=== PATIENT | female | born 1940 | race Caucasian/White ===

== ENCOUNTER 2021-09-13 09:28 | Inpatient (IN) | payer MEDICARE ==
[2021-09-13] VITALS (13 sets, daily range): BP systolic 99–123; BP diastolic 55–84
[~2021-09-13] VITALS: Ht 170.2 cm; Wt 68.6 kg
--- NOTE | 2021-09-13 09:40 | PHYS DOC ---
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 She reports that she began to feel slightly weak yesterday. Her daughter reportedly could not get a hold of her, so she called for a welfare check, EMS was called to the home and the patient was found in her bed, with vomit on her clothing. The patient denies fevers. She reports generalized weakness. She reports that she thinks the cough just began yesterday. No sputum production reported. She denies chest pain or dyspnea. She denies headache, dizziness. She denies fall or head injury. She reports generalized abdominal pain and nausea. Her pain is mostly located in the right upper quadrant and right abdomen. She denies urinary symptoms. She is chronically incontinent of urine, no changes with that today. She began experiencing diarrhea symptoms yesterday as well. She denies hematemesis, melena or hemato chezia. She denies having a fever at home, she is afebrile here. She denies recent travel, sick contacts, recent hospitalization. No recent antibiotic use. She reports having no medical problems, reportedly takes no medications. Her glucose is over 200 with EMS. Records here to report that she has a history of hypertension. In route and on arrival she is hypotensive and tachycardic. An IV was established by EMS, a small fluid bolus was initiated, though she has not received much of this by the time she arrived. Review of Systems: Review of Systems: Constitutional: Denies fever or chills. Generalized malaise, fatigue, generalized weakness. Eyes: Denies change in visual acuity. [] HENT: Denies nasal congestion or sore throat. [] Respiratory: Mild, dry cough. Denies dyspnea. Cardiovascular: Denies chest pain or edema. [] GI: Reports abdominal pain, nausea, vomiting, diarrhea. : Denies dysuria. Chronic and unchanged urinary incontinence. Musculoskeletal: Denies back pain or joint pain. [] Integument: Denies rash. [] Neurologic: Denies headache, focal weakness or sensory changes. Generalized weakness. Denies dizziness or syncope. Psychiatric: Denies depression or anxiety. [] Heart Score: C/O Chest Pain: No Risk Factors: Risk Factors: DM, Current or recent (<one month) smoker, HTN, HLP, family hist ory of CAD, obesity. Risk Scores: Score 0 - 3: 2.5% MACE over next 6 weeks - Discharge Home Score 4 - 6: 20.3% MACE over next 6 weeks - Admit for Clinical Observation Score 7 - 10: 72.7% MACE over next 6 weeks - Early Invasive Strategies Allergies: Allergies: Allergies Coded Allergies Type Severity Reaction Last Updated Verified No Known Drug Allergies 11/30/15 No Physical Exam: PE: Constitutional: She is frail, ill-appearing, awake, conversant HENT: Normocephalic, atraumatic, oropharynx is patent and clear, mucous membranes are tacky Eyes: PERRL, EOMI, conjunctival pallor noted, no scleral icterus, no discharge. [] Neck: Normal range of motion, no tenderness, supple, no stridor. No meningismus. Trachea midline. No JVD Cardiovascular: Tachycardic, regular, +2 radial and +2 dorsalis pedis pulses bilaterally, distal extremities are cool and pale. Lungs & Thorax: Managed breath sounds in bilateral bases. Mild tachypnea noted. No rales, rhonchi. Speaks in full and clear sentences. Equal chest rise. Mid and upper lung olivera are clear to auscultation. Abdomen: Abdomen soft, nondistended, exquisite tenderness to palpation in the right upper quadrant, right mid abdomen and right lower quadrant. Voluntary guarding is noted. Hypoactive bowel sounds. No palpable pulsatile mass. No flank abdominal ecchymoses are noted. No palpable organomegaly Skin: Warm, dry, no erythema, no rash. Diffuse pallor. Poor skin turgor. No open wounds. No jaundice. Back: No tenderness, no CVA tenderness. [] Extremities: No tenderness, no cyanosis, no clubbing, ROM intact, no edema, no calf tenderness Neurologic: She is awake, oriented x3, no facial asymmetry, moves all 4 extre mities equally, sensation is grossly intact, localizes to pain, gag reflex intact, speech is clear and fluent. She does appear to be mildly lethargic and drowsy and ill-appearing. Psychologic: Affect is flat, she is cooperative and pleasant EKG: EKG: EKG interpreted at 0935 Rhythm is sinus tachycardia Rate is 124 bpm No STEMI Radiology/Procedures: Radiology/Procedures: IMAGING REPORT Signed PATIENT: JOE MCDONALD ACCOUNT: [id number] : 1940 LOCATION: ER AGE: 80 SEX: F EXAM STATUS: REG ER ORD. PHYSICIAN: GLORIA ALCAZAR DO REASON: cough, abdominal pain, n/v PROCEDURE: PORTABLE CHEST 1V EXAM: Chest, single view. HISTORY: Cough. COMPARISON: None. FINDINGS: A frontal view of the chest obtained. There is right lower lobe infiltrate. There is no pleural effusion or pneumothorax. The heart is normal in size. IMPRESSION: Right lower lobe pneumonia. Follow-up to confirm resolution. Electronically signed by: Mindy Lee MD (09/13/2021 10:37 AM) [id number] DICTATED and SIGNED BY: MINDY LEE MD DATE: 09/13/21 [id number] IMAGING REPORT Signed PATIENT: JOE MCDONALD ACCOUNT: [id number] : 1940 LOCATION: ER AGE: 80 SEX: F EXAM STATUS: REG ER ORD. PHYSICIAN: GLORIA ALCAZAR DO REASON: RUQ pain, vomiting PROCEDURE: ABDOMEN LTD EXAM: Abdomen sonogram. HISTORY: Pain. TECHNIQUE: Sonographic imaging of the abdomen was performed. COMPARISON: None. FINDINGS: The liver is normal in size. There are cyst with internal septation or debris within the right hepatic lobe measuring 1.8 cm and 1.5 cm. The gallbladder is unremarkable. The common bile duct is normal in caliber. The pancreas, right kidney and inferior vena cava are unremarkable. IMPRESSION: 1. Small benign-appearing hepatic cysts. 2. No acute sonographic finding. Electronically signed by: Mindy Lee MD (09/13/2021 10:57 AM) [id number] DICTATED and SIGNED BY: MINDY LEE MD DATE: 09/13/21 [id number] IMAGING REPORT Signed PATIENT: JOE MCDONALD ACCOUNT: [id number] : 1940 LOCATION: 6 SOUTH AGE: 80 SEX: F EXAM STATUS: ADM IN ORD. PHYSICIAN: GLORIA ALCAZAR DO REASON: abdominal pain, n/v, R sided pain sepsis PROCEDURE: CT ABDOMEN PELVIS WO CONTRAST EXAM: Abdomen and pelvis CT without intravenous contrast. HISTORY: Pain. TECHNIQUE: Computed tomographic images of the abdomen and pelvis were obtained without contrast. Multiplanar reformatting was performed. *One or more of the following individualized dose reduction techniques were utilized for this examination: 1. Automated exposure control. 2. Adjustment of the mA and/or kV according to patient size. 3. Use of iterative reconstruction technique. COMPARISON: None. FINDINGS: Evaluation of the lower thorax demonstrates right middle and lower lobe atelectasis, infiltrate or scarring. There is left posterior dependent atelectasis. There is a 3 mm nodule within the right lower lobe. There is coronary artery calcification. There is mild cardia megaly. There is perihepatic fluid with attenuation favoring acute on subacute blood products, primarily along the lateral right hepatic lobe. There are linear hypodensities within the inferior right hepatic lobe, the appearance of which favor lacerations. There is additional moderate hemoperitoneum along the greater and lesser curvatures of the stomach, bettina hepatis and dependent portions of the pelvis. There are small hepatic cysts. The gallbladder is unremarkable. The pancreas is unremarkable. There is a 1.8 cm left adrenal nodule, the attenuation which favors an adenoma. There are multiple calcified granulomas within the spleen. There is a small amount of perihepatic fluid due to aforementioned hemoperitoneum. There is mild wall thickening involving the distal gastric antrum and pylorus. However, there are no secondary findings to suggest perforation in this location. There is a small proximal duodenal diverticulum. There are tiny nonobstructing right greater than left renal stones. There is no hydronephrosis. There is suggestion of a small lateral right renal cyst measuring 1.4 cm. There is no appendicitis. There is no bowel obstruction. The bladder is unremarkable. The aorta is normal in caliber. There is aortic and aortic branch vessel atherosclerosis. There is stranding within the right ventral peritoneum. This is likely due to the presence of hemoperitoneum. There is a right hip arthroplasty. There is lumbar scoliosis and multilevel degenerative listhesis. There is degenerative change throughout the lumbar spine, resulting in stenosis at multiple levels. 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 IMPRESSION: 1. Moderate hemoperitoneum due to multiple lateral right hepatic lobe lacerations. The lacerations do not clearly extend to the bettina hepatis. There is active extravasation. Surgical consultation is recommended. 2. Distal gastric antrum and pyloric wall thickening with surrounding stranding, likely due to the presence of hemoperitoneum. There are no convincing secondary findings to suggest intraperitoneal hemorrhage related to bowel perforation. 3. 1.8 cm left adrenal adenoma. 4. Bilateral nephrolithiasis. 5. Small hepatic cysts and possible small right renal cyst, the latter of which is difficult to assess in the absence of contrast. Nonemergent renal sonography can be performed to exclude a solid lesion. 6. Right middle and lower lobe atelectasis, infiltrate or scarring. Findings were discussed with Dr. Alcazar at 1230 hours on 09/13/2021. FOR INTERNAL CODING PURPOSES RESULT CODE: (C) Electronically signed by: Mindy Lee MD (09/13/2021 12:41 PM) [id number] DICTATED and SIGNED BY: MINDY LEE MD DATE: 09/13/21 [id number] 0 IMAGING REPORT Signed PATIENT: JOE MCDONALD ACCOUNT: [id number] : 1940 LOCATION: SOUTH AGE: 80 SEX: F EXAM STATUS: ADM IN ORD. PHYSICIAN: GLORIA ALCAZAR DO REASON: liver lac, hemoperitoneum PROCEDURE: CT ABD PELV W/ IV CONTRST ONLY PQRS Compliance Statement: One or more of the following individualized dose reduction techniques were utilized for this examination: 1. Automated exposure control 2. Adjustment of the mA and/or kV according to patient size 3. Use of iterative reconstruction technique CT ABDOMEN+PELVIS W Clinical Indication: Reason: liver lac, hemoperitoneum Comparison: CT abdomen and pelvis without contrast, about 2 hours prior on the same day. Technique: Helical CT imaging of the abdomen and pelvis is performed after 60 cc of Omnipaque 300 IV contrast. Oral contrast not administered. Findings: There is trace right pleural effusion. Coronary artery disease. Cardiac size normal. There is atelectasis or scarring in the periphery of the right lung base. A couple of small cysts are seen in the liver. A definitive liver laceration on this study is not identified. The crescentic hypodensities in the inferior right hepatic lobe suggestive of lacerations are not demonstrated. There is a linear hypodensity of the right hepatic lobe due to beam hardening artifact from external wires but this was not present on the prior study. No active extravasation is seen. Perihepatic hemoperitoneum has moderately increased. Hemoperitoneum adjacent to the stomach is unchanged. Hemoperitoneum at the bettina hepatis is less, probably redistributed. Moderate hemoperitoneum in the pelvis is not significant changed. Perisplenic fluid is unchanged and is not hyperdense. Multiple calcified granulomas in the spleen. Left adrenal nodule is stable. Pancreas and right adrenal gland are unremarkable. There is no hydronephrosis. Nonobstructing right renal calculus. No dilated small bowel. No colon wall thickening is appreciated. The pancreas is normal. Right hip arthroplasty. No acute right rib fracture is identified. IMPRESSION: 1. Acute and subacute hemoperitoneum has moderately increased. There is new h yperdense blood that is predominantly perihepatic. Hemorrhage adjacent to the stomach is unchanged. Hemorrhage at the bettina hepatis is mildly less, probably redistributed. Moderate pelvic hemoperitoneum is not significantly changed. 2. A definitive liver laceration is not seen. The epicenter of the acute hemorrhage is around the liver and it remains the most likely source. 3. There is distal gastric wall thickening which could be due to gastritis. No intraperitoneal free air is identified to suggest perforation. 4. Trace right pleural effusion. 5. Atelectasis or scarring in the periphery of the right lung base. FOR INTERNAL CODING PURPOSES Critical result: Findings discussed with GLORIA ALCAZAR DO at 09/13/2021 2:28 PM. RESULT CODE: (C) 1. Electronically signed by: Armando Christianson MD (09/13/2021 2:51 PM) [facility] DICTATED and SIGNED BY: ARMANDO CHRISTIANSON MD DATE: 09/13/21 [id number] 0 Course & Med Decision Making: Course & Med Decision Making Pertinent Labs and Imaging studies reviewed. (See chart for details) IV fluid boluses are given, 30mL/kg sepsis bolus given. Blood cultures obtained, lactate obtained. IV Zosyn empirically given. Chest x-ray was read as right lower lobe pneumonia, atelectasis was noted by me. No obvious pneumothorax. Ultrasound does not demonstrate any biliary or gallbladder problems. I ordered a CT of the abdomen and pelvis. She initially declined any pain medicines or antiemetics. She did ultimately agree to receiving these, so she is given a dose of IV fentanyl and IV Zofran. She is feeling much better. She is more awake and alert. Vital signs are markedly improved. Heart rate is in the low 100s, blood pressure is in the 130 systolic now. I have discussed the findings, differential diagnosis and plan of care with her. I recommend hospitalization, continue treatment of sepsis. She is accepted for admission by Dr. Flores. The patient is comfortable with the plan of care. She appears to be clinically markedly improved and is stabilizing quickly. CT of the abdomen and pelvis was performed, without contrast, and returned showing hemoperitoneum, with bleeding around the liver. The radiologist reported findings consistent with likely liver laceration with active extravasation. I contacted Dr. Stafford of general surgery, he recommends CT with contrast. The patient has already been hydrated. CT with contrast reveals no evidence of liver laceration, but possible expansion of hemoperitoneum. Hemoglobin dropped less than 1 g. I did order type and screen and 2 units of blood to be transfused. Her blood pressure is still markedly improved, map over 60. She is mildly tachycardic. She does report having some increased pain however. She is given another dose of IV fentanyl. She did consent for transfusion of blood products. Interventional radiologist was consulted, he saw the patient, he reviewed the films with me. He recommends no acute intervention, he is unsure if angiography would be of much help at this time, but he will follow along with her. I spoke again with Dr. Stafford regarding the findings. He will see her in consultation. I have updated the hospitalist service of the findings. She will be admitted to the ICU. The patient is awake, alert, conversant, verbalized understanding of all diagnoses and recommendations. She is comfortable proceeding with admission. She still appears to be markedly clinically improved. Dragon Disclaimer: Dragon Disclaimer: This electronic medical record was generated, in whole or in part, using a voice recognition dictation system. Departure Departure Impression: Primary Impression: Sepsis Additional Impressions: Right lower lobe pneumonia Right sided abdominal pain Nausea and vomiting Lactic acidosis Hemoperitoneum Anemia Disposition: ADMITTED INPATIENT (Dr. Flores) Admitting Physician: GREGORIO Condition: GUARDED Referrals: JERRY DAWSON MD (PCP) GLORIA ALCAZAR DO Sep 13, 2021 09:40
[2021-09-13] MEDS ORDERED: IV NORMAL SALINE 1000ML BAG 1,000 ML IV ONE ×2 (09:45→10:15)
[2021-09-13] MEDS ORDERED: PIPERACILLIN/TAZOBACTAM 3.375 GM in IV NORMAL SALINE 50ML 50 ML IV ONE (10:00)
[2021-09-13 10:03] LABS: BASO # 0.1 x10^3/uL (0.0-0.2); BASO % 0 % (0-3); EOS % 0 % (0-3); HEMATOCRIT 28.6 % (36.0-47.0); HEMOGLOBIN 9.2 g/dL (12.0-15.5); LYMPH # 1.3 x10^3/uL (1.0-4.8); LYMPH % 6 % (24-48); MEAN CORPUSCULAR HEMOGLOBIN 32 pg (25-35); MEAN CORPUSCULAR HGB CONC 32 g/dL (31-37); MEAN CORPUSCULAR VOLUME 99 fL (79-100); MONO # 1.1 x10^3/uL (0.0-1.1); MONO % 5 % (0-9); NEUT # 18.9 x10^3/uL (1.8-7.7); NEUT % 89 % (31-73); PLATELET COUNT 468 x10^3/uL (140-400); RED BLOOD COUNT 2.89 x10^6/uL (3.50-5.40); RED CELL DISTRIBUTION WIDTH 14.5 % (11.5-14.5); WHITE BLOOD COUNT 21.3 x10^3/uL (4.0-11.0)
[2021-09-13 10:11] LABS: CALCIUM 8.1 mg/dL (8.5-10.1); CREATININE 1.5 mg/dL (0.6-1.0); GFR 33.2; POTASSIUM 4.2 mmol/L (3.5-5.1)
[2021-09-13 10:18] LABS: ALBUMIN 2.7 g/dL (3.4-5.0); ALBUMIN/GLOBULIN RATIO 0.8 (1.0-1.7); PHOSPHORUS 4.5 mg/dL (2.6-4.7); TOTAL BILIRUBIN 1.1 mg/dL (0.2-1.0)
[2021-09-13 10:27] LABS: BILIRUBIN,URINE NEGATIVE (NEG); CLARITY,URINE CLEAR; COLOR,URINE AMBER; NITRITE,URINE NEGATIVE (NEG); PH,URINE 5.5 (<5.0-8.0); PROTEIN,URINE 100 mg/dL (NEG-TRACE); UROBILINOGEN,URINE 0.2 mg/dL (0.2 mg/dL)
--- NOTE | 2021-09-13 10:40 | RAD ---
EXAM: Chest, single view. HISTORY: Cough. COMPARISON: None. FINDINGS: A frontal view of the chest obtained. There is right lower lobe infiltrate. There is no ple ural effusion or pneumothorax. The heart is normal in size. IMPRESSION: Right lower lobe pneumonia. Follow-up to confirm resolution. Electronically signed by: Mindy Squires MD (09/13/2021 10:37 AM) [id number]
--- NOTE | 2021-09-13 10:49 | EKG ---
[facility] [address] [place] [address] Test Date: 2021-09-13 Test Time: 09:33:07 Pat Name: JOE MCDONALD Department: Room: Gender: F Shade Hanger: : 1940 Requested By: GLORIA ALCAZAR Order Number: [id number] Reading MD: Gary Lopez Measurements Intervals [place] Rate: 124 P: -90 PA: 72 QRS: 11 QRSD: 94 T: 70 QT: 320 QTc: 464 Interpretive Statements SINUS TACHYCARDIA T ABNORMALITY IN HIGH LATERAL LEADS Electronically Signed On 09-16-2021 14:09:33 [employer] by Gary Lopez
--- NOTE | 2021-09-13 10:59 | RAD ---
EXAM: Abdomen sonogram. HISTORY: Pain. TECHNIQUE: Sonographic imaging of the abdomen was performed. COMPARISON: None. FINDINGS: The liver is normal in size. There are cyst with internal septation or debris within the ri ght hepatic lobe measuring 1.8 cm and 1.5 cm. The gallbladder is unremarkable. The common bile duct i s normal in caliber. The pancreas, right kidney and inferior vena cava are unremarkable. IMPRESSION: 1. Small benign-appearing hepatic cysts. 2. No acute sonographic finding. Electronically signed by: Mindy Squires MD (09/13/2021 10:57 AM) [id number]
[2021-09-13] MEDS ORDERED: ONDANSETRON PF 4 MG/2 ML VIAL. IVP ONE ×2 (11:00→15:15)
[2021-09-13] MEDS ORDERED: fentaNYL PF VIAL 100 MCG/2 ML VIAL IVP ONE ×2 (11:00→15:15)
[2021-09-13 11:13] LABS: BACTERIA,URINE 0 /HPF (0-FEW); RBC,URINE 0 /HPF (0-2)
--- NOTE | 2021-09-13 12:08 | PDOC1 ---
History and Physical Date of Service: DOS: DATE: 09/13/21 TIME: 12:00 Chief Complaint: Chief Complain: Abdominal pain History of Present Illness: HPI: History obtained from discussion with the ED physician and chart review: 80 year old female brought in by EMS, from home, with report of generalized abdominal pain, weakness, mild cough and several episodes of nausea and vomiting. She reports that she began to feel slightly weak yesterday. Her daughter reportedly could not get a hold of her, so she called for a welfare check, EMS was called to the home and the patient was found in her bed, with vomit on her clothing. The patient denies fevers. She reports generalized weakness. She reports that she thinks the cough just began yesterday. No sputum production reported. She denies chest pain or dyspnea. She denies headache, dizziness. She denies fall or head injury. She reports generalized a bdominal pain and nausea. Her pain is mostly located in the right upper quadrant and right abdomen. She denies urinary symptoms. She is chronically incontinent of urine, no changes with that today. She began experiencing diarrhea symptoms yesterday as well. She denies hematemesis, melena or hematochezia. She denies having a fever at home, she is afebrile here. She denies recent travel, sick contacts, recent hospitalization. No recent antibiotic use. She reports having no medical problems, reportedly takes no medications. Her glucose is over 200 with EMS. Records here to report that she has a history of hypertension. In route and on arrival she is hypotensive and tachycardic. An IV was established by EMS, a small fluid bolus was initiated, though she has not received much of this by the time she arrived. Of note, patient denies any history of falls, trauma or blood thinners or car accidents. Patient states that she does go to the gym about 3 times a week but she denies any accidents. CT reports hemoperitoneum in the area multiple liver lacerations. Patient hemodynamically stable after 2 L NS bolus. Unknown baseline hemoglobin levels. Past Medical/Surgical History: PMH/PSH: Past Medical History: Glaucoma, Hypertension history of rectal tumor, history of breast tumor Past Surgical History: Hip Replacement Allergies: Allergies: Coded Allergies: No Known Drug Allergies (Unverified , 09/13/21) Family History: Family History: Reviewed with no relevant findings in the chart Social History: Social History: Denies alcohol, tobacco or drug abuse. Current Medications: Current Medications Current Medications Sodium Chloride 1,000 ml @ 1,000 mls/hr 1X ONCE IV Last administered on 09/13/21at 09:45; Start 09/13/21 at 09:45; Stop 09/13/21 at 10:44; Status DC Piperacillin Sod/ Tazobactam Sod 3.375 gm/Sodium Chloride 50 ml @ 100 mls/hr 1X ONCE IV Last administered on 09/13/21at 10:22; Start 09/13/21 at 10:00; Stop 09/13/21 at 10:29; Status DC Sodium Chloride 1,000 ml @ 1,000 mls/hr 1X ONCE IV Last administered on 09/13/21at 10:23; Start 09/13/21 at 10:15; Stop 09/13/21 at 11:14; Status DC Fentanyl Citrate (Fentanyl 2ml Vial) 50 mcg 1X ONCE IVP Last administered on at 11:11; Start 09/13/21 at 11:00; Stop 09/13/21 at 11:01; Status DC Ondansetron HCl (Zofran) 4 mg 1X ONCE IVP Last administered on 09/13/21at 11:09; Start 09/13/21 at 11:00; Stop 09/13/21 at 11:01; Status DC ROS: Review of Systems Review of System REVIEW OF SYSTEMS: GENERAL: Denies weakness SKIN: No bruising, hair changes or rashes. EYES: No blurred, double or loss of vision. NOSE AND THROAT: No history of nosebleeds, hoarseness or sore throat. HEART: No history of palpitations, chest pain or shortness of breath on exertion. LUNGS: Denies cough, hemoptysis, wheezing or shortness of breath. GASTROINTESTINAL: Positive for right-sided abdominal pain. Positive for nausea vomiting GENITOURINARY: No history of frequency, urgency, hesitancy or nocturia. NEUROLOGIC: Denies history of numbness, tingling, or tremor. PSYCHIATRIC: No history of panic, anxiety or depression. ENDOCRINE: No history of heat or cold intolerance, polyuria or polydipsia. EXTREMITIES: Denies joint pain, pain on walking or stiffness. Physical Exam: Vital Signs: Vital Signs Date Time Temp Pulse Resp B/P (MAP) Pulse Ox O2 Delivery O2 Flow Rate FiO2 09/13/21 11:11 20 97 Room Air 09/13/21 10:22 108 95/53 (67) 09/13/21 09:29 97.3 97.3 Physcial Exam: General: Frail and mildly lethargic and drowsy and ill-appearing. HEENT: Pupils equally round and reactive to light, EOMI, no discharge, normal conjunctiva Neck: Supple, no nuchal rigidity, no JVD, trachea midline, no tenderness Cardiac: RRR, no murmurs, no gallops, no rubs Chest/Lungs: CTAB, no wheeze, no rhonchi, no crackles Abdomen: Abdomen soft, nondistended, exquisite tenderness to palpation in the right upper quadrant, right mid abdomen and right lower quadrant. Voluntary guarding is noted. Hypoactive bowel sounds. No palpable pulsatile mass. Back: No tenderness Extremities: no edema, pulses intact, non-tender,capillary refill <3 sec bilateral upper and lower extremities, Neuro: Alert and oriented x 4, no focal deficits, normal speech Labs: Labs: Laboratory Tests Test 09/13/21 09:43 09/13/21 10:17 White Blood Count 21.3 x10^3/uL (4.0-11.0) Red Blood Count 2.89 x10^6/uL (3.50-5.40) Hemoglobin 9.2 g/dL (12.0-15.5) Hematocrit 28.6 % (36.0-47.0) Mean Corpuscular Volume 99 fL (79-100) Mean Corpuscular Hemoglobin 32 pg (25-35) Mean Corpuscular Hemoglobin Concent 32 g/dL (31-37) Red Cell Distribution Width 14.5 % (11.5-14.5) Platelet Count 468 x10^3/uL (140-400) Neutrophils (%) (Auto) 89 % (31-73) Lymphocytes (%) (Auto) 6 % (24-48) Monocytes (%) (Auto) 5 % (0-9) Eosinophils (%) (Auto) 0 % (0-3) Basophils (%) (Auto) 0 % (0-3) Neutrophils # (Auto) 18.9 x10^3/uL (1.8-7.7) Lymphocytes # (Auto) 1.3 x10^3/uL (1.0-4.8) Monocytes # (Auto) 1.1 x10^3/uL (0.0-1.1) Eosinophils # (Auto) 0.0 x10^3/uL (0.0-0.7) Basophils # (Auto) 0.1 x10^3/uL (0.0-0.2) Sodium Level 143 mmol/L (136-145) Potassium Level 4.2 mmol/L (3.5-5.1) Chloride Level 105 mmol/L (98-107) Carbon Dioxide Level 24 mmol/L (21-32) Anion Gap 14 (6-14) Blood Urea Nitrogen 25 mg/dL (7-20) Creatinine 1.5 mg/dL (0.6-1.0) Estimated GFR (Cockcroft-Gault) 33.2 BUN/Creatinine Ratio 17 (6-20) Glucose Level 178 mg/dL (70-99) Lactic Acid Level 3.9 mmol/L (0.4-2.0) Calcium Level 8.1 mg/dL (8.5-10.1) Phosphorus Level 4.5 mg/dL (2.6-4.7) Magnesium Level 2.0 mg/dL (1.8-2.4) Total Bilirubin 1.1 mg/dL (0.2-1.0) Aspartate Amino Transf (AST/SGOT) 12 U/L (15-37) Alanine Aminotransferase (ALT/SGPT) 15 U/L (14-59) Alkaline Phosphatase 69 U/L (46-116) Troponin I High Sensitivity 16 ng/L (4-50) JF-Bic-J-Type Natriuretic Peptide 970 pg/mL (0-449) Total Protein 6.0 g/dL (6.4-8.2) Albumin 2.7 g/dL (3.4-5.0) Albumin/Globulin Ratio 0.8 (1.0-1.7) Lipase 63 U/L (73-393) Urine Collection Type U cath Urine Color Brianna Urine Clarity Clear Urine pH 5.5 (<5.0-8.0) Urine Specific [place] 1.020 (1.000-1.030) Urine Protein 100 mg/dL (NEG-TRACE) Urine Glucose (UA) Negative mg/dL (NEG) Urine Ketones (Stick) 15 mg/dL (NEG) Urine Blood Negative (NEG) Urine Nitrite Negative (NEG) Urine Bilirubin Negative (NEG) Urine Urobilinogen Dipstick 0.2 mg/dL (0.2 mg/dL) Urine Leukocyte Esterase Negative (NEG) Urine RBC 0 /HPF (0-2) Urine WBC 5-10 /HPF (0-4) Urine Squamous Epithelial Cells Few /LPF Urine Bacteria 0 /HPF (0-FEW) Urine Mucus Marked /LPF Laboratory Tests Test 09/13/21 09:43 09/13/21 10:17 White Blood Count 21.3 x10^3/uL (4.0-11.0) Red Blood Count 2.89 x10^6/uL (3.50-5.40) Hemoglobin 9.2 g/dL (12.0-15.5) Hematocrit 28.6 % (36.0-47.0) Mean Corpuscular Volume 99 fL (79-100) Mean Corpuscular Hemoglobin 32 pg (25-35) Mean Corpuscular Hemoglobin Concent 32 g/dL (31-37) Red Cell Distribution Width 14.5 % (11.5-14.5) Platelet Count 468 x10^3/uL (140-400) Neutrophils (%) (Auto) 89 % (31-73) Lymphocytes (%) (Auto) 6 % (24-48) Monocytes (%) (Auto) 5 % (0-9) Eosinophils (%) (Auto) 0 % (0-3) Basophils (%) (Auto) 0 % (0-3) Neutrophils # (Auto) 18.9 x10^3/uL (1.8-7.7) Lymphocytes # (Auto) 1.3 x10^3/uL (1.0-4.8) Monocytes # (Auto) 1.1 x10^3/uL (0.0-1.1) Eosinophils # (Auto) 0.0 x10^3/uL (0.0-0.7) Basophils # (Auto) 0.1 x10^3/uL (0.0-0.2) Sodium Level 143 mmol/L (136-145) Potassium Level 4.2 mmol/L (3.5-5.1) Chloride Level 105 mmol/L (98-107) Carbon Dioxide Level 24 mmol/L (21-32) Anion Gap 14 (6-14) Blood Urea Nitrogen 25 mg/dL (7-20) Creatinine 1.5 mg/dL (0.6-1.0) Estimated GFR (Cockcroft-Gault) 33.2 BUN/Creatinine Ratio 17 (6-20) Glucose Level 178 mg/dL (70-99) Lactic Acid Level 3.9 mmol/L (0.4-2.0) Calcium Level 8.1 mg/dL (8.5-10.1) Phosphorus Level 4.5 mg/dL (2.6-4.7) Magnesium Level 2.0 mg/dL (1.8-2.4) Total Bilirubin 1.1 mg/dL (0.2-1.0) Aspartate Amino Transf (AST/SGOT) 12 U/L (15-37) Alanine Aminotransferase (ALT/SGPT) 15 U/L (14-59) Alkaline Phosphatase 69 U/L (46-116) Troponin I High Sensitivity 16 ng/L (4-50) ML-Ggd-U-Type Natriuretic Peptide 970 pg/mL (0-449) Total Protein 6.0 g/dL (6.4-8.2) Albumin 2.7 g/dL (3.4-5.0) Albumin/Globulin Ratio 0.8 (1.0-1.7) Lipase 63 U/L (73-393) Urine Collection Type U cath Urine Color Brianna Urine Clarity Clear Urine pH 5.5 (<5.0-8.0) Urine Specific [place] 1.020 (1.000-1.030) Urine Protein 100 mg/dL (NEG-TRACE) Urine Glucose (UA) Negative mg/dL (NEG) Urine Ketones (Stick) 15 mg/dL (NEG) Urine Blood Negative (NEG) Urine Nitrite Negative (NEG) Urine Bilirubin Negative (NEG) Urine Urobilinogen Dipstick 0.2 mg/dL (0.2 mg/dL) Urine Leukocyte Esterase Negative (NEG) Urine RBC 0 /HPF (0-2) Urine WBC 5-10 /HPF (0-4) Urine Squamous Epithelial Cells Few /LPF Urine Bacteria 0 /HPF (0-FEW) Urine Mucus Marked /LPF Images: Images PROCEDURE: ABDOMEN LTD EXAM: Abdomen sonogram. HISTORY: Pain. TECHNIQUE: Sonographic imaging of the abdomen was performed. COMPARISON: None. FINDINGS: The liver is normal in size. There are cyst with internal septation or debris within the right hepatic lobe measuring 1.8 cm and 1.5 cm. The gallbladder is unremarkable. The common bile duct is normal in caliber. The pancreas, right kidney and inferior vena cava are unremarkable. IMPRESSION: 1. Small benign-appearing hepatic cysts. 2. No acute sonographic finding. PROCEDURE: PORTABLE CHEST 1V EXAM: Chest, single view. HISTORY: Cough. COMPARISON: None. FINDINGS: A frontal view of the chest obtained. There is right lower lobe infiltrate. There is no pleural effusion or pneumothorax. The heart is normal in size. IMPRESSION: Right lower lobe pneumonia. Follow-up to confirm resolution. Pending CT chest abdomen pelvis Assessment/Plan Assessment/Plan Problem List: Sepsis Hemodynamic instability secondary to acute blood loss Multiple liver lacerations Acute right lower lobe pneumonia, possible gram negative organisms BRII due to vasomotor nephropathy ATN Lactic acidosis History of right hip replacement History of rectal tumor History of breast cancer Admit to hospitalist service for further management Pending CT a of the abdomen pelvis IR consult if there is easily targeted extravasation General surgery consult for liver laceration Trend hemoglobin Serial abdominal exams Continue IV fluids Continue empiric IV antibiotics Contraindicated at this time for DVT prophylaxis Protonix GI prophylaxis ADA diet CODE STATUS assumed full code Discussed with RN and SW Disposition inpatient management as above DPOA: Daughter Justifications for Admission Other Justification TAYLA ACOSTA MD Sep 13, 2021 12:08
[2021-09-13 12:09] LABS: INFLUENZA A PATIENT NEGATIVE (NEGATIVE); INFLUENZA B PATIENT NEGATIVE (NEGATIVE)
[2021-09-13] MEDS ORDERED: DOCUSATE SODIUM 100 MG CAPSULE. PO PRN (12:15)
[2021-09-13] MEDS ORDERED: SENNOSIDES 8.6 MG TABLET PO PRN (12:15)
[2021-09-13] MEDS ORDERED: diphenhydrAMINE 50 MG/ML VIAL IVP PRN (12:15)
[2021-09-13] MEDS ORDERED: PROCHLORPERAZINE 10 MG/2 ML VIAL. IV PRN (12:15)
[2021-09-13] MEDS ORDERED: ACETAMINOPHEN 325 MG TABLET. PO PRN (12:15)
[2021-09-13] MEDS ORDERED: ONDANSETRON PF 4 MG/2 ML VIAL. IVP PRN (12:15)
[2021-09-13] MEDS: IV NORMAL SALINE 1000ML BAG 1,000 ML IV SCH ×2 (12:15→23:49)
[2021-09-13] MEDS ORDERED: LORazepam 0.5 MG TABLET PO PRN (12:15)
[2021-09-13] MEDS ORDERED: DEXTROSE 50% 25 GM / 50ML DISP.SYRIN. IV PRN (12:15)
[2021-09-13] MEDS ORDERED: diphenhydrAMINE HCL 25 MG CAPSULE PO PRN ×2 (12:15)
[2021-09-13] MEDS ORDERED: ZOLPIDEM 5 MG TABLET. PO PRN (12:15)
--- NOTE | 2021-09-13 12:44 | RAD ---
EXAM: Abdomen and pelvis CT without intravenous contrast. HISTORY: Pain. TECHNIQUE: Computed tomographic images of the abdomen and pelvis were obtained without contrast. Mult iplanar reformatting was performed. *One or more of the following individualized dose reduction techniques were utilized for this examina tion: 1. Automated exposure control. 2. Adjustment of the mA and/or kV according to patient size. 3. Use of iterative reconstruction technique. COMPARISON: None. FINDINGS: Evaluation of the lower thorax demonstrates right middle and lower lobe atelectasis, infilt rate or scarring. There is left posterior dependent atelectasis. There is a 3 mm nodule within the ri ght lower lobe. There is coronary artery calcification. There is mild cardia megaly. There is perihepatic fluid with attenuation favoring acute on subacute blood products, primarily jozef g the lateral right hepatic lobe. There are linear hypodensities within the inferior right hepatic lo be, the appearance of which favor lacerations. There is additional moderate hemoperitoneum along the greater and lesser curvatures of the stomach, bettina hepatis and dependent portions of the pelvis. There are small hepatic cysts. The gallbladder is unremarkable. The pancreas is unremarkable. There i s a 1.8 cm left adrenal nodule, the attenuation which favors an adenoma. There are multiple calcified granulomas within the spleen. There is a small amount of perihepatic fluid due to aforementioned hem operitoneum. There is mild wall thickening involving the distal gastric antrum and pylorus. However, there are no secondary findings to suggest perforation in this location. There is a small proximal duodenal divert iculum. There are tiny nonobstructing right greater than left renal stones. There is no hydronephrosi s. There is suggestion of a small lateral right renal cyst measuring 1.4 cm. There is no appendicitis. There is no bowel obstruction. The bladder is unremarkable. The aorta is no rmal in caliber. There is aortic and aortic branch vessel atherosclerosis. There is stranding within the right ventral peritoneum. This is likely due to the presence of hemoperitoneum. There is a right hip arthroplasty. There is lumbar scoliosis and multilevel degenerative listhesis. There is degenerat jose change throughout the lumbar spine, resulting in stenosis at multiple levels. 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 IMPRESSION: 1. Moderate hemoperitoneum due to multiple lateral right hepatic lobe lacerations. The lacerations do not clearly extend to the bettina hepatis. There is active extravasation. Surgical consultation is rec ommended. 2. Distal gastric antrum and pyloric wall thickening with surrounding stranding, likely due to the pr esence of hemoperitoneum. There are no convincing secondary findings to suggest intraperitoneal hemor rhage related to bowel perforation. 3. 1.8 cm left adrenal adenoma. 4. Bilateral nephrolithiasis. 5. Small hepatic cysts and possible small right renal cyst, the latter of which is difficult to asses s in the absence of contrast. Nonemergent renal sonography can be performed to exclude a solid lesion . 6. Right middle and lower lobe atelectasis, infiltrate or scarring. Findings were discussed with Dr. Escamilla at 1230 hours on 09/13/2021. FOR INTERNAL CODING PURPOSES RESULT CODE: (C) Electronically signed by: Mindy Squires MD (09/13/2021 12:41 PM) [id number]
[2021-09-13 12:52] LABS: % BANDS 3 % (0-9); % LYMPHS 6 % (24-48); % MONOS 1 % (0-10); % SEGS 90 % (35-66); PLT ESTIMATE ADEQUATE (ADEQUATE)
[2021-09-13] MEDS ORDERED: VANCOMYCIN 1.25 GM in IV NORMAL SALINE 250ML 250 ML IV ONE (13:30)
[2021-09-13] MEDS ORDERED: CONTRAST GIVEN. MC PRN (13:45)
[2021-09-13] MEDS ORDERED: IOHEXOL 300 MG/ML 100ML VIAL. IV ONE (13:45)
[2021-09-13 13:54] LABS: BASO % 0 % (0-3); EOS % 0 % (0-3); HEMATOCRIT 25.7 % (36.0-47.0); HEMOGLOBIN 8.5 g/dL (12.0-15.5); LYMPH # 1.5 x10^3/uL (1.0-4.8); LYMPH % 8 % (24-48); MEAN CORPUSCULAR HEMOGLOBIN 33 pg (25-35); MEAN CORPUSCULAR HGB CONC 33 g/dL (31-37); MEAN CORPUSCULAR VOLUME 99 fL (79-100); MONO # 1.1 x10^3/uL (0.0-1.1); MONO % 6 % (0-9); NEUT # 17.1 x10^3/uL (1.8-7.7); NEUT % 87 % (31-73); PLATELET COUNT 409 x10^3/uL (140-400); RED BLOOD COUNT 2.59 x10^6/uL (3.50-5.40); RED CELL DISTRIBUTION WIDTH 14.4 % (11.5-14.5); WHITE BLOOD COUNT 19.7 x10^3/uL (4.0-11.0)
[2021-09-13 14:16] LABS: PROTHROMBIN TIME PATIENT 14.3 SEC (11.7-14.0)
--- NOTE | 2021-09-13 14:53 | RAD ---
PQRS Compliance Statement: One or more of the following individualized dose reduction techniques were utilized for this examinat ion: 1. Automated exposure control 2. Adjustment of the mA and/or kV according to patient size 3. Use of iterative reconstruction technique CT ABDOMEN+PELVIS W Clinical Indication: Reason: liver lac, hemoperitoneum Comparison: CT abdomen and pelvis without contrast, about 2 hours prior on the same day. Technique: Helical CT imaging of the abdomen and pelvis is performed after 60 cc of Omnipaque 300 IV contrast. Oral contrast not administered. Findings: There is trace right pleural effusion. Coronary artery disease. Cardiac size normal. There is atelect asis or scarring in the periphery of the right lung base. A couple of small cysts are seen in the liver. A definitive liver laceration on this study is not wanda ntified. The crescentic hypodensities in the inferior right hepatic lobe suggestive of lacerations ar e not demonstrated. There is a linear hypodensity of the right hepatic lobe due to beam hardening art ifact from external wires but this was not present on the prior study. No active extravasation is see n. Perihepatic hemoperitoneum has moderately increased. Hemoperitoneum adjacent to the stomach is unc hanged. Hemoperitoneum at the bettina hepatis is less, probably redistributed. Moderate hemoperitoneum in the pelvis is not significant changed. Perisplenic fluid is unchanged and is not hyperdense. Multiple calcified granulomas in the spleen. Le ft adrenal nodule is stable. Pancreas and right adrenal gland are unremarkable. There is no hydroneph rosis. Nonobstructing right renal calculus. No dilated small bowel. No colon wall thickening is appreciated. The pancreas is normal. Right hip arthroplasty. No acute right rib fracture is identified. IMPRESSION: 1. Acute and subacute hemoperitoneum has moderately increased. There is new hyperdense blood that is predominantly perihepatic. Hemorrhage adjacent to the stomach is unchanged. Hemorrhage at the bettina hepatis is mildly less, probably redistributed. Moderate pelvic hemoperitoneum is not significantly c hanged. 2. A definitive liver laceration is not seen. The epicenter of the acute hemorrhage is around the li mayuri and it remains the most likely source. 3. There is distal gastric wall thickening which could be due to gastritis. No intraperitoneal free air is identified to suggest perforation. 4. Trace right pleural effusion. 5. Atelectasis or scarring in the periphery of the right lung base. FOR INTERNAL CODING PURPOSES Critical result: Findings discussed with GLORIA ALCAZAR DO at 09/13/2021 2:28 PM. RESULT CODE: (C) 1. Electronically signed by: Armando Christianson MD (09/13/2021 2:51 PM) [facility] MED[facility] CENTERLeticia
[2021-09-13 15:22] LABS: % BANDS 11 % (0-9); % LYMPHS 5 % (24-48); % MONOS 5 % (0-10); % SEGS 79 % (35-66); PLT ESTIMATE INCREASED (ADEQUATE)
[2021-09-13 17:20] LABS: HEMATOCRIT 29.3 % (36.0-47.0); HEMOGLOBIN 9.5 g/dL (12.0-15.5); WHITE BLOOD COUNT 17.2 x10^3/uL (4.0-11.0)
[2021-09-13] MEDS: VANCOMYCIN PER PHARMACY MC PRN ×2 (17:56→17:57)
--- NOTE | 2021-09-13 17:56 | NUR ---
Pharmacy Vancomycin Dosing Note S:Consulted to monitor and dose vancomycin started 09/13/21. O:JOE MCDONALD is a 80 year old F with Sepsis Pneumonia . Height: 5 feet, 7 inches Weight: 68.6 kg [place] Body Weight: 61.60 Adjusted Body Weight: 64.40 Dosing Weight: Other Antibiotics: ZOSYN LABS: Last BUN: 25 Last Creatinine: 1.5 Creatinine Clearance: 29 mL/min Last WBC: 17.2 Last Procalcitonin: Tmax (past 24 hours): Microbiology: I/O: Drug Levels: Last level: on at Last dose given at Vancomycin Dosing: Loading Dose: x1 Dosing Weight: Target Trough: 15-20 A: Based on: HT, WT AND RENAL FUNCTION P: 1. Begin Vancomycin 750 mg IV q24 hours 2. Follow up Trough level on 09/15/21 at 1630 3. Pharmacy will continue to monitor, follow and adjust therapy as needed. AKBAR CHAMPION, [facility], 09/13/21 [id number]
[2021-09-13] MEDS: PIPERACILLIN/TAZOBACTAM 2.25 GM in IV NORMAL SALINE 50ML 50 ML IV SCH ×2 (18:29→23:48)
[2021-09-13] MEDS: FAMOTIDINE 20 MG TABLET. PO SCH (20:48)
[2021-09-14] VITALS (15 sets, daily range): BP systolic 102–150; BP diastolic 52–87
[2021-09-14 04:25] LABS: BASO # 0.1 x10^3/uL (0.0-0.2); BASO % 1 % (0-3); EOS % 0 % (0-3); HEMATOCRIT 25.2 % (36.0-47.0); HEMOGLOBIN 8.2 g/dL (12.0-15.5); LYMPH # 1.5 x10^3/uL (1.0-4.8); LYMPH % 11 % (24-48); MEAN CORPUSCULAR HEMOGLOBIN 32 pg (25-35); MEAN CORPUSCULAR HGB CONC 33 g/dL (31-37); MEAN CORPUSCULAR VOLUME 97 fL (79-100); MONO # 1.8 x10^3/uL (0.0-1.1); MONO % 13 % (0-9); NEUT # 10.7 x10^3/uL (1.8-7.7); NEUT % 76 % (31-73); PLATELET COUNT 337 x10^3/uL (140-400); RED BLOOD COUNT 2.59 x10^6/uL (3.50-5.40); RED CELL DISTRIBUTION WIDTH 16.4 % (11.5-14.5); WHITE BLOOD COUNT 14.1 x10^3/uL (4.0-11.0)
[2021-09-14 04:56] LABS: CALCIUM 7.9 mg/dL (8.5-10.1); CREATININE 1.1 mg/dL (0.6-1.0); GFR 47.6; MAGNESIUM 1.9 mg/dL (1.8-2.4); PHOSPHORUS 3.9 mg/dL (2.6-4.7); POTASSIUM 3.8 mmol/L (3.5-5.1)
[2021-09-14] MEDS: PIPERACILLIN/TAZOBACTAM 2.25 GM in IV NORMAL SALINE 50ML 50 ML IV SCH ×4 (05:45→23:27)
[2021-09-14] MEDS ORDERED: ENOXAPARIN 30 MG/0.3 ML SYRINGE. SQ SCH (09:00)
--- NOTE | 2021-09-14 09:04 | PDOC ---
Provider Note Date of Service: DATE: 09/14/21 TIME: 08:56 Provider Note IR NOTE 80 year old female with abdominal pain. Initially had low BP and tachycardia. Was found to have significant hemoperitoneum. Blood is seen in the RUQ adjacent to the liver, in the pelvis, and significant blood seen in the lesser sac, surrounding the pancreas and stomach. Initially on non contrast CT there was concern for a liver injury. However this was not seen on contrast enhanced exam. I felt the amount of hemoperitoneum between the two scans was similar. Her BP improved with fluids and she was given 1 unit of blood. It is unclear where the bleeding is coming from. In this setting angiography is typically low yield. She denies any trauma. There is no evidence of coagulopathy. She was managed medically overnight. HB initially responded to the unit of blood but has drifted down a bit this am. Will continue to follow. Justifications for Admission Other Justification Sepsis CECIL LEE MD Sep 14, 2021 09:04
[2021-09-14] MEDS: VANCOMYCIN PER PHARMACY MC PRN (09:44)
[2021-09-14] MEDS ORDERED: BRIM5DRO4 EACHEYE (10:22)
[2021-09-14] MEDS ORDERED: LATA2.5D2 RIGHTEYE (10:22)
[2021-09-14] MEDS ORDERED: HEPARIN for NUC MED 500 UNIT/5 ML DISP.SYRIN. IV ONE (10:30)
[2021-09-14] MEDS: BRIMONIDINE 0.2% OPHTH SOLUTION 5ML BOTTLE. OU SCH ×2 (11:23→20:18)
[2021-09-14] MEDS: POLYVINYL ALCOHOL 1.4% OPHTH SOLUTION 15ML BOTTLE. OU SCH ×2 (11:30→20:18)
--- NOTE | 2021-09-14 11:41 | PDOC ---
[employer] PROGRESS NOTE Date of Service DOS: DATE: 09/14/21 TIME: 11:38 Chief Complaint Chief Complaint Hemoperitoneum of undetermined etiology Sepsis Hemodynamic instability secondary to acute blood loss Acute right lower lobe pneumonia, possible gram negative organisms BRII due to vasomotor nephropathy ATN Lactic acidosis History of right hip replacement History of rectal tumor History of breast cancer History of Present Illness History of Present Illness 09/14/2021 Patient seen and examined in the ICU She appears quite weak ill and probably confused I called Dr. Salazar from the interventional radiology department He feels she does not have lacerated liver He feels she has some other source of bleeding into her hemoperitoneum I went ahead and ordered a tagged red blood cell scan to see if we can determine where the bleeding is coming from I also consulted general surgery Chart reviewed Discussed with RN Vitals/I&O Vitals/I&O: Vital Signs Date Time Temp Pulse Resp B/P (MAP) Pulse Ox O2 Delivery O2 Flow Rate FiO2 09/14/21 10:00 102 24 116/58 (77) 92 Room Air 09/14/21 08:00 98.5 98.5 I & O 09/13/21 09/13/21 09/14/21 15:00 23:00 07:00 Intake Total 2050 ml 50 ml Output Total 0 ml 75 ml Balance 2050 ml 50 ml -75 ml Physical Exam General: moderate distress, Other (Pleasantly confused) Heart: Other (Tachycardic) Lungs: Clear Abdomen: Other (Tender to palpation decreased bowel sounds) Extremities: No clubbing Skin: No rashes Labs Labs: Laboratory Tests Test 09/13/21 11:44 09/13/21 13:27 09/13/21 17:10 09/13/21 22:50 Coronavirus (COVID-19)(PCR) Not detected (NOT DETECTD) Influenza Type A Antigen Negative (NEGATIVE) Influenza Type B Antigen Negative (NEGATIVE) SARS-CoV-2 Antigen (Rapid) Negative (NEGATIVE) White Blood Count 19.7 x10^3/uL (4.0-11.0) 17.2 x10^3/uL (4.0-11.0) Red Blood Count 2.59 x10^6/uL (3.50-5.40) 3.00 x10^6/uL (3.50-5.40) Hemoglobin 8.5 g/dL (12.0-15.5) 9.5 g/dL (12.0-15.5) 8.5 g/dL (12.0-15.5) Hematocrit 25.7 % (36.0-47.0) 29.3 % (36.0-47.0) Mean Corpuscular Volume 99 fL (79-100) 98 fL (79-100) Mean Corpuscular Hemoglobin 33 pg (25-35) 32 pg (25-35) Mean Corpuscular Hemoglobin Concent 33 g/dL (31-37) 32 g/dL (31-37) Red Cell Distribution Width 14.4 % (11.5-14.5) 16.0 % (11.5-14.5) Platelet Count 409 x10^3/uL (140-400) 358 x10^3/uL (140-400) Neutrophils (%) (Auto) 87 % (31-73) Lymphocytes (%) (Auto) 8 % (24-48) Monocytes (%) (Auto) 6 % (0-9) Eosinophils (%) (Auto) 0 % (0-3) Basophils (%) (Auto) 0 % (0-3) Neutrophils # (Auto) 17.1 x10^3/uL (1.8-7.7) Lymphocytes # (Auto) 1.5 x10^3/uL (1.0-4.8) Monocytes # (Auto) 1.1 x10^3/uL (0.0-1.1) Eosinophils # (Auto) 0.0 x10^3/uL (0.0-0.7) Basophils # (Auto) 0.0 x10^3/uL (0.0-0.2) Segmented Neutrophils % 79 % (35-66) Band Neutrophils % 11 % (0-9) Lymphocytes % 5 % (24-48) Monocytes % 5 % (0-10) Platelet Estimate Increased (ADEQUATE) Basophilic Stippling Present Prothrombin Time 14.3 SEC (11.7-14.0) Prothromb Time International Ratio 1.1 (0.8-1.1) Activated Partial Thromboplast Time 28 SEC (24-38) Lactic Acid Level 1.6 mmol/L (0.4-2.0) Test 09/14/21 04:00 White Blood Count 14.1 x10^3/uL (4.0-11.0) Red Blood Count 2.59 x10^6/uL (3.50-5.40) Hemoglobin 8.2 g/dL (12.0-15.5) Hematocrit 25.2 % (36.0-47.0) Mean Corpuscular Volume 97 fL (79-100) Mean Corpuscular Hemoglobin 32 pg (25-35) Mean Corpuscular Hemoglobin Concent 33 g/dL (31-37) Red Cell Distribution Width 16.4 % (11.5-14.5) Platelet Count 337 x10^3/uL (140-400) Neutrophils (%) (Auto) 76 % (31-73) Lymphocytes (%) (Auto) 11 % (24-48) Monocytes (%) (Auto) 13 % (0-9) Eosinophils (%) (Auto) 0 % (0-3) Basophils (%) (Auto) 1 % (0-3) Neutrophils # (Auto) 10.7 x10^3/uL (1.8-7.7) Lymphocytes # (Auto) 1.5 x10^3/uL (1.0-4.8) Monocytes # (Auto) 1.8 x10^3/uL (0.0-1.1) Eosinophils # (Auto) 0.0 x10^3/uL (0.0-0.7) Basophils # (Auto) 0.1 x10^3/uL (0.0-0.2) Sodium Level 146 mmol/L (136-145) Potassium Level 3.8 mmol/L (3.5-5.1) Chloride Level 113 mmol/L (98-107) Carbon Dioxide Level 23 mmol/L (21-32) Anion Gap 10 (6-14) Blood Urea Nitrogen 29 mg/dL (7-20) Creatinine 1.1 mg/dL (0.6-1.0) Estimated GFR (Cockcroft-Gault) 47.6 Glucose Level 116 mg/dL (70-99) Calcium Level 7.9 mg/dL (8.5-10.1) Phosphorus Level 3.9 mg/dL (2.6-4.7) Magnesium Level 1.9 mg/dL (1.8-2.4) Assessment and Plan Assessmemt and Plan Problems Medical Problems: (1) Anemia Status: Acute (2) Hemoperitoneum Status: Acute (3) Lactic acidosis Status: Acute (4) Nausea and vomiting Status: Acute (5) Right lower lobe pneumonia Status: Acute (6) Right sided abdominal pain Status: Acute (7) Sepsis Status: Acute Hemoperitoneum of undetermined etiology Sepsis Hemodynamic instability secondary to acute blood loss Acute right lower lobe pneumonia, possible gram negative organisms BRII due to vasomotor nephropathy ATN Lactic acidosis History of right hip replacement History of rectal tumor History of breast cancer Plan I ordered a tagged red blood cell scan to try to determine where this blood is coming from Consult general surgery ICU monitoring IV antibiotics Appreciate Dr. Dias input Home meds when possible but she is n.p.o. for now IV fluids DVT prophylaxis Full code Trend labs Prognosis guarded CC time 32 Comment Review of Relevant I have reviewed the following items essence (where applicable) has been applied. Medications: Current Medications Medications (Trade) Dose Ordered Sig/Kostas Route PRN Reason Start Time Stop Time Status Last Admin Dose Admin Sodium Chloride 1,000 ml @ 100 mls/hr Q10H IV 09/13/21 12:15 09/13/21 23:49 Vancomycin HCl (Vanco Per Pharmacy) 1 each PRN DAILY PRN MC SEE COMMENTS 09/13/21 12:15 09/14/21 09:44 Famotidine (Pepcid) 20 mg QHS PO 09/13/21 21:00 09/13/21 20:48 Vancomycin HCl 1.25 gm/Sodium Chloride 250 ml @ 166.667 mls/hr 1X ONCE IV 09/13/21 13:30 09/13/21 14:59 DC 09/13/21 16:54 Iohexol (Omnipaque 300 Mg/ml) 60 ml 1X ONCE IV 09/13/21 13:45 09/13/21 13:46 DC 09/13/21 14:05 Piperacillin Sod/ Tazobactam Sod 2.25 gm/Sodium Chloride 50 ml @ 100 mls/hr Q6HRS IV 09/13/21 18:00 09/14/21 05:45 Fentanyl Citrate (Fentanyl 2ml Vial) 50 mcg 1X ONCE IVP 09/13/21 15:15 09/13/21 15:16 DC 09/13/21 15:43 Brimonidine Tartrate (Alphagan) 1 drop BID OU 09/14/21 11:00 09/14/21 11:23 Justifications for Admission Other Justification Sepsis SUMAN ELIZALDE III DO Sep 14, 2021 11:41
--- NOTE | 2021-09-14 13:04 | RAD ---
EXAM: Nuclear GI bleed scan. HISTORY: Hemoperitoneum. TECHNIQUE: Sonographic imaging of the abdomen and pelvis was performed following the intravenous admi nistration of 30 mCi technetium 99m tagged red blood cells. COMPARISON: CT obtained one day prior. FINDINGS: There is no evidence of active gastrointestinal hemorrhage. There is expected tracer activi ty within the visceral and vascular structures. IMPRESSION: No scintigraphic evidence of active gastrointestinal hemorrhage. Electronically signed by: Mindy Squires MD (09/14/2021 1:02 PM) [id number]
--- NOTE | 2021-09-14 13:59 | PDOC2 ---
CONSULT Date of Consult Date of Consult DATE: 09/14/21 TIME: 13:55 Reason for Consult Reason for Consult: Hemoperitoneum Referring Physician Referring Physician: Mohan Identification/Chief Complaint Chief Complaint Abdominal pain and dizziness Source Source: Chart review, Patient History of Present Illness Reason for Visit: 80-year-old female was brought into the emergency department further evaluation for abdominal pain and dizziness. On work-up she was found to have a hemoperitoneum on CT scan initially thought to be a liver laceration although s he denies any trauma or history of liver disease. She remained hemodynamically stable. Today she is resting comfortably in bed denies any abdominal pain did have some dizziness when sitting up. Past Medical History Cardiovascular: No pertinent hx Pulmonary: No pertinent hx GI: No pertinent hx Heme/Onc: No pertinent hx Hepatobiliary: No pertinent hx Psych: No pertinent hx Rheumatologic: No pertinent hx Infectious disease: No pertinent hx ENT: No pertinent hx Renal/: No pertinent hx Endocrine: No pertinent hx Dermatology: No pertinent hx Past Surgical History Past Surgical History: No pertinent history Family History Family History: No Significant Social History No ALCOHOL: none Drugs: None Lives: with Family Current Problem List Problem List Problems Medical Problems: (1) Anemia Status: Acute (2) Hemoperitoneum Status: Acute (3) Lactic acidosis Status: Acute (4) Nausea and vomiting Status: Acute (5) Right lower lobe pneumonia Status: Acute (6) Right sided abdominal pain Status: Acute (7) Sepsis Status: Acute Current Medications Current Medications Current Medications Sodium Chloride 1,000 ml @ 1,000 mls/hr 1X ONCE IV Last administered on 09/13/21at 09:45; Start 09/13/21 at 09:45; Stop 09/13/21 at 10:44; Status DC Piperacillin Sod/ Tazobactam Sod 3.375 gm/Sodium Chloride 50 ml @ 100 mls/hr 1X ONCE IV Last administered on 09/13/21at 10:22; Start 09/13/21 at 10:00; Stop 09/13/21 at 10:29; Status DC Sodium Chloride 1,000 ml @ 1,000 mls/hr 1X ONCE IV Last administered on 09/13/21at 10:23; Start 09/13/21 at 10:15; Stop 09/13/21 at 11:14; Status DC Fentanyl Citrate (Fentanyl 2ml Vial) 50 mcg 1X ONCE IVP Last administered on 09/13/21at 11:11; Start 09/13/21 at 11:00; Stop 09/13/21 at 11:01; Status DC Ondansetron HCl (Zofran) 4 mg 1X ONCE IVP Last administered on 09/13/21at 11:09; Start 09/13/21 at 11:00; Stop 09/13/21 at 11:01; Status DC Sennosides (Senna) 17.2 mg PRN BID PRN PO CONSTIPATION; Start 09/13/21 at 12:15 Docusate Sodium (Colace) 100 mg PRN DAILY PRN PO HARD STOOLS; Start 09/13/21 at 12:15 Ondansetron HCl (Zofran) 4 mg PRN Q6HRS PRN IVP NAUSEA/VOMITING, 1st CHOICE; Start 09/13/21 at 12:15 Dextrose (Dextrose 50%-Water Syringe) 12.5 gm PRN Q15MIN PRN IV SEE COMMENTS; Start 09/13/21 at 12:15 Sodium Chloride 1,000 ml @ 100 mls/hr Q10H IV Last administered on 09/13/21at 23:49; Start 09/13/21 at 12:15 Acetaminophen (Tylenol) 650 mg PRN Q4HRS PRN PO TEMP OVER 100.4F OR MILD PAIN; Start 09/13/21 at 12:15 Lorazepam (Ativan) 0.5 mg PRN Q6HRS PRN PO ANXIETY / AGITATION; Start 09/13/21 at 12:15 Lorazepam (Ativan Inj) 0.25 mg PRN Q4HRS PRN IV ANXIETY / AGITATION; Start 09/13/21 at 12:15 Vancomycin HCl (Vanco Per Pharmacy) 1 each PRN DAILY PRN MC SEE COMMENTS Last administered on 09/14/21at 09:44; Start 09/13/21 at 12:15 Enoxaparin Sodium (Lovenox 30mg Syringe) 30 mg DAILY SQ ; Start 09/14/21 at 09:00; Stop 09/13/21 at 13:42; Status DC Famotidine (Pepcid) 20 mg QHS PO Last administered on 09/13/21at 20:48; Start 09/13/21 at 21:00 Prochlorperazine Edisylate (Compazine) 10 mg PRN Q6HRS PRN IV NAUSEA/VOMITING, 2nd CHOICE; Start 09/13/21 at 12:15 Diphenhydramine HCl (Benadryl) 25 mg PRN Q6HRS PRN IVP ITCHING; Start 09/13/21 at 12:15 Diphenhydramine HCl (Benadryl) 25 mg PRN Q6HRS PRN PO ITCHING; Start 09/13/21 at 12:15 Diphenhydramine HCl (Benadryl) 25 mg PRN QHS PRN PO INSOMNIA, 1st CHOICE; Start 09/13/21 at 12:15 Zolpidem Tartrate (Ambien) 2.5 mg PRN QHS PRN PO INSOMNIA, 2nd CHOICE; Start 09/13/21 at 12:15 Vancomycin HCl 1.25 gm/Sodium Chloride 250 ml @ 166.667 mls/hr 1X ONCE IV Last administered on 09/13/21at 16:54; Start 09/13/21 at 13:30; Stop 09/13/21 at 14:59; Status DC Iohexol (Omnipaque 300 Mg/ml) 60 ml 1X ONCE IV Last administered on 09/13/21at 14:05; Start 09/13/21 at 13:45; Stop 09/13/21 at 13:46; Status DC Info (CONTRAST GIVEN -- Rx MONITORING) 1 each PRN DAILY PRN MC SEE COMMENTS; Start 09/13/21 at 13:45; Stop 09/15/21 at 13:44 Piperacillin Sod/ Tazobactam Sod 2.25 gm/Sodium Chloride 50 ml @ 100 mls/hr Q6HRS IV Last administered on 09/14/21at 13:27; Start 09/13/21 at 18:00 Fentanyl Citrate (Fentanyl 2ml Vial) 50 mcg 1X ONCE IVP Last administered on 09/13/21at 15:43; Start 09/13/21 at 15:15; Stop 09/13/21 at 15:16; Status DC Ondansetron HCl (Zofran) 4 mg 1X ONCE IVP ; Start 09/13/21 at 15:15; Stop 09/13/21 at 15:16; Status DC Vancomycin HCl 750 mg/Sodium Chloride 250 ml @ 250 mls/hr Q24H IV ; Start 09/14/21 at 17:00 Vancomycin HCl (Vancomycin Trough Level) 1 each 1X ONCE MC ; Start 09/15/21 at 16:30; Stop 09/15/21 at 16:31 Brimonidine Tartrate (Alphagan) 1 drop BID OU Last administered on 09/14/21at 11:23; Start 09/14/21 at 11:00 Latanoprost (Xalatan) 1 drop QHS OD ; Start 09/14/21 at 21:00 Heparin Sodium (Porcine) (HEPARIN for NUC MED) 100 unit 1X ONCE IV ; Start 09/14/21 at 10:30; Stop 09/14/21 at 10:34; Status DC Glycerin/ Hypromellose/ Polyethylene (Artificial Tears) 1 drop BID OU ; Start 09/14/21 at 11:30 Active Scripts Active Reported Brimonidine Tartrate 5 Ml Drops 1 Drop EACHEYE BID Xalatan (Latanoprost) 2.5 Ml Drops 1 Drop RIGHTEYE QHS Allergies Allergies: Coded Allergies: No Known Drug Allergies (Unverified , 09/13/21) ROS General: No: Chills, Night Sweats, Fatigue, Malaise, Appetite, Other PSYCHOLOGICAL ROS: No: Anxiety, Behavioral Disorder, Concentration difficultie, Decreased libido, Depression, Disorientation, Hallucinations, Hostility, Irritablity, Memory difficulties, Mood Swings, Obsessive thoughts, Physical abuse, Sexual abuse, Sleep disturbances, Suicidal ideation, Other Eyes: No Blurry vision, No Decreased vision, No Double vision, No Dry eyes, No Excessive tearing, No Eye Pain, No Itchy Eyes, No Loss of vision, No Photophobia, No Scotomata, No Uses contacts, No Uses glasses, No Other HEENT: No: Heacaches, Visual Changes, Hearing change, Nasal congestion, Nasal discharge, Oral lesions, Sinus pain, Sore Throat, Epistaxis, Sneezing, Snoring, Tinnitus, Vertigo, Vocal changes, Other ALLERGY AND IMMUNOLOGY: No: Hives, Insect Bite Sensitivity, Itchy/Watery Eyes, Nasal Congestion, Post Nasal Drip, Seasonal Allergies, Other Hematological and Lymphatic: No: Bleeding Problems, Blood Clots, Blood Transfusions, Brusing, Night Sweats, Pallor, Swollen Lymph Nodes, Other ENDOCRINE: No: Breast Changes, Galactorrhea, Hair Pattern Changes, Hot Flashes, Malaise/lethargy, Mood Swings, Palpitations, Polydipsia/polyuria, Skin Changes, Temperature Intolerance, Unexpected Weight Changes, Other Breast: No New/Changing Breast Lumps, No Nipple changes, No Nipple discharge, No Other Respiratory: No: Cough, Hemoptysis, Orthopnea, Pleuritic Pain, Shortness of breath, SOB with excertion, Sputum Changes, Stridor, Tachypnea, Wheezing, Other Cardiovascular: No Chest Pain, No Palpitations, No Orthopnea, No Paroxysmal Noc. Dyspnea, No Edema, No Lt Headedness, No Other Gastrointestinal: Yes Abdominal Pain Genitourinary: No Dysuria, No Frequency, No Incontinence, No Hematuria, No Retention, No Discharge, No Urgency, No Pain, No Flank Pain, No Other, No , No , No , No , No , No , No Musculoskeletal: No Gait Disturbance, No Joint Pain, No Joint Stiffness, No Joint Swelling, No Muscle Pain, No Muscular Weakness, No Pain In:, No Swelling In:, No Other Neurological: Yes Dizziness Skin: No Dry Skin, No Eczema, No Hair Changes, No Lumps, No Mole Changes, No Mottling, No Nail Changes, No Pruritus, No Rash, No Skin Lesion Changes, No Other, No Acne Physical Exam General: Alert, Oriented X3, Cooperative, No acute distress HEENT: Atraumatic, PERRLA, EOMI Lungs: Clear to auscultation, Normal air movement Heart: Regular rate, No murmurs Abdomen: Normal bowel sounds, Soft, Other (Mildly tender to palpation diffusely no peritoneal sign) Extremities: No edema Skin: No significant lesion Neuro: Normal speech Psych/Mental Status: Mental status NL Vitals VITALS Vital Signs Date Time Temp Pulse Resp B/P (MAP) Pulse Ox O2 Delivery O2 Flow Rate FiO2 09/14/21 12:00 106 30 131/67 (88) 92 Room Air 09/14/21 08:00 98.5 98.5 Labs Labs Laboratory Tests Test 09/13/21 09:43 09/13/21 10:17 09/13/21 11:44 09/13/21 13:27 White Blood Count 21.3 x10^3/uL (4.0-11.0) 19.7 x10^3/uL (4.0-11.0) Red Blood Count 2.89 x10^6/uL (3.50-5.40) 2.59 x10^6/uL (3.50-5.40) Hemoglobin 9.2 g/dL (12.0-15.5) 8.5 g/dL (12.0-15.5) Hematocrit 28.6 % (36.0-47.0) 25.7 % (36.0-47.0) Mean Corpuscular Volume 99 fL (79-100) 99 fL (79-100) Mean Corpuscular Hemoglobin 32 pg (25-35) 33 pg (25-35) Mean Corpuscular Hemoglobin Concent 32 g/dL (31-37) 33 g/dL (31-37) Red Cell Distribution Width 14.5 % (11.5-14.5) 14.4 % (11.5-14.5) Platelet Count 468 x10^3/uL (140-400) 409 x10^3/uL (140-400) Neutrophils (%) (Auto) 89 % (31-73) 87 % (31-73) Lymphocytes (%) (Auto) 6 % (24-48) 8 % (24-48) Monocytes (%) (Auto) 5 % (0-9) 6 % (0-9) Eosinophils (%) (Auto) 0 % (0-3) 0 % (0-3) Basophils (%) (Auto) 0 % (0-3) 0 % (0-3) Neutrophils # (Auto) 18.9 x10^3/uL (1.8-7.7) 17.1 x10^3/uL (1.8-7.7) Lymphocytes # (Auto) 1.3 x10^3/uL (1.0-4.8) 1.5 x10^3/uL (1.0-4.8) Monocytes # (Auto) 1.1 x10^3/uL (0.0-1.1) 1.1 x10^3/uL (0.0-1.1) Eosinophils # (Auto) 0.0 x10^3/uL (0.0-0.7) 0.0 x10^3/uL (0.0-0.7) Basophils # (Auto) 0.1 x10^3/uL (0.0-0.2) 0.0 x10^3/uL (0.0-0.2) Segmented Neutrophils % 90 % (35-66) 79 % (35-66) Band Neutrophils % 3 % (0-9) 11 % (0-9) Lymphocytes % 6 % (24-48) 5 % (24-48) Monocytes % 1 % (0-10) 5 % (0-10) Platelet Estimate Adequate (ADEQUATE) Increased (ADEQUATE) Sodium Level 143 mmol/L (136-145) Potassium Level 4.2 mmol/L (3.5-5.1) Chloride Level 105 mmol/L (98-107) Carbon Dioxide Level 24 mmol/L (21-32) Anion Gap 14 (6-14) Blood Urea Nitrogen 25 mg/dL (7-20) Creatinine 1.5 mg/dL (0.6-1.0) Estimated GFR (Cockcroft-Gault) 33.2 BUN/Creatinine Ratio 17 (6-20) Glucose Level 178 mg/dL (70-99) Lactic Acid Level 3.9 mmol/L (0.4-2.0) 1.6 mmol/L (0.4-2.0) Calcium Level 8.1 mg/dL (8.5-10.1) Phosphorus Level 4.5 mg/dL (2.6-4.7) Magnesium Level 2.0 mg/dL (1.8-2.4) Total Bilirubin 1.1 mg/dL (0.2-1.0) Aspartate Amino Transf (AST/SGOT) 12 U/L (15-37) Alanine Aminotransferase (ALT/SGPT) 15 U/L (14-59) Alkaline Phosphatase 69 U/L (46-116) Troponin I High Sensitivity 16 ng/L (4-50) DI-Noz-D-Type Natriuretic Peptide 970 pg/mL (0-449) Total Protein 6.0 g/dL (6.4-8.2) Albumin 2.7 g/dL (3.4-5.0) Albumin/Globulin Ratio 0.8 (1.0-1.7) Lipase 63 U/L (73-393) Procalcitonin 0.88 ng/mL (0.00-0.10) Urine Collection Type U cath Urine Color Brianna Urine Clarity Clear Urine pH 5.5 (<5.0-8.0) Urine Specific [place] 1.020 (1.000-1.030) Urine Protein 100 mg/dL (NEG-TRACE) Urine Glucose (UA) Negative mg/dL (NEG) Urine Ketones (Stick) 15 mg/dL (NEG) Urine Blood Negative (NEG) Urine Nitrite Negative (NEG) Urine Bilirubin Negative (NEG) Urine Urobilinogen Dipstick 0.2 mg/dL (0.2 mg/dL) Urine Leukocyte Esterase Negative (NEG) Urine RBC 0 /HPF (0-2) Urine WBC 5-10 /HPF (0-4) Urine Squamous Epithelial Cells Few /LPF Urine Bacteria 0 /HPF (0-FEW) Urine Mucus Marked /LPF Coronavirus (COVID-19)(PCR) Not detected (NOT DETECTD) Influenza Type A Antigen Negative (NEGATIVE) Influenza Type B Antigen Negative (NEGATIVE) SARS-CoV-2 Antigen (Rapid) Negative (NEGATIVE) Basophilic Stippling Present Prothrombin Time 14.3 SEC (11.7-14.0) Prothromb Time International Ratio 1.1 (0.8-1.1) Activated Partial Thromboplast Time 28 SEC (24-38) Test 09/13/21 17:10 09/13/21 22:50 09/14/21 04:00 White Blood Count 17.2 x10^3/uL (4.0-11.0) 14.1 x10^3/uL (4.0-11.0) Red Blood Count 3.00 x10^6/uL (3.50-5.40) 2.59 x10^6/uL (3.50-5.40) Hemoglobin 9.5 g/dL (12.0-15.5) 8.5 g/dL (12.0-15.5) 8.2 g/dL (12.0-15.5) Hematocrit 29.3 % (36.0-47.0) 25.2 % (36.0-47.0) Mean Corpuscular Volume 98 fL (79-100) 97 fL (79-100) Mean Corpuscular Hemoglobin 32 pg (25-35) 32 pg (25-35) Mean Corpuscular Hemoglobin Concent 32 g/dL (31-37) 33 g/dL (31-37) Red Cell Distribution Width 16.0 % (11.5-14.5) 16.4 % (11.5-14.5) Platelet Count 358 x10^3/uL (140-400) 337 x10^3/uL (140-400) Neutrophils (%) (Auto) 76 % (31-73) Lymphocytes (%) (Auto) 11 % (24-48) Monocytes (%) (Auto) 13 % (0-9) Eosinophils (%) (Auto) 0 % (0-3) Basophils (%) (Auto) 1 % (0-3) Neutrophils # (Auto) 10.7 x10^3/uL (1.8-7.7) Lymphocytes # (Auto) 1.5 x10^3/uL (1.0-4.8) Monocytes # (Auto) 1.8 x10^3/uL (0.0-1.1) Eosinophils # (Auto) 0.0 x10^3/uL (0.0-0.7) Basophils # (Auto) 0.1 x10^3/uL (0.0-0.2) Sodium Level 146 mmol/L (136-145) Potassium Level 3.8 mmol/L (3.5-5.1) Chloride Level 113 mmol/L (98-107) Carbon Dioxide Level 23 mmol/L (21-32) Anion Gap 10 (6-14) Blood Urea Nitrogen 29 mg/dL (7-20) Creatinine 1.1 mg/dL (0.6-1.0) Estimated GFR (Cockcroft-Gault) 47.6 Glucose Level 116 mg/dL (70-99) Calcium Level 7.9 mg/dL (8.5-10.1) Phosphorus Level 3.9 mg/dL (2.6-4.7) Magnesium Level 1.9 mg/dL (1.8-2.4) Laboratory Tests Test 09/13/21 17:10 09/13/21 22:50 09/14/21 04:00 White Blood Count 17.2 x10^3/uL (4.0-11.0) 14.1 x10^3/uL (4.0-11.0) Red Blood Count 3.00 x10^6/uL (3.50-5.40) 2.59 x10^6/uL (3.50-5.40) Hemoglobin 9.5 g/dL (12.0-15.5) 8.5 g/dL (12.0-15.5) 8.2 g/dL (12.0-15.5) Hematocrit 29.3 % (36.0-47.0) 25.2 % (36.0-47.0) Mean Corpuscular Volume 98 fL (79-100) 97 fL (79-100) Mean Corpuscular Hemoglobin 32 pg (25-35) 32 pg (25-35) Mean Corpuscular Hemoglobin Concent 32 g/dL (31-37) 33 g/dL (31-37) Red Cell Distribution Width 16.0 % (11.5-14.5) 16.4 % (11.5-14.5) Platelet Count 358 x10^3/uL (140-400) 337 x10^3/uL (140-400) Neutrophils (%) (Auto) 76 % (31-73) Lymphocytes (%) (Auto) 11 % (24-48) Monocytes (%) (Auto) 13 % (0-9) Eosinophils (%) (Auto) 0 % (0-3) Basophils (%) (Auto) 1 % (0-3) Neutrophils # (Auto) 10.7 x10^3/uL (1.8-7.7) Lymphocytes # (Auto) 1.5 x10^3/uL (1.0-4.8) Monocytes # (Auto) 1.8 x10^3/uL (0.0-1.1) Eosinophils # (Auto) 0.0 x10^3/uL (0.0-0.7) Basophils # (Auto) 0.1 x10^3/uL (0.0-0.2) Sodium Level 146 mmol/L (136-145) Potassium Level 3.8 mmol/L (3.5-5.1) Chloride Level 113 mmol/L (98-107) Carbon Dioxide Level 23 mmol/L (21-32) Anion Gap 10 (6-14) Blood Urea Nitrogen 29 mg/dL (7-20) Creatinine 1.1 mg/dL (0.6-1.0) Estimated GFR (Cockcroft-Gault) 47.6 Glucose Level 116 mg/dL (70-99) Calcium Level 7.9 mg/dL (8.5-10.1) Phosphorus Level 3.9 mg/dL (2.6-4.7) Magnesium Level 1.9 mg/dL (1.8-2.4) Assessment/Plan Assessment/Plan Hemodynamically remained stable H&H stable imaging does not show any acute extravasation no source for the bleed. At this point no surgical plans would monitor. Okay to advance GA Hanson MD Sep 14, 2021 13:59
--- NOTE | 2021-09-14 14:33 | NUR ---
SS following for discharge planning. SS reviewed pt chart and discussed with pt RN. Pt is from home and is currently on room air. Surgery and Dr. Talbert consulted. Pt on IV Vancomycin and IV Zosyn. SS will continue to follow for discharge planning.
[2021-09-14] MEDS: IV NORMAL SALINE 1000ML BAG 1,000 ML IV SCH ×2 (16:38→19:13)
[2021-09-14] MEDS ORDERED: VANCOMYCIN 750 MG in IV NORMAL SALINE 250ML 250 ML IV SCH (17:00)
--- NOTE | 2021-09-14 17:53 | NUR ---
Report given to RAFI Hill. Pt transferred by bed with RN to 5S. Pt transferred appropriately with family at bedside. 5S RN and [employer] STATION OPERATOR present upon entering room. Transfer of care given to 5S RN.
--- NOTE | 2021-09-14 17:59 | NUR ---
Pt arrived on unit at approx 1735 by bed via ICU staff. Pt's daughters at bedside at time of transfer. Pt denies pain. POC/orders reviewed, tele applied. Will assume care.
[2021-09-14] MEDS ORDERED: NETA2.5D EACHEYE (18:12)
[2021-09-14] MEDS ORDERED: LATA5DRO EACHEYE (18:14)
[2021-09-14] MEDS: FAMOTIDINE 20 MG TABLET. PO SCH (20:18)
[2021-09-14] MEDS: LATANOPROST 0.005% OPHTH SOLUTION 2.5ML BOTTLE. OD SCH (20:18)
[2021-09-14] MEDS ORDERED: DEXAMETHASONE 0.1% OPHTH SOLUTION 5ML BOTTLE. OS SCH (22:00)
[2021-09-14] MEDS: DEXAMETHASONE 0.1% OPHTH SOLUTION 5ML BOTTLE. OD SCH (23:27)
[2021-09-15 03:21] VITALS: BP 137/72
[2021-09-15] MEDS: IV NORMAL SALINE 1000ML BAG 1,000 ML IV SCH (04:26)
[2021-09-15] MEDS: DEXAMETHASONE 0.1% OPHTH SOLUTION 5ML BOTTLE. OD SCH ×6 (04:27→20:34)
[2021-09-15] MEDS: PIPERACILLIN/TAZOBACTAM 2.25 GM in IV NORMAL SALINE 50ML 50 ML IV SCH ×4 (04:27→22:57)
[2021-09-15 07:00] VITALS: BP 137/70
[2021-09-15 07:28] LABS: BASO # 0.1 x10^3/uL (0.0-0.2); BASO % 1 % (0-3); EOS # 0.3 x10^3/uL (0.0-0.7); EOS % 2 % (0-3); LYMPH # 1.1 x10^3/uL (1.0-4.8); LYMPH % 10 % (24-48); MEAN CORPUSCULAR HEMOGLOBIN 32 pg (25-35); MEAN CORPUSCULAR HGB CONC 33 g/dL (31-37); MEAN CORPUSCULAR VOLUME 97 fL (79-100); MONO # 1.3 x10^3/uL (0.0-1.1); MONO % 12 % (0-9); NEUT # 8.2 x10^3/uL (1.8-7.7); NEUT % 75 % (31-73); PLATELET COUNT 322 x10^3/uL (140-400); RED BLOOD COUNT 2.17 x10^6/uL (3.50-5.40); RED CELL DISTRIBUTION WIDTH 15.9 % (11.5-14.5)
[2021-09-15 07:30] LABS: CALCIUM 7.8 mg/dL (8.5-10.1); CREATININE 0.7 mg/dL (0.6-1.0); GFR 80.1; MAGNESIUM 1.9 mg/dL (1.8-2.4)
--- NOTE | 2021-09-15 08:13 | PDOC ---
SURGICAL PROGRESS NOTE DATE: 09/15/21 TIME: 08:10 Subjective Patient states she is feeling short of breath this morning did have a bowel movement yesterday denies any abdominal pain Vital Signs Vital Signs Date Time Temp Pulse Resp B/P (MAP) Pulse Ox O2 Delivery O2 Flow Rate FiO2 09/15/21 03:21 98.7 114 20 137/72 (93) 92 Room Air 98.7 I&O Intake and Output 09/15/21 07:00 Intake Total 900 ml Output Total 250 ml Balance 650 ml Intake Oral 600 ml IV Total 300 ml Output Urine Total 250 ml # Voids 4 # Bowel Movements 1 PATIENT HAS A PEREIRA: No General: Alert, Oriented X3, Cooperative, No acute distress, Other (Does not appear to be a little short of breath O2 saturation 94% on room air) Abdomen: Normal bowel sounds, Soft, No tenderness Labs Laboratory Tests Test 09/13/21 09:43 09/13/21 10:17 09/13/21 11:44 09/13/21 13:27 White Blood Count 21.3 x10^3/uL (4.0-11.0) 19.7 x10^3/uL (4.0-11.0) Red Blood Count 2.89 x10^6/uL (3.50-5.40) 2.59 x10^6/uL (3.50-5.40) Hemoglobin 9.2 g/dL (12.0-15.5) 8.5 g/dL (12.0-15.5) Hematocrit 28.6 % (36.0-47.0) 25.7 % (36.0-47.0) Mean Corpuscular Volume 99 fL (79-100) 99 fL (79-100) Mean Corpuscular Hemoglobin 32 pg (25-35) 33 pg (25-35) Mean Corpuscular Hemoglobin Concent 32 g/dL (31-37) 33 g/dL (31-37) Red Cell Distribution Width 14.5 % (11.5-14.5) 14.4 % (11.5-14.5) Platelet Count 468 x10^3/uL (140-400) 409 x10^3/uL (140-400) Neutrophils (%) (Auto) 89 % (31-73) 87 % (31-73) Lymphocytes (%) (Auto) 6 % (24-48) 8 % (24-48) Monocytes (%) (Auto) 5 % (0-9) 6 % (0-9) Eosinophils (%) (Auto) 0 % (0-3) 0 % (0-3) Basophils (%) (Auto) 0 % (0-3) 0 % (0-3) Neutrophils # (Auto) 18.9 x10^3/uL (1.8-7.7) 17.1 x10^3/uL (1.8-7.7) Lymphocytes # (Auto) 1.3 x10^3/uL (1.0-4.8) 1.5 x10^3/uL (1.0-4.8) Monocytes # (Auto) 1.1 x10^3/uL (0.0-1.1) 1.1 x10^3/uL (0.0-1.1) Eosinophils # (Auto) 0.0 x10^3/uL (0.0-0.7) 0.0 x10^3/uL (0.0-0.7) Basophils # (Auto) 0.1 x10^3/uL (0.0-0.2) 0.0 x10^3/uL (0.0-0.2) Segmented Neutrophils % 90 % (35-66) 79 % (35-66) Band Neutrophils % 3 % (0-9) 11 % (0-9) Lymphocytes % 6 % (24-48) 5 % (24-48) Monocytes % 1 % (0-10) 5 % (0-10) Platelet Estimate Adequate (ADEQUATE) Increased (ADEQUATE) Sodium Level 143 mmol/L (136-145) Potassium Level 4.2 mmol/L (3.5-5.1) Chloride Level 105 mmol/L (98-107) Carbon Dioxide Level 24 mmol/L (21-32) Anion Gap 14 (6-14) Blood Urea Nitrogen 25 mg/dL (7-20) Creatinine 1.5 mg/dL (0.6-1.0) Estimated GFR (Cockcroft-Gault) 33.2 BUN/Creatinine Ratio 17 (6-20) Glucose Level 178 mg/dL (70-99) Lactic Acid Level 3.9 mmol/L (0.4-2.0) 1.6 mmol/L (0.4-2.0) Calcium Level 8.1 mg/dL (8.5-10.1) Phosphorus Level 4.5 mg/dL (2.6-4.7) Magnesium Level 2.0 mg/dL (1.8-2.4) Total Bilirubin 1.1 mg/dL (0.2-1.0) Aspartate Amino Transf (AST/SGOT) 12 U/L (15-37) Alanine Aminotransferase (ALT/SGPT) 15 U/L (14-59) Alkaline Phosphatase 69 U/L (46-116) Troponin I High Sensitivity 16 ng/L (4-50) GG-Ahs-Z-Type Natriuretic Peptide 970 pg/mL (0-449) Total Protein 6.0 g/dL (6.4-8.2) Albumin 2.7 g/dL (3.4-5.0) Albumin/Globulin Ratio 0.8 (1.0-1.7) Lipase 63 U/L (73-393) Procalcitonin 0.88 ng/mL (0.00-0.10) Urine Collection Type U cath Urine Color Brianna Urine Clarity Clear Urine pH 5.5 (<5.0-8.0) Urine Specific [place] 1.020 (1.000-1.030) Urine Protein 100 mg/dL (NEG-TRACE) Urine Glucose (UA) Negative mg/dL (NEG) Urine Ketones (Stick) 15 mg/dL (NEG) Urine Blood Negative (NEG) Urine Nitrite Negative (NEG) Urine Bilirubin Negative (NEG) Urine Urobilinogen Dipstick 0.2 mg/dL (0.2 mg/dL) Urine Leukocyte Esterase Negative (NEG) Urine RBC 0 /HPF (0-2) Urine WBC 5-10 /HPF (0-4) Urine Squamous Epithelial Cells Few /LPF Urine Bacteria 0 /HPF (0-FEW) Urine Mucus Marked /LPF Coronavirus (COVID-19)(PCR) Not detected (NOT DETECTD) Influenza Type A Antigen Negative (NEGATIVE) Influenza Type B Antigen Negative (NEGATIVE) SARS-CoV-2 Antigen (Rapid) Negative (NEGATIVE) Basophilic Stippling Present Prothrombin Time 14.3 SEC (11.7-14.0) Prothromb Time International Ratio 1.1 (0.8-1.1) Activated Partial Thromboplast Time 28 SEC (24-38) Test 09/13/21 17:10 09/13/21 22:50 09/14/21 04:00 09/15/21 05:35 White Blood Count 17.2 x10^3/uL (4.0-11.0) 14.1 x10^3/uL (4.0-11.0) 11.0 x10^3/uL (4.0-11.0) Red Blood Count 3.00 x10^6/uL (3.50-5.40) 2.59 x10^6/uL (3.50-5.40) 2.17 x10^6/uL (3.50-5.40) Hemoglobin 9.5 g/dL (12.0-15.5) 8.5 g/dL (12.0-15.5) 8.2 g/dL (12.0-15.5) 7.0 g/dL (12.0-15.5) Hematocrit 29.3 % (36.0-47.0) 25.2 % (36.0-47.0) 21.0 % (36.0-47.0) Mean Corpuscular Volume 98 fL (79-100) 97 fL (79-100) 97 fL (79-100) Mean Corpuscular Hemoglobin 32 pg (25-35) 32 pg (25-35) 32 pg (25-35) Mean Corpuscular Hemoglobin Concent 32 g/dL (31-37) 33 g/dL (31-37) 33 g/dL (31-37) Red Cell Distribution Width 16.0 % (11.5-14.5) 16.4 % (11.5-14.5) 15.9 % (11.5-14.5) Platelet Count 358 x10^3/uL (140-400) 337 x10^3/uL (140-400) 322 x10^3/uL (140-400) Neutrophils (%) (Auto) 76 % (31-73) 75 % (31-73) Lymphocytes (%) (Auto) 11 % (24-48) 10 % (24-48) Monocytes (%) (Auto) 13 % (0-9) 12 % (0-9) Eosinophils (%) (Auto) 0 % (0-3) 2 % (0-3) Basophils (%) (Auto) 1 % (0-3) 1 % (0-3) Neutrophils # (Auto) 10.7 x10^3/uL (1.8-7.7) 8.2 x10^3/uL (1.8-7.7) Lymphocytes # (Auto) 1.5 x10^3/uL (1.0-4.8) 1.1 x10^3/uL (1.0-4.8) Monocytes # (Auto) 1.8 x10^3/uL (0.0-1.1) 1.3 x10^3/uL (0.0-1.1) Eosinophils # (Auto) 0.0 x10^3/uL (0.0-0.7) 0.3 x10^3/uL (0.0-0.7) Basophils # (Auto) 0.1 x10^3/uL (0.0-0.2) 0.1 x10^3/uL (0.0-0.2) Sodium Level 146 mmol/L (136-145) 148 mmol/L (136-145) Potassium Level 3.8 mmol/L (3.5-5.1) 4.0 mmol/L (3.5-5.1) Chloride Level 113 mmol/L (98-107) 113 mmol/L (98-107) Carbon Dioxide Level 23 mmol/L (21-32) 24 mmol/L (21-32) Anion Gap 10 (6-14) 11 (6-14) Blood Urea Nitrogen 29 mg/dL (7-20) 21 mg/dL (7-20) Creatinine 1.1 mg/dL (0.6-1.0) 0.7 mg/dL (0.6-1.0) Estimated GFR (Cockcroft-Gault) 47.6 80.1 Glucose Level 116 mg/dL (70-99) 81 mg/dL (70-99) Calcium Level 7.9 mg/dL (8.5-10.1) 7.8 mg/dL (8.5-10.1) Phosphorus Level 3.9 mg/dL (2.6-4.7) Magnesium Level 1.9 mg/dL (1.8-2.4) 1.9 mg/dL (1.8-2.4) Laboratory Tests Test 09/15/21 05:35 White Blood Count 11.0 x10^3/uL (4.0-11.0) Red Blood Count 2.17 x10^6/uL (3.50-5.40) Hemoglobin 7.0 g/dL (12.0-15.5) Hematocrit 21.0 % (36.0-47.0) Mean Corpuscular Volume 97 fL (79-100) Mean Corpuscular Hemoglobin 32 pg (25-35) Mean Corpuscular Hemoglobin Concent 33 g/dL (31-37) Red Cell Distribution Width 15.9 % (11.5-14.5) Platelet Count 322 x10^3/uL (140-400) Neutrophils (%) (Auto) 75 % (31-73) Lymphocytes (%) (Auto) 10 % (24-48) Monocytes (%) (Auto) 12 % (0-9) Eosinophils (%) (Auto) 2 % (0-3) Basophils (%) (Auto) 1 % (0-3) Neutrophils # (Auto) 8.2 x10^3/uL (1.8-7.7) Lymphocytes # (Auto) 1.1 x10^3/uL (1.0-4.8) Monocytes # (Auto) 1.3 x10^3/uL (0.0-1.1) Eosinophils # (Auto) 0.3 x10^3/uL (0.0-0.7) Basophils # (Auto) 0.1 x10^3/uL (0.0-0.2) Sodium Level 148 mmol/L (136-145) Potassium Level 4.0 mmol/L (3.5-5.1) Chloride Level 113 mmol/L (98-107) Carbon Dioxide Level 24 mmol/L (21-32) Anion Gap 11 (6-14) Blood Urea Nitrogen 21 mg/dL (7-20) Creatinine 0.7 mg/dL (0.6-1.0) Estimated GFR (Cockcroft-Gault) 80.1 Glucose Level 81 mg/dL (70-99) Calcium Level 7.8 mg/dL (8.5-10.1) Magnesium Level 1.9 mg/dL (1.8-2.4) Problem List Problems Medical Problems: (1) Anemia Status: Acute (2) Hemoperitoneum Status: Acute (3) Lactic acidosis Status: Acute (4) Nausea and vomiting Status: Acute (5) Right lower lobe pneumonia Status: Acute (6) Right sided abdominal pain Status: Acute (7) Sepsis Status: Acute Assessment/Plan Hemoperitoneum source of bleeding unknown. Hemoglobin this morning 7.0 down from 8.2. Shortness of breath with an O2 saturation of 94% on room air Benign abdominal exam unlikely more bleeding hemoglobin 7.0 likely drift and delusional Shortness of breath concerning for to flux mixer for evaluation Justicifation of Admission Dx: Justifications for Admission: Justification of Admission Dx: N/A GA BARRETO MD Sep 15, 2021 08:13
--- NOTE | 2021-09-15 08:29 | PDOC ---
[facility] PROGRESS NOTE Date of Service DOS: DATE: 09/15/21 TIME: 08:25 Chief Complaint Chief Complaint Hemoperitoneum of undetermined etiology Sepsis Hemodynamic instability secondary to acute blood loss Acute right lower lobe pneumonia, possible gram negative organisms BRII due to vasomotor nephropathy ATN Lactic acidosis History of right hip replacement History of rectal tumor History of breast cancer Severe protein calorie malnutrtion - likely from recent illness History of Present Illness History of Present Illness Ms Pelletier is an 80 year old female with PMHx HTN brought in by EMS from home c/o generalized abdominal pain, weakness, mild cough and several episodes of nausea and vomiting with weakness. Pain is mostly located in the right upper quadrant and right abdomen. She denies urinary symptoms. She is chronically incontinent of urine, no changes with that today. She began experiencing diarrhea symptoms yesterday as well. She denies hematemesis, melena or hematochezia. She denies having a fever at home, she is afebrile here. She denies recent travel, sick contacts, recent hospitalization. CT abdomen pelvis concerning for hemoperitoneum. Admitted for further care 09/14: Patient seen and examined in the ICU. She appears quite weak ill and probably confused. IR eval - unlikely lacerated liver, likely other source of bleeding into her hemoperitoneum Negative tagged red blood cell scan to see if we can determine where the bleeding is coming from. General surgery consulted. 09/15: CR improved to 0.7, Hb 7, WBC 11 complaining of shortness of breath. COVID 19 PCR negative. With basilar crackles get incentive spirometer Lasix x1 and chest radiograph. Likely developing right lower lobe pneumonia is worsening. Vitals/I&O Vitals/I&O: Vital Signs Date Time Temp Pulse Resp B/P (MAP) Pulse Ox O2 Delivery O2 Flow Rate FiO2 09/15/21 03:21 98.7 114 20 137/72 (93) 92 Room Air 98.7 I & O 09/14/21 09/14/21 09/15/21 15:00 23:00 07:00 Intake Total 0 ml 660 ml 240 ml Output Total 250 ml Balance -250 ml 660 ml 240 ml Physical Exam General: Alert, Oriented X3, Cooperative, No acute distress, Other (Does not appear to be a little short of breath O2 saturation 94% on room air) Heart: Regular rate, No murmurs Lungs: Clear Abdomen: Normal bowel sounds, Soft, No tenderness Extremities: No edema Skin: No significant lesion Labs Labs: Laboratory Tests Test 09/15/21 05:35 White Blood Count 11.0 x10^3/uL (4.0-11.0) Red Blood Count 2.17 x10^6/uL (3.50-5.40) Hemoglobin 7.0 g/dL (12.0-15.5) Hematocrit 21.0 % (36.0-47.0) Mean Corpuscular Volume 97 fL (79-100) Mean Corpuscular Hemoglobin 32 pg (25-35) Mean Corpuscular Hemoglobin Concent 33 g/dL (31-37) Red Cell Distribution Width 15.9 % (11.5-14.5) Platelet Count 322 x10^3/uL (140-400) Neutrophils (%) (Auto) 75 % (31-73) Lymphocytes (%) (Auto) 10 % (24-48) Monocytes (%) (Auto) 12 % (0-9) Eosinophils (%) (Auto) 2 % (0-3) Basophils (%) (Auto) 1 % (0-3) Neutrophils # (Auto) 8.2 x10^3/uL (1.8-7.7) Lymphocytes # (Auto) 1.1 x10^3/uL (1.0-4.8) Monocytes # (Auto) 1.3 x10^3/uL (0.0-1.1) Eosinophils # (Auto) 0.3 x10^3/uL (0.0-0.7) Basophils # (Auto) 0.1 x10^3/uL (0.0-0.2) Sodium Level 148 mmol/L (136-145) Potassium Level 4.0 mmol/L (3.5-5.1) Chloride Level 113 mmol/L (98-107) Carbon Dioxide Level 24 mmol/L (21-32) Anion Gap 11 (6-14) Blood Urea Nitrogen 21 mg/dL (7-20) Creatinine 0.7 mg/dL (0.6-1.0) Estimated GFR (Cockcroft-Gault) 80.1 Glucose Level 81 mg/dL (70-99) Calcium Level 7.8 mg/dL (8.5-10.1) Magnesium Level 1.9 mg/dL (1.8-2.4) Assessment and Plan Assessmemt and Plan Problems Medical Problems: (1) Anemia Status: Acute (2) Hemoperitoneum Status: Acute (3) Lactic acidosis Status: Acute (4) Nausea and vomiting Status: Acute (5) Right lower lobe pneumonia Status: Acute (6) Right sided abdominal pain Status: Acute (7) Sepsis Status: Acute Comment Review of Relevant I have reviewed the following items essence (where applicable) has been applied. Medications: Current Medications Medications (Trade) Dose Ordered Sig/Kostas Route PRN Reason Start Time Stop Time Status Last Admin Dose Admin Vancomycin HCl 750 mg/Sodium Chloride 250 ml @ 250 mls/hr Q24H IV 09/14/21 17:00 09/14/21 17:58 Brimonidine Tartrate (Alphagan) 1 drop BID OU 09/14/21 11:00 09/14/21 20:18 Latanoprost (Xalatan) 1 drop QHS OD 09/14/21 21:00 09/14/21 20:18 Glycerin/ Hypromellose/ Polyethylene (Artificial Tears) 1 drop BID OU 09/14/21 11:30 09/14/21 20:18 Dexamethasone Sodium Phosphate (Maxidex) 1 drop Q4HRS W/A OS 09/14/21 22:00 09/14/21 23:21 DC 09/14/21 21:12 Dexamethasone Sodium Phosphate (Maxidex) 1 drop Q4HRS W/A OD 09/14/21 23:30 09/15/21 04:27 Justifications for Admission Other Justification Sepsis STERLING BERNAL MD Sep 15, 2021 08:29
[2021-09-15] MEDS ORDERED: fentaNYL PF VIAL 100 MCG/2 ML VIAL IVP PRN (08:30)
[2021-09-15] MEDS: BRIMONIDINE 0.2% OPHTH SOLUTION 5ML BOTTLE. OU SCH ×2 (08:40→20:33)
[2021-09-15] MEDS: POLYVINYL ALCOHOL 1.4% OPHTH SOLUTION 15ML BOTTLE. OU SCH ×2 (08:43→20:33)
[2021-09-15 08:53] LABS: ALBUMIN 2.3 g/dL (3.4-5.0); DIRECT BILIRUBIN 0.3 mg/dL (0.0-0.2); TOTAL BILIRUBIN 0.9 mg/dL (0.2-1.0)
[2021-09-15] MEDS ORDERED: FUROSEMIDE 20 MG/2 ML VIAL. IVP ONE (09:45)
[2021-09-15 10:51] VITALS: BP 121/68
[2021-09-15 15:00] VITALS: BP 130/68
[2021-09-15 16:09] LABS: VANC TR 4.7 mcg/mL (10.0-20.0)
--- NOTE | 2021-09-15 16:15 | RAD ---
EXAM: CHEST ONE VIEW. HISTORY: Shortness of breath. COMPARISON: 09/13/2021. FINDINGS: A frontal view of the chest is obtained. The right hemidiaphragm is mildly elevated. Linear opacities in the right bases are mildly increased but most likely reflect atelectasis. There is no pneumothorax or pleural effusion. The heart is not e nlarged. There are atherosclerotic calcifications of the aorta. IMPRESSION: 1. Mildly increased right basilar atelectasis. No clear confluent infiltrates. Electronically signed by: Thais Frost MD (09/15/2021 4:13 PM) [id number]
[2021-09-15] MEDS: VANCOMYCIN PER PHARMACY MC PRN (17:22)
--- NOTE | 2021-09-15 17:25 | NUR ---
Pharmacy Vancomycin Dosing Note S: Consulted to monitor and dose vancomycin started 09/13/21. O: JOE MCDONALD is a 80 year old F with Sepsis, Pneumonia Other Antibiotics: ZOSYN LABS: Last BUN: 21 Last Creatinine: 0.7 Creatinine Clearance: 44 mL/min Last WBC: 11.0 Last Procalcitonin: 0.88 Tmax (past 24 hours): AFEBRILE Drug Levels: Last Trough level: 4.7 on 09/15/21 at 1525 Last dose given 09/14/21 at 1758 Vancomycin Dosing: Dosing Weight: Actual Target Trough: 10-20 A: Based on: SUBTHERAPEUTIC TROUGH P: 1. CHANGE Vancomycin to 750 mg IV q12h 2. Follow up Trough level in 5-7 days 3. Pharmacy will continue to monitor, follow and adjust therapy as needed. MARCUS FLANAGAN RPH, 09/15/21 [id number]
[2021-09-15] MEDS: VANCOMYCIN 750 MG in IV NORMAL SALINE 250ML 250 ML IV SCH (17:31)
[2021-09-15 19:00] VITALS: BP 122/62
[2021-09-15] MEDS: LATANOPROST 0.005% OPHTH SOLUTION 2.5ML BOTTLE. OD SCH (20:33)
[2021-09-15] MEDS: FAMOTIDINE 20 MG TABLET. PO SCH (20:33)
[2021-09-15 22:36] VITALS: BP 126/60
[2021-09-16] VITALS (10 sets, daily range): BP systolic 114–144; BP diastolic 54–80
[2021-09-16] MEDS: PIPERACILLIN/TAZOBACTAM 2.25 GM in IV NORMAL SALINE 50ML 50 ML IV SCH ×4 (05:00→23:45)
[2021-09-16] MEDS: DEXAMETHASONE 0.1% OPHTH SOLUTION 5ML BOTTLE. OD SCH ×6 (05:02→20:55)
[2021-09-16] MEDS: VANCOMYCIN 750 MG in IV NORMAL SALINE 250ML 250 ML IV SCH ×2 (05:16→17:44)
[2021-09-16 07:12] LABS: BASO # 0.1 x10^3/uL (0.0-0.2); BASO % 1 % (0-3); EOS # 0.6 x10^3/uL (0.0-0.7); EOS % 7 % (0-3); HEMATOCRIT 20.8 % (36.0-47.0); LYMPH % 12 % (24-48); MEAN CORPUSCULAR HEMOGLOBIN 32 pg (25-35); MEAN CORPUSCULAR HGB CONC 33 g/dL (31-37); MEAN CORPUSCULAR VOLUME 97 fL (79-100); MONO % 12 % (0-9); NEUT # 5.7 x10^3/uL (1.8-7.7); NEUT % 68 % (31-73); PLATELET COUNT 315 x10^3/uL (140-400); RED BLOOD COUNT 2.14 x10^6/uL (3.50-5.40); RED CELL DISTRIBUTION WIDTH 15.4 % (11.5-14.5); WHITE BLOOD COUNT 8.4 x10^3/uL (4.0-11.0)
[2021-09-16 07:15] LABS: HEMOGLOBIN 6.8 g/dL (12.0-15.5)
[2021-09-16 07:27] LABS: CALCIUM 7.9 mg/dL (8.5-10.1); CREATININE 0.6 mg/dL (0.6-1.0); GFR 95.7; MAGNESIUM 1.8 mg/dL (1.8-2.4); POTASSIUM 3.6 mmol/L (3.5-5.1)
--- NOTE | 2021-09-16 07:36 | PDOC ---
[employer] PROGRESS NOTE Date of Service DOS: DATE: 09/16/21 TIME: 07:35 Chief Complaint Chief Complaint Hemoperitoneum of undetermined etiology Sepsis Hemodynamic instability secondary to acute blood loss Acute right lower lobe pneumonia, possible gram negative organisms BRII due to vasomotor nephropathy ATN Lactic acidosis History of right hip replacement History of rectal tumor History of breast cancer Severe protein calorie malnutrtion - likely from recent illness History of Present Illness History of Present Illness Ms Pelletier is an 80 year old female with PMHx HTN brought in by EMS from home c/o generalized abdominal pain, weakness, mild cough and several episodes of nausea and vomiting with weakness. Pain is mostly located in the right upper quadrant and right abdomen. She denies urinary symptoms. She is chronically incontinent of urine, no changes with that today. She began experiencing diarrhea symptoms yesterday as well. She denies hematemesis, melena or hematochezia. She denies having a fever at home, she is afebrile here. She denies recent travel, sick contacts, recent hospitalization. CT abdomen pelvis concerning for hemoperitoneum. Admitted for further care 09/14: Patient seen and examined in the ICU. She appears quite weak ill and probably confused. IR eval - unlikely lacerated liver, likely other source of bleeding into her hemoperitoneum Negative tagged red blood cell scan to see if we can determine where the bleeding is coming from. General surgery consulted. 09/15: CR improved to 0.7, Hb 7, WBC 11 complaining of shortness of breath. COVID 19 PCR negative. With basilar crackles get incentive spirometer Lasix x1 and chest radiograph. Likely developing right lower lobe pneumonia is worsening. 09/16: Hb 6.8. Mag 1.8,. Creatinine improved to 0.6. Breathing improved with furosemide injection large urine output. Tolerating antibiotics well discussed with daughter at bedside we will continue to treat for community-acquired pneumonia and repeat hemogram in the morning. Patient is overall feeling improved Vitals/I&O Vitals/I&O: Vital Signs Date Time Temp Pulse Resp B/P (MAP) Pulse Ox O2 Delivery O2 Flow Rate FiO2 09/16/21 02:42 97.9 94 17 114/54 (74) 100 Nasal Cannula 2.0 97.9 I & O 0 09/15/21 09/15/21 09/16/21 15:00 23:00 07:00 Intake Total 550 ml Balance 550 ml Physical Exam General: Alert, Oriented X3, Cooperative, No acute distress, Other (Does not appear to be a little short of breath O2 saturation 94% on room air) Heart: Regular rate, No murmurs Lungs: Clear Abdomen: Normal bowel sounds, Soft, No tenderness Extremities: No edema Skin: No significant lesion Labs Labs: Laboratory Tests Test 09/15/21 15:25 09/16/21 06:00 Vancomycin Level Trough 4.7 mcg/mL (10.0-20.0) Vancomycin Last Dose Date 09/14/21 Vancomycin Last Dose Time 1700 White Blood Count 8.4 x10^3/uL (4.0-11.0) Red Blood Count 2.14 x10^6/uL (3.50-5.40) Hemoglobin 6.8 g/dL (12.0-15.5) Hematocrit 20.8 % (36.0-47.0) Mean Corpuscular Volume 97 fL (79-100) Mean Corpuscular Hemoglobin 32 pg (25-35) Mean Corpuscular Hemoglobin Concent 33 g/dL (31-37) Red Cell Distribution Width 15.4 % (11.5-14.5) Platelet Count 315 x10^3/uL (140-400) Neutrophils (%) (Auto) 68 % (31-73) Lymphocytes (%) (Auto) 12 % (24-48) Monocytes (%) (Auto) 12 % (0-9) Eosinophils (%) (Auto) 7 % (0-3) Basophils (%) (Auto) 1 % (0-3) Neutrophils # (Auto) 5.7 x10^3/uL (1.8-7.7) Lymphocytes # (Auto) 1.0 x10^3/uL (1.0-4.8) Monocytes # (Auto) 1.0 x10^3/uL (0.0-1.1) Eosinophils # (Auto) 0.6 x10^3/uL (0.0-0.7) Basophils # (Auto) 0.1 x10^3/uL (0.0-0.2) Sodium Level 148 mmol/L (136-145) Potassium Level 3.6 mmol/L (3.5-5.1) Chloride Level 111 mmol/L (98-107) Carbon Dioxide Level 28 mmol/L (21-32) Anion Gap 9 (6-14) Blood Urea Nitrogen 19 mg/dL (7-20) Creatinine 0.6 mg/dL (0.6-1.0) Estimated GFR (Cockcroft-Gault) 95.7 Glucose Level 96 mg/dL (70-99) Calcium Level 7.9 mg/dL (8.5-10.1) Magnesium Level 1.8 mg/dL (1.8-2.4) Assessment and Plan Assessmemt and Plan Problems Medical Problems: (1) Anemia Status: Acute (2) Hemoperitoneum Status: Acute (3) Lactic acidosis Status: Acute (4) Nausea and vomiting Status: Acute (5) Right lower lobe pneumonia Status: Acute (6) Right sided abdominal pain Status: Acute (7) Sepsis Status: Acute Comment Review of Relevant I have reviewed the following items essence (where applicable) has been applied. Medications: Current Medications Medications (Trade) Dose Ordered Sig/Kostas Route PRN Reason Start Time Stop Time Status Last Admin Dose Admin Vancomycin HCl (Vancomycin Trough Level) 1 each 1X ONCE MC 09/15/21 16:30 09/15/21 16:31 DC 09/15/21 16:30 Furosemide (Lasix) 20 mg 1X ONCE IVP 09/15/21 09:45 09/15/21 09:54 DC 09/15/21 10:19 Vancomycin HCl 750 mg/Sodium Chloride 250 ml @ 250 mls/hr Q12H IV 09/15/21 18:00 09/16/21 05:16 Justifications for Admission Other Justification Sepsis STERLING BERNAL MD Sep 16, 2021 07:36
[2021-09-16] MEDS: POLYVINYL ALCOHOL 1.4% OPHTH SOLUTION 15ML BOTTLE. OU SCH ×3 (07:59→20:55)
[2021-09-16] MEDS: BRIMONIDINE 0.2% OPHTH SOLUTION 5ML BOTTLE. OU SCH ×2 (07:59→20:37)
[2021-09-16] MEDS ORDERED: MAGNESIUM SULFATE 2GM 50 ML IV ONE (08:00)
--- NOTE | 2021-09-16 09:45 | PDOC ---
[employer] 09/16/21 0945: SURGICAL PROGRESS NOTE DATE: 09/16/21 TIME: 09:44 Subjective denies abdominal pain no nausea Vital Signs Vital Signs Date Time Temp Pulse Resp B/P (MAP) Pulse Ox O2 Delivery O2 Flow Rate FiO2 09/16/21 07:00 98.1 108 18 137/79 (98) 99 Nasal Cannula 2.0 98.1 I&O Intake and Output 09/16/21 07:00 Intake Total 550 ml Balance 550 ml Intake Oral 550 ml # Voids 7 General: Alert, Oriented X3, Cooperative Abdomen: Soft, No tenderness Labs Laboratory Tests Test 09/15/21 05:35 09/15/21 15:25 09/16/21 06:00 White Blood Count 11.0 x10^3/uL (4.0-11.0) 8.4 x10^3/uL (4.0-11.0) Red Blood Count 2.17 x10^6/uL (3.50-5.40) 2.14 x10^6/uL (3.50-5.40) Hemoglobin 7.0 g/dL (12.0-15.5) 6.8 g/dL (12.0-15.5) Hematocrit 21.0 % (36.0-47.0) 20.8 % (36.0-47.0) Mean Corpuscular Volume 97 fL (79-100) 97 fL (79-100) Mean Corpuscular Hemoglobin 32 pg (25-35) 32 pg (25-35) Mean Corpuscular Hemoglobin Concent 33 g/dL (31-37) 33 g/dL (31-37) Red Cell Distribution Width 15.9 % (11.5-14.5) 15.4 % (11.5-14.5) Platelet Count 322 x10^3/uL (140-400) 315 x10^3/uL (140-400) Neutrophils (%) (Auto) 75 % (31-73) 68 % (31-73) Lymphocytes (%) (Auto) 10 % (24-48) 12 % (24-48) Monocytes (%) (Auto) 12 % (0-9) 12 % (0-9) Eosinophils (%) (Auto) 2 % (0-3) 7 % (0-3) Basophils (%) (Auto) 1 % (0-3) 1 % (0-3) Neutrophils # (Auto) 8.2 x10^3/uL (1.8-7.7) 5.7 x10^3/uL (1.8-7.7) Lymphocytes # (Auto) 1.1 x10^3/uL (1.0-4.8) 1.0 x10^3/uL (1.0-4.8) Monocytes # (Auto) 1.3 x10^3/uL (0.0-1.1) 1.0 x10^3/uL (0.0-1.1) Eosinophils # (Auto) 0.3 x10^3/uL (0.0-0.7) 0.6 x10^3/uL (0.0-0.7) Basophils # (Auto) 0.1 x10^3/uL (0.0-0.2) 0.1 x10^3/uL (0.0-0.2) Sodium Level 148 mmol/L (136-145) 148 mmol/L (136-145) Potassium Level 4.0 mmol/L (3.5-5.1) 3.6 mmol/L (3.5-5.1) Chloride Level 113 mmol/L (98-107) 111 mmol/L (98-107) Carbon Dioxide Level 24 mmol/L (21-32) 28 mmol/L (21-32) Anion Gap 11 (6-14) 9 (6-14) Blood Urea Nitrogen 21 mg/dL (7-20) 19 mg/dL (7-20) Creatinine 0.7 mg/dL (0.6-1.0) 0.6 mg/dL (0.6-1.0) Estimated GFR (Cockcroft-Gault) 80.1 95.7 Glucose Level 81 mg/dL (70-99) 96 mg/dL (70-99) Calcium Level 7.8 mg/dL (8.5-10.1) 7.9 mg/dL (8.5-10.1) Magnesium Level 1.9 mg/dL (1.8-2.4) 1.8 mg/dL (1.8-2.4) Total Bilirubin 0.9 mg/dL (0.2-1.0) Direct Bilirubin 0.3 mg/dL (0.0-0.2) Aspartate Amino Transf (AST/SGOT) 18 U/L (15-37) Alanine Aminotransferase (ALT/SGPT) 13 U/L (14-59) Alkaline Phosphatase 53 U/L (46-116) Total Protein 5.0 g/dL (6.4-8.2) Albumin 2.3 g/dL (3.4-5.0) Thyroid Stimulating Hormone (TSH) 1.497 uIU/mL (0.358-3.74) Vancomycin Level Trough 4.7 mcg/mL (10.0-20.0) Vancomycin Last Dose Date 09/14/21 Vancomycin Last Dose Time 1700 Laboratory Tests Test 09/15/21 15:25 09/16/21 06:00 Vancomycin Level Trough 4.7 mcg/mL (10.0-20.0) Vancomycin Last Dose Date 09/14/21 Vancomycin Last Dose Time 1700 White Blood Count 8.4 x10^3/uL (4.0-11.0) Red Blood Count 2.14 x10^6/uL (3.50-5.40) Hemoglobin 6.8 g/dL (12.0-15.5) Hematocrit 20.8 % (36.0-47.0) Mean Corpuscular Volume 97 fL (79-100) Mean Corpuscular Hemoglobin 32 pg (25-35) Mean Corpuscular Hemoglobin Concent 33 g/dL (31-37) Red Cell Distribution Width 15.4 % (11.5-14.5) Platelet Count 315 x10^3/uL (140-400) Neutrophils (%) (Auto) 68 % (31-73) Lymphocytes (%) (Auto) 12 % (24-48) Monocytes (%) (Auto) 12 % (0-9) Eosinophils (%) (Auto) 7 % (0-3) Basophils (%) (Auto) 1 % (0-3) Neutrophils # (Auto) 5.7 x10^3/uL (1.8-7.7) Lymphocytes # (Auto) 1.0 x10^3/uL (1.0-4.8) Monocytes # (Auto) 1.0 x10^3/uL (0.0-1.1) Eosinophils # (Auto) 0.6 x10^3/uL (0.0-0.7) Basophils # (Auto) 0.1 x10^3/uL (0.0-0.2) Sodium Level 148 mmol/L (136-145) Potassium Level 3.6 mmol/L (3.5-5.1) Chloride Level 111 mmol/L (98-107) Carbon Dioxide Level 28 mmol/L (21-32) Anion Gap 9 (6-14) Blood Urea Nitrogen 19 mg/dL (7-20) Creatinine 0.6 mg/dL (0.6-1.0) Estimated GFR (Cockcroft-Gault) 95.7 Glucose Level 96 mg/dL (70-99) Calcium Level 7.9 mg/dL (8.5-10.1) Magnesium Level 1.8 mg/dL (1.8-2.4) Problem List Problems Medical Problems: (1) Anemia Status: Acute (2) Hemoperitoneum Status: Acute (3) Lactic acidosis Status: Acute (4) Nausea and vomiting Status: Acute (5) Right lower lobe pneumonia Status: Acute (6) Right sided abdominal pain Status: Acute (7) Sepsis Status: Acute Assessment/Plan hgb 6.8, 7 yesterday, appears unlikely active bleed, benign abdominal exam plans for blood today observation Justicifation of Admission Dx: Justifications for Admission: Justification of Admission Dx: N/A GA BARRETO MD 09/16/21 1204: SURGICAL PROGRESS NOTE Assessment/Plan Agree with [facility] assessment plan COTY CARRANZA APRN Sep 16, 2021 09:45 GA BARRETO MD Sep 16, 2021 12:04
--- NOTE | 2021-09-16 16:14 | NUR ---
Patient had a critical hgb: 6.[address] Duffy was notified and ordered received to give one unit of RBC.
[2021-09-16] MEDS: LACTOBACILLUS RHAMNOSUS GG 1 CAPSULE. PO SCH (20:37)
[2021-09-16] MEDS: LATANOPROST 0.005% OPHTH SOLUTION 2.5ML BOTTLE. OU SCH ×2 (20:37→20:55)
[2021-09-16] MEDS: FAMOTIDINE 20 MG TABLET. PO SCH (20:37)
[2021-09-17 03:46] VITALS: BP 132/72
--- NOTE | 2021-09-17 03:46 | NUR ---
pt refused for 0300 vital signs to be taken
[2021-09-17] MEDS: DEXAMETHASONE 0.1% OPHTH SOLUTION 5ML BOTTLE. OD SCH ×5 (05:28→22:03)
[2021-09-17] MEDS: PIPERACILLIN/TAZOBACTAM 2.25 GM in IV NORMAL SALINE 50ML 50 ML IV SCH (05:29)
[2021-09-17] MEDS: VANCOMYCIN 750 MG in IV NORMAL SALINE 250ML 250 ML IV SCH (05:58)
[2021-09-17 06:42] LABS: CALCIUM 8.1 mg/dL (8.5-10.1); CREATININE 0.6 mg/dL (0.6-1.0); GFR 95.7; POTASSIUM 3.1 mmol/L (3.5-5.1)
[2021-09-17 06:56] LABS: HEMATOCRIT 24.5 % (36.0-47.0); HEMOGLOBIN 8.2 g/dL (12.0-15.5); RED BLOOD COUNT 2.58 x10^6/uL (3.50-5.40); RED CELL DISTRIBUTION WIDTH 18.5 % (11.5-14.5); WHITE BLOOD COUNT 8.5 x10^3/uL (4.0-11.0)
[2021-09-17 07:30] VITALS: BP 143/68
[2021-09-17] MEDS: POLYVINYL ALCOHOL 1.4% OPHTH SOLUTION 15ML BOTTLE. OU SCH ×2 (08:26→21:00)
[2021-09-17] MEDS: LACTOBACILLUS RHAMNOSUS GG 1 CAPSULE. PO SCH ×2 (08:26→22:00)
[2021-09-17] MEDS: BRIMONIDINE 0.2% OPHTH SOLUTION 5ML BOTTLE. OU SCH ×2 (08:26→21:57)
[2021-09-17] MEDS ORDERED: POTASSIUM CHLORIDE 20 MEQ TABLET.ER. PO ONE (10:30)
[2021-09-17 11:00] VITALS: BP 133/76
--- NOTE | 2021-09-17 11:14 | PDOC ---
SURGICAL PROGRESS NOTE DATE: 09/17/21 TIME: 11:08 Subjective no abdominal pain no n/v Vital Signs Vital Signs Date Time Temp Pulse Resp B/P (MAP) Pulse Ox O2 Delivery O2 Flow Rate FiO2 09/17/21 08:18 Room Air 2.0 09/17/21 07:30 97.9 90 17 143/68 (93) 98 97.9 I&O Intake and Output 09/17/21 07:00 Intake Total 660 ml Output Total 600 ml Balance 60 ml Intake Oral 300 ml IV Total 350 ml Blood Product IV Normal Saline Flush 10 ml Output Urine Total 600 ml General: Alert, Oriented X3, Cooperative Abdomen: Soft, No tenderness Labs Laboratory Tests Test 09/15/21 15:25 09/16/21 06:00 09/16/21 19:09 09/17/21 05:10 Vancomycin Level Trough 4.7 mcg/mL (10.0-20.0) Vancomycin Last Dose Date 09/14/21 Vancomycin Last Dose Time 1700 White Blood Count 8.4 x10^3/uL (4.0-11.0) 8.5 x10^3/uL (4.0-11.0) Red Blood Count 2.14 x10^6/uL (3.50-5.40) 2.58 x10^6/uL (3.50-5.40) Hemoglobin 6.8 g/dL (12.0-15.5) 8.2 g/dL (12.0-15.5) Hematocrit 20.8 % (36.0-47.0) 24.5 % (36.0-47.0) Mean Corpuscular Volume 97 fL (79-100) 95 fL (79-100) Mean Corpuscular Hemoglobin 32 pg (25-35) 32 pg (25-35) Mean Corpuscular Hemoglobin Concent 33 g/dL (31-37) 33 g/dL (31-37) Red Cell Distribution Width 15.4 % (11.5-14.5) 18.5 % (11.5-14.5) Platelet Count 315 x10^3/uL (140-400) 353 x10^3/uL (140-400) Neutrophils (%) (Auto) 68 % (31-73) Lymphocytes (%) (Auto) 12 % (24-48) Monocytes (%) (Auto) 12 % (0-9) Eosinophils (%) (Auto) 7 % (0-3) Basophils (%) (Auto) 1 % (0-3) Neutrophils # (Auto) 5.7 x10^3/uL (1.8-7.7) Lymphocytes # (Auto) 1.0 x10^3/uL (1.0-4.8) Monocytes # (Auto) 1.0 x10^3/uL (0.0-1.1) Eosinophils # (Auto) 0.6 x10^3/uL (0.0-0.7) Basophils # (Auto) 0.1 x10^3/uL (0.0-0.2) Sodium Level 148 mmol/L (136-145) 144 mmol/L (136-145) Potassium Level 3.6 mmol/L (3.5-5.1) 3.1 mmol/L (3.5-5.1) Chloride Level 111 mmol/L (98-107) 106 mmol/L (98-107) Carbon Dioxide Level 28 mmol/L (21-32) 31 mmol/L (21-32) Anion Gap 9 (6-14) 7 (6-14) Blood Urea Nitrogen 19 mg/dL (7-20) 13 mg/dL (7-20) Creatinine 0.6 mg/dL (0.6-1.0) 0.6 mg/dL (0.6-1.0) Estimated GFR (Cockcroft-Gault) 95.7 95.7 Glucose Level 96 mg/dL (70-99) 103 mg/dL (70-99) Calcium Level 7.9 mg/dL (8.5-10.1) 8.1 mg/dL (8.5-10.1) Magnesium Level 1.8 mg/dL (1.8-2.4) Glucose (Fingerstick) 125 mg/dL (70-99) Laboratory Tests Test 09/16/21 19:09 09/17/21 05:10 Glucose (Fingerstick) 125 mg/dL (70-99) White Blood Count 8.5 x10^3/uL (4.0-11.0) Red Blood Count 2.58 x10^6/uL (3.50-5.40) Hemoglobin 8.2 g/dL (12.0-15.5) Hematocrit 24.5 % (36.0-47.0) Mean Corpuscular Volume 95 fL (79-100) Mean Corpuscular Hemoglobin 32 pg (25-35) Mean Corpuscular Hemoglobin Concent 33 g/dL (31-37) Red Cell Distribution Width 18.5 % (11.5-14.5) Platelet Count 353 x10^3/uL (140-400) Sodium Level 144 mmol/L (136-145) Potassium Level 3.1 mmol/L (3.5-5.1) Chloride Level 106 mmol/L (98-107) Carbon Dioxide Level 31 mmol/L (21-32) Anion Gap 7 (6-14) Blood Urea Nitrogen 13 mg/dL (7-20) Creatinine 0.6 mg/dL (0.6-1.0) Estimated GFR (Cockcroft-Gault) 95.7 Glucose Level 103 mg/dL (70-99) Calcium Level 8.1 mg/dL (8.5-10.1) Problem List Problems Medical Problems: (1) Anemia Status: Acute (2) Hemoperitoneum Status: Acute (3) Lactic acidosis Status: Acute (4) Nausea and vomiting Status: Acute (5) Right lower lobe pneumonia Status: Acute (6) Right sided abdominal pain Status: Acute (7) Sepsis Status: Acute Assessment/Plan hgb improved, recheck in AM Justicifation of Admission Dx: Justifications for Admission: Justification of Admission Dx: N/A COTY CARRANZA APRN Sep 17, 2021 11:14
--- NOTE | 2021-09-17 11:51 | PDOC ---
[facility] PROGRESS NOTE Date of Service DOS: DATE: 09/17/21 TIME: 11:46 Chief Complaint Chief Complaint Hemoperitoneum of undetermined etiology Sepsis Hemodynamic instability secondary to acute blood loss Acute right lower lobe pneumonia, possible gram negative organisms BRII due to vasomotor nephropathy ATN Lactic acidosis History of right hip replacement History of rectal tumor History of breast cancer Severe protein calorie malnutrtion - likely from recent illness History of Present Illness History of Present Illness Ms Pelletier is an 80 year old female with PMHx HTN brought in by EMS from home c/o generalized abdominal pain, weakness, mild cough and several episodes of nausea and vomiting with weakness. Pain is mostly located in the right upper quadrant and right abdomen. She denies urinary symptoms. She is chronically incontinent of urine, no changes with that today. She began experiencing diarrhea symptoms yesterday as well. She denies hematemesis, melena or hematochezia. She denies having a fever at home, she is afebrile here. She denies recent travel, sick contacts, recent hospitalization. CT abdomen pelvis concerning for hemoperitoneum. Admitted for further care 09/14: Patient seen and examined in the ICU. She appears quite weak ill and probably confused. IR eval - unlikely lacerated liver, likely other source of bleeding into her hemoperitoneum Negative tagged red blood cell scan to see if we can determine where the bleeding is coming from. General surgery consulted. 09/15: CR improved to 0.7, Hb 7, WBC 11 complaining of shortness of breath. COVID 19 PCR negative. With basilar crackles get incentive spirometer Lasix x1 and chest radiograph. Likely developing right lower lobe pneumonia is worsening. 09/16: Hb 6.8. Mag 1.8,. Creatinine improved to 0.6. Breathing improved with furosemide injection large urine output. Tolerating antibiotics well discussed with daughter at bedside we will continue to treat for community-acquired pneumonia and repeat hemogram in the morning. Patient is overall feeling improved 09/17 Patient evaluated examined at bedside. Reported having some cough overnight. Does not need home oxygen based upon walk today. We'll recheck hemoglobin again this afternoon. Patient was able to provide a stool sample. We'll follow up with these results. Vitals/I&O Vitals/I&O: Vital Signs Date Time Temp Pulse Resp B/P (MAP) Pulse Ox O2 Delivery O2 Flow Rate FiO2 09/17/21 08:18 Room Air 2.0 09/17/21 07:30 97.9 90 17 143/68 (93) 98 97.9 l I & O 09/16/21 09/16/21 09/17/21 15:00 23:00 07:00 Intake Total 10 ml 550 ml 100 ml Output Total 250 ml 350 ml Balance 10 ml 300 ml -250 ml Physical Exam General: Alert, Oriented X3, Cooperative Heart: Regular rate, No murmurs Lungs: Clear Abdomen: Soft, No tenderness Extremities: No edema Skin: No significant lesion Labs Labs: Laboratory Tests Test 09/16/21 19:09 09/17/21 05:10 Glucose (Fingerstick) 125 mg/dL (70-99) White Blood Count 8.5 x10^3/uL (4.0-11.0) Red Blood Count 2.58 x10^6/uL (3.50-5.40) Hemoglobin 8.2 g/dL (12.0-15.5) Hematocrit 24.5 % (36.0-47.0) Mean Corpuscular Volume 95 fL (79-100) Mean Corpuscular Hemoglobin 32 pg (25-35) Mean Corpuscular Hemoglobin Concent 33 g/dL (31-37) Red Cell Distribution Width 18.5 % (11.5-14.5) Platelet Count 353 x10^3/uL (140-400) Sodium Level 144 mmol/L (136-145) Potassium Level 3.1 mmol/L (3.5-5.1) Chloride Level 106 mmol/L (98-107) Carbon Dioxide Level 31 mmol/L (21-32) Anion Gap 7 (6-14) Blood Urea Nitrogen 13 mg/dL (7-20) Creatinine 0.6 mg/dL (0.6-1.0) Estimated GFR (Cockcroft-Gault) 95.7 Glucose Level 103 mg/dL (70-99) Calcium Level 8.1 mg/dL (8.5-10.1) Assessment and Plan Assessmemt and Plan Problems Medical Problems: (1) Anemia Status: Acute (2) Hemoperitoneum Status: Acute (3) Lactic acidosis Status: Acute (4) Nausea and vomiting Status: Acute (5) Right lower lobe pneumonia Status: Acute (6) Right sided abdominal pain Status: Acute (7) Sepsis Status: Acute Comment Review of Relevant I have reviewed the following items essence (where applicable) has been applied. Medications: Current Medications Medications (Trade) Dose Ordered Sig/Kostas Route PRN Reason Start Time Stop Time Status Last Admin Dose Admin Lactobacillus Rhamnosus (Culturelle) 1 cap BID PO 09/16/21 21:00 09/17/21 08:26 Potassium Chloride (Klor-Con) 40 meq 1X ONCE PO 09/17/21 10:30 09/17/21 10:31 DC 09/17/21 11:14 Justifications for Admission Other Justification Sepsis STERLING ALONZO MD Sep 17, 2021 11:51
--- NOTE | 2021-09-17 12:24 | NUR ---
SW following. Discussed with RN, pt from home with family, room air, regular diet. Possible discharge this afternoon after repeat hgb check. RN advised no SW needs at this time. SW will continue to follow.
[2021-09-17 13:34] LABS: FECAL OB PT NEGATIVE (NEG)
[2021-09-17 14:02] LABS: HEMATOCRIT 25.6 % (36.0-47.0); HEMOGLOBIN 8.5 g/dL (12.0-15.5); RED BLOOD COUNT 2.71 x10^6/uL (3.50-5.40); RED CELL DISTRIBUTION WIDTH 17.9 % (11.5-14.5); WHITE BLOOD COUNT 9.1 x10^3/uL (4.0-11.0)
[2021-09-17 15:13] VITALS: BP 145/77
[2021-09-17 19:50] VITALS: BP 148/84
[2021-09-17] MEDS: CEFDINIR 300 MG CAPSULE PO SCH (22:00)
[2021-09-17] MEDS: DOXYCYCLINE HYCLATE 100 MG TABLET PO SCH (22:00)
[2021-09-17] MEDS: FAMOTIDINE 20 MG TABLET. PO SCH (22:00)
[2021-09-17] MEDS: guaiFENesin/CODEINE 100mg/10mg 5 ML LIQUID PO PRN (22:05)
[2021-09-17] MEDS: LATANOPROST 0.005% OPHTH SOLUTION 2.5ML BOTTLE. OU SCH (22:08)
[2021-09-17 23:31] VITALS: BP 147/84
[2021-09-18 00:33] LABS: ALBUMIN 2.5 g/dL (3.4-5.0); ALBUMIN/GLOBULIN RATIO 0.7 (1.0-1.7); CALCIUM 8.3 mg/dL (8.5-10.1); CREATININE 0.6 mg/dL (0.6-1.0); GFR 95.7; MAGNESIUM 1.7 mg/dL (1.8-2.4); PHOSPHORUS 2.3 mg/dL (2.6-4.7); TOTAL BILIRUBIN 1.8 mg/dL (0.2-1.0); TOTAL PROTEIN 5.9 g/dL (6.4-8.2)
[2021-09-18 00:43] LABS: POTASSIUM 2.9 mmol/L (3.5-5.1)
--- NOTE | 2021-09-18 02:05 | NUR ---
Spoke with Dr. Ken about patient's POC. Cardiology consult requested, Dr. Ken stated he would speak with cardiology this morning. See EMR for additional orders.
[2021-09-18] MEDS ORDERED: hydrALAZINE 20 MG/ML VIAL. IVP PRN (03:15)
[2021-09-18 03:29] VITALS: BP 158/89
[2021-09-18] MEDS: DEXAMETHASONE 0.1% OPHTH SOLUTION 5ML BOTTLE. OD SCH ×5 (06:00→23:09)
[2021-09-18 07:00] VITALS: BP 160/91
[2021-09-18] MEDS: CEFDINIR 300 MG CAPSULE PO SCH ×2 (08:47→23:08)
[2021-09-18] MEDS: BRIMONIDINE 0.2% OPHTH SOLUTION 5ML BOTTLE. OU SCH ×2 (08:47→23:09)
[2021-09-18] MEDS: DOXYCYCLINE HYCLATE 100 MG TABLET PO SCH ×2 (08:47→23:04)
[2021-09-18] MEDS: LACTOBACILLUS RHAMNOSUS GG 1 CAPSULE. PO SCH ×2 (08:47→23:07)
[2021-09-18] MEDS: POLYVINYL ALCOHOL 1.4% OPHTH SOLUTION 15ML BOTTLE. OU SCH ×2 (08:48→21:00)
[2021-09-18 11:00] VITALS: BP 148/88
[2021-09-18 11:24] LABS: HEMATOCRIT 31.5 % (36.0-47.0); HEMOGLOBIN 10.4 g/dL (12.0-15.5); RED BLOOD COUNT 3.34 x10^6/uL (3.50-5.40); RED CELL DISTRIBUTION WIDTH 17.5 % (11.5-14.5); WHITE BLOOD COUNT 10.6 x10^3/uL (4.0-11.0)
[2021-09-18 11:48] LABS: ALBUMIN 3.1 g/dL (3.4-5.0); ALBUMIN/GLOBULIN RATIO 0.8 (1.0-1.7); CALCIUM 8.9 mg/dL (8.5-10.1); CREATININE 0.6 mg/dL (0.6-1.0); GFR 95.7; POTASSIUM 3.1 mmol/L (3.5-5.1)
--- NOTE | 2021-09-18 12:11 | NUR ---
SW following. Discussed with RN, pt from home with family, room air, regular diet, COVID-19 negative. Cardiology consulted since yesterday. Surgery and IR following. RN advised no SW needs at this time. SW will continue to follow.
--- NOTE | 2021-09-18 12:33 | PDOC ---
[facility] PROGRESS NOTE Date of Service DOS: DATE: 09/18/21 TIME: 12:32 Chief Complaint Chief Complaint Hemoperitoneum of undetermined etiology Sepsis Hemodynamic instability secondary to acute blood loss Acute right lower lobe pneumonia, possible gram negative organisms BRII due to vasomotor nephropathy ATN Lactic acidosis History of right hip replacement History of rectal tumor History of breast cancer Severe protein calorie malnutrtion - likely from recent illness History of Present Illness History of Present Illness Ms Pelletier is an 80 year old female with PMHx HTN brought in by EMS from home c/o generalized abdominal pain, weakness, mild cough and several episodes of nausea and vomiting with weakness. Pain is mostly located in the right upper quadrant and right abdomen. She denies urinary symptoms. She is chronically incontinent of urine, no changes with that today. She began experiencing diarrhea symptoms yesterday as well. She denies hematemesis, melena or hematochezia. She denies having a fever at home, she is afebrile here. She denies recent travel, sick contacts, recent hospitalization. CT abdomen pelvis concerning for hemoperitoneum. Admitted for further care 09/14: Patient seen and examined in the ICU. She appears quite weak ill and probably confused. IR eval - unlikely lacerated liver, likely other source of bleeding into her hemoperitoneum Negative tagged red blood cell scan to see if we can determine where the bleeding is coming from. General surgery consulted. 09/15: CR improved to 0.7, Hb 7, WBC 11 complaining of shortness of breath. COVID 19 PCR negative. With basilar crackles get incentive spirometer Lasix x1 and chest radiograph. Likely developing right lower lobe pneumonia is worsening. 09/16: Hb 6.8. Mag 1.8,. Creatinine improved to 0.6. Breathing improved with furosemide injection large urine output. Tolerating antibiotics well discussed with daughter at bedside we will continue to treat for community-acquired pneumonia and repeat hemogram in the morning. Patient is overall feeling improved 09/17 Patient evaluated examined at bedside. Reported having some cough overnight. Does not need home oxygen based upon walk today. We'll recheck hemoglobin again this afternoon. Patient was able to provide a stool sample. We'll follow up with these results. 09/18 Patient evaluated examined at bedside. Stool occult negative yesterday. Overnight had multiple runs of V. tach. Had been having a few beats of it on previous nights but was having extended runs last night. Cardiology consulted. Hemoglobin stabilized. will follow up after seen by cardiology Vitals/I&O Vitals/I&O: Vital Signs Date Time Temp Pulse Resp B/P (MAP) Pulse Ox O2 Delivery O2 Flow Rate FiO2 09/18/21 11:00 98.4 114 18 148/88 (108) 95 Room Air 98.4 09/18/21 08:16 2.0 I & O 09/17/21 09/17/21 09/18/21 15:00 23:00 07:00 Intake Total 300 ml 120 ml Output Total 250 ml Balance 50 ml 120 ml Physical Exam General: Alert, Oriented X3, Cooperative Heart: Regular rate, No murmurs Lungs: Clear Abdomen: Soft, No tenderness Extremities: No edema Skin: No significant lesion Labs Labs: Laboratory Tests Test 09/17/21 13:54 09/18/21 00:01 09/18/21 11:15 White Blood Count 9.1 x10^3/uL (4.0-11.0) 10.6 x10^3/uL (4.0-11.0) Red Blood Count 2.71 x10^6/uL (3.50-5.40) 3.34 x10^6/uL (3.50-5.40) Hemoglobin 8.5 g/dL (12.0-15.5) 10.4 g/dL (12.0-15.5) Hematocrit 25.6 % (36.0-47.0) 31.5 % (36.0-47.0) Mean Corpuscular Volume 94 fL (79-100) 94 fL (79-100) Mean Corpuscular Hemoglobin 32 pg (25-35) 31 pg (25-35) Mean Corpuscular Hemoglobin Concent 33 g/dL (31-37) 33 g/dL (31-37) Red Cell Distribution Width 17.9 % (11.5-14.5) 17.5 % (11.5-14.5) Platelet Count 372 x10^3/uL (140-400) 489 x10^3/uL (140-400) Sodium Level 143 mmol/L (136-145) 141 mmol/L (136-145) Potassium Level 2.9 mmol/L (3.5-5.1) 3.1 mmol/L (3.5-5.1) Chloride Level 105 mmol/L (98-107) 104 mmol/L (98-107) Carbon Dioxide Level 29 mmol/L (21-32) 30 mmol/L (21-32) Anion Gap 9 (6-14) 7 (6-14) Blood Urea Nitrogen 12 mg/dL (7-20) 12 mg/dL (7-20) Creatinine 0.6 mg/dL (0.6-1.0) 0.6 mg/dL (0.6-1.0) Estimated GFR (Cockcroft-Gault) 95.7 95.7 BUN/Creatinine Ratio 20 (6-20) 20 (6-20) Glucose Level 107 mg/dL (70-99) 102 mg/dL (70-99) Calcium Level 8.3 mg/dL (8.5-10.1) 8.9 mg/dL (8.5-10.1) Phosphorus Level 2.3 mg/dL (2.6-4.7) Magnesium Level 1.7 mg/dL (1.8-2.4) Total Bilirubin 1.8 mg/dL (0.2-1.0) 2.0 mg/dL (0.2-1.0) Aspartate Amino Transf (AST/SGOT) 11 U/L (15-37) 23 U/L (15-37) Alanine Aminotransferase (ALT/SGPT) 17 U/L (14-59) 19 U/L (14-59) Alkaline Phosphatase 57 U/L (46-116) 71 U/L (46-116) Total Protein 5.9 g/dL (6.4-8.2) 7.0 g/dL (6.4-8.2) Albumin 2.5 g/dL (3.4-5.0) 3.1 g/dL (3.4-5.0) Albumin/Globulin Ratio 0.7 (1.0-1.7) 0.8 (1.0-1.7) Assessment and Plan Assessmemt and Plan Problems Medical Problems: (1) Anemia Status: Acute (2) Hemoperitoneum Status: Acute (3) Lactic acidosis Status: Acute (4) Nausea and vomiting Status: Acute (5) Right lower lobe pneumonia Status: Acute (6) Right sided abdominal pain Status: Acute (7) Sepsis Status: Acute Comment Review of Relevant I have reviewed the following items essence (where applicable) has been applied. Medications: Current Medications Medications (Trade) Dose Ordered Sig/Kostas Route PRN Reason Start Time Stop Time Status Last Admin Dose Admin Cefdinir (Omnicef) 300 mg BID PO 09/17/21 21:00 09/18/21 08:47 Doxycycline Hyclate (Vibra-Tab) 100 mg BID PO 09/17/21 21:00 09/18/21 08:47 Justifications for Admission Other Justification Sepsis STERLING ALONZO MD Sep 18, 2021 12:33
[2021-09-18] MEDS ORDERED: POTASSIUM CHLORIDE 20 MEQ TABLET.ER. PO ONE (12:45)
--- NOTE | 2021-09-18 12:53 | PDOC2 ---
[facility] [employer] 09/18/21 1253: CARDIAC CONSULT DATE OF CONSULT Date of Consult DATE: 09/18/21 TIME: 12:29 REASON FOR CONSULT Reason for Consult: [facility]uns of [facility] REFERRING PHYSICIAN Referring Physician: Dr. Ken SOURCE Source: Chart review, Patient HISTORY OF PRESENT ILLNESS HISTORY OF PRESENT ILLNESS This is a 80 yo female who presented secondary to weakness, not feeling "right". Reports she went to gym last Friday and Friday and usual with her friend. [place] well on Friday, but went to bed early as she was feeling more tired. Woke up very tired, weak, fatigued. Family was unable to get in contact with her so they called for a welfare check. EMS found patient at home in bed and she had vomited on herself. She also reports abdominal discomfort and bloating and had developed diarrhea. She was noted to be tachycardic and hypotensive per EMS. Fluid bolus was administered with improvement.Initial CT upon arrival with significant hemoperitoneum with blood seen in the RUQ adjacent to the liver, in the pelvis, and significant blood seen in the lesser sac, surrounding the pancreas and stomach. Initially on non contrast CT there was concern for a liver injury, although this was not seen on contrast imaging. Hgb dropped to 6.8 and she received transfusion x2. Overnight, tele noted with tachyarrhythmia, which prompted this consult. She is feeling better today. She denies any chest, pain, palpitations, dizziness, diaphoresis, or nausea/vomiting. No prior h/o heart disease or arrhythmia. Labs notable for significant hypokalemia and hypomagnesemia. PAST MEDICAL HISTORY Cardiovascular: HTN ENT: Other (glaucoma ) PAST SURGICAL HISTORY Past Surgical History: No pertinent history (eye surgery ) FAMILY HISTORY Family History: Heart Disease, Hypertension SOCIAL HISTORY Smoke: # pack years ALCOHOL: none Drugs: None Lives: Alone CURRENT MEDICATIONS CURRENT MEDICATIONS Current Medications Medications (Trade) Dose Ordered Sig/Kostas Route PRN Reason Start Time Stop Time Status Last Admin Dose Admin Cefdinir (Omnicef) 300 mg BID PO 09/17/21 21:00 09/18/21 08:47 Doxycycline Hyclate (Vibra-Tab) 100 mg BID PO 09/17/21 21:00 09/18/21 08:47 ALLERGIES ALLERGIES: Coded Allergies: No Known Drug Allergies (Unverified , 09/13/21) ROS Review of System 14 point ROS conducted with pertinent positives noted above in HPI PHYSICAL EXAM General: Alert, Oriented X3, Cooperative, No acute distress HEENT: Atraumatic, Mucous membr. moist/pink Lungs: Clear to auscultation Heart: Regular rate (SR/ST) Abdomen: Soft, No tenderness Extremities: No edema, Normal pulses Neuro: Normal speech, Sensation intact Psych/Mental Status: Mental status NL, Mood NL MUSCULOSKELETAL: Osteoarthritic changes both hands VITALS/I&O VITALS/I&O: Vital Signs Date Time Temp Pulse Resp B/P (MAP) Pulse Ox O2 Delivery O2 Flow Rate FiO2 09/18/21 11:00 98.4 114 18 148/88 (108) 95 Room Air 98.4 09/18/21 08:16 2.0 I & O 09/17/21 09/17/21 09/18/21 15:00 23:00 07:00 Intake Total 300 ml 120 ml Output Total 250 ml Balance 50 ml 120 ml LABS Lab: Laboratory Tests Test 09/17/21 13:54 09/18/21 00:01 09/18/21 11:15 White Blood Count 9.1 x10^3/uL (4.0-11.0) 10.6 x10^3/uL (4.0-11.0) Red Blood Count 2.71 x10^6/uL (3.50-5.40) L 3.34 x10^6/uL (3.50-5.40) L Hemoglobin 8.5 g/dL (12.0-15.5) L 10.4 g/dL (12.0-15.5) L Hematocrit 25.6 % (36.0-47.0) L 31.5 % (36.0-47.0) L Mean Corpuscular Volume 94 fL (79-100) 94 fL (79-100) Mean Corpuscular Hemoglobin 32 pg (25-35) 31 pg (25-35) Mean Corpuscular Hemoglobin Concent 33 g/dL (31-37) 33 g/dL (31-37) Red Cell Distribution Width 17.9 % (11.5-14.5) H 17.5 % (11.5-14.5) H Platelet Count 372 x10^3/uL (140-400) 489 x10^3/uL (140-400) H Sodium Level 143 mmol/L (136-145) 141 mmol/L (136-145) Potassium Level 2.9 mmol/L (3.5-5.1) *L 3.1 mmol/L (3.5-5.1) L Chloride Level 105 mmol/L (98-107) 104 mmol/L (98-107) Carbon Dioxide Level 29 mmol/L (21-32) 30 mmol/L (21-32) Anion Gap 9 (6-14) 7 (6-14) Blood Urea Nitrogen 12 mg/dL (7-20) 12 mg/dL (7-20) Creatinine 0.6 mg/dL (0.6-1.0) 0.6 mg/dL (0.6-1.0) Estimated GFR (Cockcroft-Gault) 95.7 95.7 BUN/Creatinine Ratio 20 (6-20) 20 (6-20) Glucose Level 107 mg/dL (70-99) H 102 mg/dL (70-99) H Calcium Level 8.3 mg/dL (8.5-10.1) L 8.9 mg/dL (8.5-10.1) Phosphorus Level 2.3 mg/dL (2.6-4.7) L Magnesium Level 1.7 mg/dL (1.8-2.4) L Total Bilirubin 1.8 mg/dL (0.2-1.0) H 2.0 mg/dL (0.2-1.0) H Aspartate Amino Transferase (AST) 11 U/L (15-37) L 23 U/L (15-37) Alanine Aminotransferase (ALT) 17 U/L (14-59) 19 U/L (14-59) Alkaline Phosphatase 57 U/L (46-116) 71 U/L (46-116) Total Protein 5.9 g/dL (6.4-8.2) L 7.0 g/dL (6.4-8.2) Albumin 2.5 g/dL (3.4-5.0) L 3.1 g/dL (3.4-5.0) L Albumin/Globulin Ratio 0.7 (1.0-1.7) L 0.8 (1.0-1.7) L Laboratory Tests 09/17/21 13:54 09/18/21 11:15 Laboratory Tests 09/18/21 00:01 09/18/21 11:15 ASSESSMENT/PLAN ASSESSMENT/PLAN 1. Hemoperitoneum; etiology unclear. GS following. Bleeding scan without evidence of acute GIB 2. Acute blood loss anemia; s/p transfusion; hgb now stable 3. Tachyarrhythmia; brief bursts of aberrant AFIB vs NSVT. Presently SR/ST. TSH WNL 4. Hypokalemia 5. Hypomagnesemia 6. Hypertension; mildly elevated 7. BRII, hypernatremia; improved s/p IVFs Recommendations Echo to assess LV systolic function Add low-dose BB therapy Monitor telemetry. Consider outpatient event monitor Replace K, Mg Monitor hgb, transfuse as warranted Supportive care YUE SALMON MD 09/18/21 1601: CARDIAC CONSULT ASSESSMENT/PLAN ASSESSMENT/PLAN Patient seen and examined I agree with our nurse practitioners assessment and plan. Hemoperitoneum; etiology unclear. GS following. Bleeding scan without evidence of acute GIB Acute blood loss anemia; s/p transfusion; hgb now stable Tachyarrhythmia; brief bursts of aberrant AFIB vs NSVT. Presently SR/ST. TSH WNL . Replace potassium and magnesium. Continuing to monitor. Echo for LV function. Low-dose beta-blockers. Hypokalemia and Hypomagnesemia. Replace and monitor. Hypertension; mildly elevated BRII, hypernatremia; improved s/p IVFs GUILLE CLAIRE APRN Sep 18, 2021 12:53 YUE SALMON MD Sep 18, 2021 16:01
[2021-09-18] MEDS ORDERED: MAGNESIUM SULFATE 2GM 50 ML IV ONE (13:00)
[2021-09-18 13:19] LABS: CHOLESTEROL/HDL RATIO 2.7
[2021-09-18 15:00] VITALS: BP 143/93
[2021-09-18 19:00] VITALS: BP 146/78
[2021-09-18 23:00] VITALS: BP 158/71
[2021-09-18] MEDS: METOPROLOL TART IMMED RELEASE 25 MG TABLET. PO SCH (23:05)
[2021-09-18] MEDS: FAMOTIDINE 20 MG TABLET. PO SCH (23:08)
[2021-09-18] MEDS: LATANOPROST 0.005% OPHTH SOLUTION 2.5ML BOTTLE. OU SCH (23:10)
[2021-09-19 03:05] VITALS: BP 141/93
[2021-09-19] MEDS: DEXAMETHASONE 0.1% OPHTH SOLUTION 5ML BOTTLE. OD SCH ×5 (06:00→22:09)
[2021-09-19 07:00] VITALS: BP 166/86
[2021-09-19] MEDS: POLYVINYL ALCOHOL 1.4% OPHTH SOLUTION 15ML BOTTLE. OU SCH ×2 (09:00→21:00)
[2021-09-19] MEDS: CEFDINIR 300 MG CAPSULE PO SCH ×2 (09:13→22:11)
[2021-09-19] MEDS: LACTOBACILLUS RHAMNOSUS GG 1 CAPSULE. PO SCH ×2 (09:13→22:10)
[2021-09-19] MEDS: DOXYCYCLINE HYCLATE 100 MG TABLET PO SCH ×2 (09:13→22:11)
[2021-09-19] MEDS: METOPROLOL TART IMMED RELEASE 25 MG TABLET. PO SCH ×2 (09:14→22:11)
[2021-09-19] MEDS: BRIMONIDINE 0.2% OPHTH SOLUTION 5ML BOTTLE. OU SCH ×2 (09:14→22:08)
[2021-09-19 11:00] VITALS: BP 155/91
[2021-09-19 12:57] LABS: CALCIUM 8.6 mg/dL (8.5-10.1); CREATININE 0.6 mg/dL (0.6-1.0); GFR 95.7; MAGNESIUM 1.9 mg/dL (1.8-2.4); POTASSIUM 3.3 mmol/L (3.5-5.1)
--- NOTE | 2021-09-19 12:57 | PDOC ---
[employer] PROGRESS NOTE Date of Service DOS: DATE: 09/19/21 TIME: 12:55 Chief Complaint Chief Complaint Hemoperitoneum of undetermined etiology Sepsis Hemodynamic instability secondary to acute blood loss Acute right lower lobe pneumonia, possible gram negative organisms BRII due to vasomotor nephropathy ATN Lactic acidosis History of right hip replacement History of rectal tumor History of breast cancer Severe protein calorie malnutrtion - likely from recent illness History of Present Illness History of Present Illness Ms Pelletier is an 80 year old female with PMHx HTN brought in by EMS from home c/o generalized abdominal pain, weakness, mild cough and several episodes of nausea and vomiting with weakness. Pain is mostly located in the right upper quadrant and right abdomen. She denies urinary symptoms. She is chronically incontinent of urine, no changes with that today. She began experiencing diarrhea symptoms yesterday as well. She denies hematemesis, melena or hematochezia. She denies having a fever at home, she is afebrile here. She denies recent travel, sick contacts, recent hospitalization. CT abdomen pelvis concerning for hemoperitoneum. Admitted for further care 09/14: Patient seen and examined in the ICU. She appears quite weak ill and probably confused. IR eval - unlikely lacerated liver, likely other source of bleeding into her hemoperitoneum Negative tagged red blood cell scan to see if we can determine where the bleeding is coming from. General surgery consulted. 09/15: CR improved to 0.7, Hb 7, WBC 11 complaining of shortness of breath. COVID 19 PCR negative. With basilar crackles get incentive spirometer Lasix x1 and chest radiograph. Likely developing right lower lobe pneumonia is worsening. 09/16: Hb 6.8. Mag 1.8,. Creatinine improved to 0.6. Breathing improved with furosemide injection large urine output. Tolerating antibiotics well discussed with daughter at bedside we will continue to treat for community-acquired pneumonia and repeat hemogram in the morning. Patient is overall feeling improved 09/17 Patient evaluated examined at bedside. Reported having some cough overnight. Does not need home oxygen based upon walk today. We'll recheck hemoglobin again this afternoon. Patient was able to provide a stool sample. We'll follow up with these results. 09/18 Patient evaluated examined at bedside. Stool occult negative yesterday. Overnight had multiple runs of V. tach. Had been having a few beats of it on previous nights but was having extended runs last night. Cardiology consulted. Hemoglobin stabilized. will follow up after seen by cardiology 09/19 Evaluate examined at bedside. Doing well with metoprolol no side effects according to her. Echo performed this morning result pending. Eating lunch when seen. No major complaints. Likely discharge tomorrow morning. Vitals/I&O Vitals/I&O: Vital Signs Date Time Temp Pulse Resp B/P (MAP) Pulse Ox O2 Delivery O2 Flow Rate FiO2 09/19/21 11:00 98.3 89 18 155/91 (112) 95 Room Air 98.3 09/18/21 08:16 2.0 I & O 09/18/21 09/18/21 09/19/21 15:00 23:00 07:00 Output Total 650 ml Balance -650 ml Physical Exam General: Alert, Oriented X3, Cooperative, No acute distress Heart: Regular rate (SR/ST) Lungs: Clear Abdomen: Soft, No tenderness Extremities: No edema, Normal pulses Skin: No significant lesion Assessment and Plan Assessmemt and Plan Problems Medical Problems: (1) Anemia Status: Acute (2) Hemoperitoneum Status: Acute (3) Lactic acidosis Status: Acute (4) Nausea and vomiting Status: Acute (5) Right lower lobe pneumonia Status: Acute (6) Right sided abdominal pain Status: Acute (7) Sepsis Status: Acute Comment Review of Relevant I have reviewed the following items essence (where applicable) has been applied. Medications: Current Medications Medications (Trade) Dose Ordered Sig/Kostas Route PRN Reason Start Time Stop Time Status Last Admin Dose Admin Magnesium Sulfate 50 ml @ 25 mls/hr 1X ONCE IV 09/18/21 13:00 09/18/21 14:59 DC 09/18/21 14:21 Metoprolol Tartrate (Lopressor) 12.5 mg BID PO 09/18/21 21:00 09/19/21 09:14 Justifications for Admission Other Justification Sepsis STERLING ALONZO MD Sep 19, 2021 12:57
[2021-09-19 13:21] LABS: HEMATOCRIT 29.9 % (36.0-47.0); HEMOGLOBIN 9.9 g/dL (12.0-15.5); RED BLOOD COUNT 3.14 x10^6/uL (3.50-5.40); RED CELL DISTRIBUTION WIDTH 17.8 % (11.5-14.5); WHITE BLOOD COUNT 11.6 x10^3/uL (4.0-11.0)
--- NOTE | 2021-09-19 14:04 | CARD ---
MR#: [id number] Date of Study: 09/19/2021 Ordering Physician: GUILLE CLAIRE, Referring Physician: GUILLE CLAIRE, Tech: Therese Ocampo, [facility] APPROVED REPORT EXAM: Two-dimensional and M-mode echocardiogram with Doppler and color Doppler. Other Information Quality : AverageHR: 106bpm INDICATION Arrhythmia Tachy arrhythmia 2D DIMENSIONS Left Atrium(2D)3.2 (1.6-4.0cm)IVSd1.0 (0.7-1.1cm) Aortic Root(2D)2.9 (2.0-3.7cm)LVDd5.4 (3.9-5.9cm) LVOT Diameter2.1 (1.8-2.4cm)PWd1.0 (0.7-1.1cm) LVDs4.0 (2.5-4.0cm)FS (%) 25.8 % SV72.2 mlLVEF(%)50.3 (>50%) Aortic Valve AoV Peak Jorge.128.7cm/sAoV VTI25.2cm AO Peak GR.6.6mmHgLVOT VTI 19.02cm AO Mean GR.4mmHg Mitral Valve MV E Peak Gr.7mmHgMV E Mean Gr.3mmHg TDI Lateral E' P. V6.11cm/sMedial E' P. V8.37cm/s Tricuspid Valve TR P. [id number] TR Peak Gr.[id number] LEFT VENTRICLE The left ventricle is normal size. There is borderline to mild concentric left ventricular hypertroph y. The left ventricular systolic function is normal. The Ejection Fraction is 55-60%. There is normal LV segmental wall motion. Transmitral Doppler flow pattern is Grade I-abnormal relaxation pattern. RIGHT VENTRICLE The right ventricle is normal size. There is normal right ventricular wall thickness. The right ventr icular systolic function is normal. ATRIA The left atrium size is normal. The right atrium size is normal. The interatrial septum is intact wit h no evidence for an atrial septal defect or patent foramen ovale as noted on 2-D or Doppler imaging. AORTIC VALVE The aortic valve is normal in structure and function. Doppler and Color Flow revealed no significant aortic regurgitation. There is no significant aortic valvular stenosis. Calculated aortic valve area is 2.62 cm2 with maximum pressure gradient of 9 mmHg and mean pressure gradient of 4 mmHg. MITRAL VALVE The mitral valve is normal in structure and function. There is no evidence of mitral valve prolapse. There is no mitral valve stenosis. Doppler and Color-flow revealed trace mitral regurgitation. TRICUSPID VALVE The tricuspid valve is normal in structure and function. Doppler and Color Flow revealed trace tricus pid regurgitation with an estimated PAP of 46 mmHg. There is no tricuspid valve stenosis. PULMONIC VALVE The pulmonic valve is not well visualized. Doppler and Color Flow revealed no pulmonic valvular regur gitation. GREAT VESSELS The aortic root is normal in size. The ascending aorta is Mildly dilated measuring 3.62 cm. The IVC i s normal in size and collapses >50% with inspiration. PERICARDIAL EFFUSION There is no evidence of significant pericardial effusion. Critical Notification Critical Value: No <Conclusion> The left ventricular systolic function is normal. The Ejection Fraction is 55-60%. There is normal LV segmental wall motion. Transmitral Doppler flow pattern is Grade I-abnormal relaxation pattern. Trace mitral regurgitation. Trace tricuspid regurgitation with an estimated PAP of 46 mmHg. There is no evidence of significant pericardial effusion. Signed by : Gary Lopez, Electronically Approved : 09/19/2021 14:04:24
[2021-09-19 14:38] VITALS: BP 146/86
--- NOTE | 2021-09-19 17:04 | PDOC ---
PROGRESS NOTES Date of Service DATE: 09/19/21 TIME: 17:02 Subjective Subjective Patient seen and examined Objective Objective Vital Signs Date Time Temp Pulse Resp B/P (MAP) Pulse Ox O2 Delivery O2 Flow Rate FiO2 09/19/21 14:38 98.1 103 18 146/86 (106) 94 Room Air 98.1 09/18/21 08:16 2.0 Intake and Output 09/19/21 07:00 Output Total 650 ml Balance -650 ml Output Urine Total 650 ml # Voids 1 # Bowel Movements 1 Physical Exam Abdomen: Normal bowel sounds Heart: Other (Regular rhythm rate of 100) General: mild distress Lungs: Clear to auscultation Assessment Assessment Problems Medical Problems: (1) Anemia Status: Acute (2) Hemoperitoneum Status: Acute (3) Lactic acidosis Status: Acute (4) Nausea and vomiting Status: Acute (5) Right lower lobe pneumonia Status: Acute (6) Right sided abdominal pain Status: Acute (7) Sepsis Status: Acute Hemoperitoneum; etiology unclear. GS following. Bleeding scan without evidence of acute GIB Acute blood loss anemia; s/p transfusion; hgb now stable morning H&H of 9.9 and 29.9. Tachyarrhythmia; brief bursts of aberrant AFIB vs NSVT. Presently SR/ST. TSH WNL. Echo shows normal LV systolic function, trace TR and up PAP of 46 mmHg. Continuing present treatment. Hypokalemia and Hypomagnesemia. Replace and monitor. Morning potassium of 3.3. Hypertension; improved. BRII, hypernatremia; improved s/p IVFs. Morning creatinine of 0.6. Comment Review of Relevant I have reviewed the following items essence (where applicable) has been applied. Labs Laboratory Tests Test 09/18/21 00:01 09/18/21 11:15 09/19/21 11:58 Sodium Level 143 mmol/L (136-145) 141 mmol/L (136-145) 141 mmol/L (136-145) Potassium Level 2.9 mmol/L (3.5-5.1) 3.1 mmol/L (3.5-5.1) 3.3 mmol/L (3.5-5.1) Chloride Level 105 mmol/L (98-107) 104 mmol/L (98-107) 104 mmol/L (98-107) Carbon Dioxide Level 29 mmol/L (21-32) 30 mmol/L (21-32) 29 mmol/L (21-32) Anion Gap 9 (6-14) 7 (6-14) 8 (6-14) Blood Urea Nitrogen 12 mg/dL (7-20) 12 mg/dL (7-20) 12 mg/dL (7-20) Creatinine 0.6 mg/dL (0.6-1.0) 0.6 mg/dL (0.6-1.0) 0.6 mg/dL (0.6-1.0) Estimated GFR (Cockcroft-Gault) 95.7 95.7 95.7 BUN/Creatinine Ratio 20 (6-20) 20 (6-20) Glucose Level 107 mg/dL (70-99) 102 mg/dL (70-99) 91 mg/dL (70-99) Calcium Level 8.3 mg/dL (8.5-10.1) 8.9 mg/dL (8.5-10.1) 8.6 mg/dL (8.5-10.1) Phosphorus Level 2.3 mg/dL (2.6-4.7) Magnesium Level 1.7 mg/dL (1.8-2.4) 1.8 mg/dL (1.8-2.4) 1.9 mg/dL (1.8-2.4) Total Bilirubin 1.8 mg/dL (0.2-1.0) 2.0 mg/dL (0.2-1.0) Aspartate Amino Transf (AST/SGOT) 11 U/L (15-37) 23 U/L (15-37) Alanine Aminotransferase (ALT/SGPT) 17 U/L (14-59) 19 U/L (14-59) Alkaline Phosphatase 57 U/L (46-116) 71 U/L (46-116) Total Protein 5.9 g/dL (6.4-8.2) 7.0 g/dL (6.4-8.2) Albumin 2.5 g/dL (3.4-5.0) 3.1 g/dL (3.4-5.0) Albumin/Globulin Ratio 0.7 (1.0-1.7) 0.8 (1.0-1.7) Triglycerides Level 74 mg/dL (0-150) Cholesterol Level 147 mg/dL (0-200) LDL Cholesterol, Calculated 77 mg/dL (0-100) VLDL Cholesterol, Calculated 15 mg/dL (0-40) Non-HDL Cholesterol Calculated 92 mg/dL (0-129) HDL Cholesterol 55 mg/dL (40-60) Cholesterol/HDL Ratio 2.7 White Blood Count 10.6 x10^3/uL (4.0-11.0) 11.6 x10^3/uL (4.0-11.0) Red Blood Count 3.34 x10^6/uL (3.50-5.40) 3.14 x10^6/uL (3.50-5.40) Hemoglobin 10.4 g/dL (12.0-15.5) 9.9 g/dL (12.0-15.5) Hematocrit 31.5 % (36.0-47.0) 29.9 % (36.0-47.0) Mean Corpuscular Volume 94 fL (79-100) 95 fL (79-100) Mean Corpuscular Hemoglobin 31 pg (25-35) 32 pg (25-35) Mean Corpuscular Hemoglobin Concent 33 g/dL (31-37) 33 g/dL (31-37) Red Cell Distribution Width 17.5 % (11.5-14.5) 17.8 % (11.5-14.5) Platelet Count 489 x10^3/uL (140-400) 523 x10^3/uL (140-400) Laboratory Tests Test 09/19/21 11:58 White Blood Count 11.6 x10^3/uL (4.0-11.0) Red Blood Count 3.14 x10^6/uL (3.50-5.40) Hemoglobin 9.9 g/dL (12.0-15.5) Hematocrit 29.9 % (36.0-47.0) Mean Corpuscular Volume 95 fL (79-100) Mean Corpuscular Hemoglobin 32 pg (25-35) Mean Corpuscular Hemoglobin Concent 33 g/dL (31-37) Red Cell Distribution Width 17.8 % (11.5-14.5) Platelet Count 523 x10^3/uL (140-400) Sodium Level 141 mmol/L (136-145) Potassium Level 3.3 mmol/L (3.5-5.1) Chloride Level 104 mmol/L (98-107) Carbon Dioxide Level 29 mmol/L (21-32) Anion Gap 8 (6-14) Blood Urea Nitrogen 12 mg/dL (7-20) Creatinine 0.6 mg/dL (0.6-1.0) Estimated GFR (Cockcroft-Gault) 95.7 Glucose Level 91 mg/dL (70-99) Calcium Level 8.6 mg/dL (8.5-10.1) Magnesium Level 1.9 mg/dL (1.8-2.4) Microbiology 09/13/21 Urine Culture - Final, Complete 09/13/21 Blood Culture - Final, Complete NO GROWTH AFTER 5 DAYS Medications Current Medications Sodium Chloride 1,000 ml @ 1,000 mls/hr 1X ONCE IV Last administered on 09/13/21at 09:45; Start 09/13/21 at 09:45; Stop 09/13/21 at 10:44; Status DC Piperacillin Sod/ Tazobactam Sod 3.375 gm/Sodium Chloride 50 ml @ 100 mls/hr 1X ONCE IV Last administered on 09/13/21at 10:22; Start 09/13/21 at 10:00; Stop 09/13/21 at 10:29; Status DC Sodium Chloride 1,000 ml @ 1,000 mls/hr 1X ONCE IV Last administered on 09/13/21at 10:23; Start 09/13/21 at 10:15; Stop 09/13/21 at 11:14; Status DC Fentanyl Citrate (Fentanyl 2ml Vial) 50 mcg 1X ONCE IVP Last administered on 09/13/21at 11:11; Start 09/13/21 at 11:00; Stop 09/13/21 at 11:01; Status DC Ondansetron HCl (Zofran) 4 mg 1X ONCE IVP Last administered on 09/13/21at 11:0 9; Start 09/13/21 at 11:00; Stop 09/13/21 at 11:01; Status DC Sennosides (Senna) 17.2 mg PRN BID PRN PO CONSTIPATION Last administered on 09/17/21at 17:30; Start 09/13/21 at 12:15 Docusate Sodium (Colace) 100 mg PRN DAILY PRN PO HARD STOOLS Last administered on 09/17/21at 17:30; Start 09/13/21 at 12:15 Ondansetron HCl (Zofran) 4 mg PRN Q6HRS PRN IVP NAUSEA/VOMITING, 1st CHOICE; Start 09/13/21 at 12:15 Dextrose (Dextrose 50%-Water Syringe) 12.5 gm PRN Q15MIN PRN IV SEE COMMENTS; Start 09/13/21 at 12:15 Sodium Chloride 1,000 ml @ 100 mls/hr Q10H IV Last administered on 09/15/21at 04:26; Start 09/13/21 at 12:15; Stop 09/15/21 at 08:24; Status DC Acetaminophen (Tylenol) 650 mg PRN Q4HRS PRN PO TEMP OVER 100.4F OR MILD PAIN; Start 09/13/21 at 12:15 Lorazepam (Ativan) 0.5 mg PRN Q6HRS PRN PO ANXIETY / AGITATION; Start 09/13/21 at 12:15; Stop 09/15/21 at 08:24; Status DC Lorazepam (Ativan Inj) 0.25 mg PRN Q4HRS PRN IV ANXIETY / AGITATION; Start 09/13/21 at 12:15; Stop 09/15/21 at 08:24; Status DC Vancomycin HCl (Vanco Per Pharmacy) 1 each PRN DAILY PRN MC SEE COMMENTS Last administered on 09/15/21at 17:22; Start 09/13/21 at 12:15; Stop 09/17/21 at 09:55; Status DC Enoxaparin Sodium (Lovenox 30mg Syringe) 30 mg DAILY SQ ; Start 09/14/21 at 09:00; Stop 09/13/21 at 13:42; Status DC Famotidine (Pepcid) 20 mg QHS PO Last administered on 09/18/21at 23:08; Start 09/13/21 at 21:00 Prochlorperazine Edisylate (Compazine) 10 mg PRN Q6HRS PRN IV NAUSEA/VOMITING, 2nd CHOICE; Start 09/13/21 at 12:15; Stop 09/15/21 at 08:24; Status DC Diphenhydramine HCl (Benadryl) 25 mg PRN Q6HRS PRN IVP ITCHING; Start 09/13/21 at 12:15; Stop 09/15/21 at 08:24; Status DC Diphenhydramine HCl (Benadryl) 25 mg PRN Q6HRS PRN PO ITCHING; Start 09/13/21 at 12:15; Stop 09/15/21 at 08:24; Status DC Diphenhydramine HCl (Benadryl) 25 mg PRN QHS PRN PO INSOMNIA, 1st CHOICE; Start 09/13/21 at 12:15; Stop 09/15/21 at 08:24; Status DC Zolpidem Tartrate (Ambien) 2.5 mg PRN QHS PRN PO INSOMNIA, 2nd CHOICE; Start 09/13/21 at 12:15; Stop 09/15/21 at 08:24; Status DC Vancomycin HCl 1.25 gm/Sodium Chloride 250 ml @ 166.667 mls/hr 1X ONCE IV Last administered on 09/13/21at 16:54; Start 09/13/21 at 13:30; Stop 09/13/21 at 14:59; Status DC Iohexol (Omnipaque 300 Mg/ml) 60 ml 1X ONCE IV Last administered on 09/13/21at 14:05; Start 09/13/21 at 13:45; Stop 09/13/21 at 13:46; Status DC Info (CONTRAST GIVEN -- Rx MONITORING) 1 each PRN DAILY PRN MC SEE COMMENTS; Start 09/13/21 at 13:45; Stop 09/15/21 at 13:44; Status DC Piperacillin Sod/ Tazobactam Sod 2.25 gm/Sodium Chloride 50 ml @ 100 mls/hr Q6HRS IV Last administered on 09/17/21at 05:29; Start 09/13/21 at 18:00; Stop 09/17/21 at 09:55; Status DC Fentanyl Citrate (Fentanyl 2ml Vial) 50 mcg 1X ONCE IVP Last administered on 09/13/21at 15:43; Start 09/13/21 at 15:15; Stop 09/13/21 at 15:16; Status DC Ondansetron HCl (Zofran) 4 mg 1X ONCE IVP ; Start 09/13/21 at 15:15; Stop 09/13/21 at 15:16; Status DC Vancomycin HCl 750 mg/Sodium Chloride 250 ml @ 250 mls/hr Q24H IV Last administered on 09/14/21at 17:58; Start 09/14/21 at 17:00; Stop 09/15/21 at 17:16; Status DC Vancomycin HCl (Vancomycin Trough Level) 1 each 1X ONCE MC Last administered on 09/15/21at 16:30; Start 09/15/21 at 16:30; Stop 09/15/21 at 16:31; Status DC Brimonidine Tartrate (Alphagan) 1 drop BID OU Last administered on 09/19/21at 09:14; Start 09/14/21 at 11:00 Latanoprost (Xalatan) 1 drop QHS OD Last administered on 09/15/21at 20:33; Start 09/14/21 at 21:00; Stop 09/16/21 at 16:23; Status DC Heparin Sodium (Porcine) (HEPARIN for NUC MED) 100 unit 1X ONCE IV ; Start 09/14/21 at 10:30; Stop 09/14/21 at 10:34; Status DC Glycerin/ Hypromellose/ Polyethylene (Artificial Tears) 1 drop BID OU Last administered on 09/18/21at 08:48; Start 09/14/21 at 11:30 Dexamethasone Sodium Phosphate (Maxidex) 1 drop Q4HRS W/A OS Last administered on 09/14/21at 21:12; Start 09/14/21 at 22:00; Stop 09/14/21 at 23:21; Status DC Dexamethasone Sodium Phosphate (Maxidex) 1 drop Q4HRS W/A OD Last administered on 09/19/21at 09:16; Start 09/14/21 at 23:30 Fentanyl Citrate (Fentanyl 2ml Vial) 25 mcg PRN Q3HRS PRN IVP SEVERE PAIN 7-10; Start 09/15/21 at 08:30 Furosemide (Lasix) 20 mg 1X ONCE IVP Last administered on 09/15/21at 10:19; Start 09/15/21 at 09:45; Stop 09/15/21 at 09:54; Status DC Vancomycin HCl 750 mg/Sodium Chloride 250 ml @ 250 mls/hr Q12H IV Last administered on 09/17/21at 05:58; Start 09/15/21 at 18:00; Stop 09/17/21 at 09:55; Status DC Magnesium Sulfate 50 ml @ 25 mls/hr 1X ONCE IV Last administered on 09/16/21at 07:59; Start 09/16/21 at 08:00; Stop 09/16/21 at 09:59; Status DC Latanoprost (Xalatan) 1 drop QHS OU Last administered on 09/18/21at 23:10; Start 09/16/21 at 16:23 Lactobacillus Rhamnosus (Culturelle) 1 cap BID PO Last administered on 09/19/21at 09:13; Start 09/16/21 at 21:00 Potassium Chloride (Klor-Con) 40 meq 1X ONCE PO Last administered on 09/17/21at 11:14; Start 09/17/21 at 10:30; Stop 09/17/21 at 10:31; Status DC Cefdinir (Omnicef) 300 mg BID PO Last administered on 09/19/21at 09:13; Start 09/17/21 at 21:00 Doxycycline Hyclate (Vibra-Tab) 100 mg BID PO Last administered on 09/19/21at 09:13; Start 09/17/21 at 21:00 Guaifenesin/ Codeine Phosphate (Robitussin Ac) 5 ml PRN Q6HRS PRN PO COUGH Last administered on 09/17/21at 22:05; Start 09/17/21 at 11:00 Hydralazine HCl (Apresoline Inj) 10 mg PRN Q4HRS PRN IVP ELEVATED BP, SEE COMMENTS; Start 09/18/21 at 03:15 Potassium Chloride (Klor-Con) 40 meq 1X ONCE PO Last administered on 09/18/21at 14:24; Start 09/18/21 at 12:45; Stop 09/18/21 at 12:54; Status DC Magnesium Sulfate 50 ml @ 25 mls/hr 1X ONCE IV Last administered on 09/18/21at 14:21; Start 09/18/21 at 13:00; Stop 09/18/21 at 14:59; Status DC Metoprolol Tartrate (Lopressor) 12.5 mg BID PO Last administered on 09/19/21at 09:14; Start 09/18/21 at 21:00 Active Scripts Active Reported Vyzulta (Latanoprostene Bunod) 5 Ml Drops 1 Drop EACHEYE QHS 30 Days Rhopressa (Netarsudil Mesylate) 2.5 Ml Drops 1 Drop EACHEYE QHS 30 Days Brimonidine Tartrate 5 Ml Drops 1 Drop EACHEYE BID Xalatan (Latanoprost) 2.5 Ml Drops 1 Drop RIGHTEYE QHS Vitals/I & O Vital Sign - Last 24 Hours 09/18/21 09/18/21 09/18/21 09/18/21 19:00 20:00 23:00 23:05 Temp 98.4 98.4 98.4 98.4 Pulse 85 106 85 Resp 20 20 B/P (MAP) 146/78 (100) 158/71 (100) 146/78 Pulse Ox 91 92 O2 Delivery Room Air Room Air Room Air 09/19/21 09/19/21 09/19/21 09/19/21 03:05 07:00 08:00 09:14 Temp 98.9 98.4 98.9 98.4 Pulse 99 109 109 Resp 20 18 B/P (MAP) 141/93 (109) 166/86 (112) 166/86 Pulse Ox 91 94 O2 Delivery Room Air Room Air Room Air 09/19/21 09/19/21 11:00 14:38 Temp 98.3 98.1 98.3 98.1 Pulse 89 103 Resp 18 18 B/P (MAP) 155/91 (112) 146/86 (106) Pulse Ox 95 94 O2 Delivery Room Air Room Air Intake and Output 09/18/21 09/18/21 09/19/21 15:00 23:00 07:00 Output Total 650 ml Balance -650 ml Justifications for Admission Other Justification Sepsis Nutrition Consultation Dietary Evaluation: Recommendations by RD: Dietary education by RD, Increase Calorie Intake, Protein supplementation Comments: REC Regular diet with strawbery Ensure oral nutrition supplement tid Expected Outcomes/Goals: to meet >75% est nutr needs- goal ongoing Malnutrition Findings: Food and Nutrition Intake (Mod: <75% est energy req 7days Body Fat Depletion (Non Severe: Mod to Severe Weight Status: Underweight YUE SALMON MD Sep 19, 2021 17:04
[2021-09-19 19:00] VITALS: BP 172/83
[2021-09-19] MEDS: LATANOPROST 0.005% OPHTH SOLUTION 2.5ML BOTTLE. OU SCH (22:09)
[2021-09-19] MEDS: FAMOTIDINE 20 MG TABLET. PO SCH (22:11)
[2021-09-19 23:00] VITALS: BP 156/81
[2021-09-20 03:00] VITALS: BP 169/90
[2021-09-20] MEDS: DEXAMETHASONE 0.1% OPHTH SOLUTION 5ML BOTTLE. OD SCH ×3 (06:00→14:00)
[2021-09-20 07:00] VITALS: BP 163/93
[2021-09-20] MEDS: LACTOBACILLUS RHAMNOSUS GG 1 CAPSULE. PO SCH (09:00)
[2021-09-20] MEDS: METOPROLOL TART IMMED RELEASE 25 MG TABLET. PO SCH (09:53)
[2021-09-20] MEDS: DOXYCYCLINE HYCLATE 100 MG TABLET PO SCH (09:53)
[2021-09-20] MEDS: POLYVINYL ALCOHOL 1.4% OPHTH SOLUTION 15ML BOTTLE. OU SCH (09:54)
[2021-09-20] MEDS: BRIMONIDINE 0.2% OPHTH SOLUTION 5ML BOTTLE. OU SCH (09:54)
[2021-09-20] MEDS: CEFDINIR 300 MG CAPSULE PO SCH (09:54)
[2021-09-20] MEDS ORDERED: METO25TA4 PO (10:42)
--- NOTE | 2021-09-20 10:49 | PDOC3 ---
[facility]-Discharge Summary Date of Admission: Date of Admission: Sep 13, 2021 Date of Discharge: Date of Discharge: Sep 20, 2021 Admission Diagnosis: Problems: (1) Hemoperitoneum (2) Anemia (3) Right lower lobe pneumonia Hospital Course: Hospital Course: Chief Complaint Hemoperitoneum of undetermined etiology Sepsis Hemodynamic instability secondary to acute blood loss Acute right lower lobe pneumonia, possible gram negative organisms BRII due to vasomotor nephropathy ATN Lactic acidosis History of right hip replacement History of rectal tumor History of breast cancer Severe protein calorie malnutrtion - likely from recent illness History of Present Illness History of Present Illness Ms Pelletier is an 80 year old female with PMHx HTN brought in by EMS from home c/o generalized abdominal pain, weakness, mild cough and several episodes of nausea and vomiting with weakness. Pain is mostly located in the right upper quadrant and right abdomen. She denies urinary symptoms. She is chronically incontinent of urine, no changes with that today. She began experiencing diarrhea symptoms yesterday as well. She denies hematemesis, melena or hematochezia. She denies having a fever at home, she is afebrile here. She denies recent travel, sick contacts, recent hospitalization. CT abdomen pelvis concerning for hemoperitoneum. Admitted for further care 09/14: Patient seen and examined in the ICU. She appears quite weak ill and probably confused. IR eval - unlikely lacerated liver, likely other source of bleeding into her hemoperitoneum Negative tagged red blood cell scan to see if we can determine where the bleeding is coming from. General surgery consulted. 09/15: CR improved to 0.7, Hb 7, WBC 11 complaining of shortness of breath. COVID 19 PCR negative. With basilar crackles get incentive spirometer Lasix x1 and chest radiograph. Likely developing right lower lobe pneumonia is worsening. 09/16: Hb 6.8. Mag 1.8,. Creatinine improved to 0.6. Breathing improved with furosemide injection large urine output. Tolerating antibiotics well discussed with daughter at bedside we will continue to treat for community-acquired pneumonia and repeat hemogram in the morning. Patient is overall feeling improved 09/17 Patient evaluated examined at bedside. Reported having some cough overnight. Does not need home oxygen based upon walk today. We'll recheck hemoglobin again this afternoon. Patient was able to provide a stool sample. We'll follow up with these results. 09/18 Patient evaluated examined at bedside. Stool occult negative yesterday. Overnight had multiple runs of V. tach. Had been having a few beats of it on previous nights but was having extended runs last night. Cardiology consulted. Hemoglobin stabilized. will follow up after seen by cardiology 09/19 Evaluate examined at bedside. Doing well with metoprolol no side effects according to her. Echo performed this morning result pending. Eating lunch when seen. No major complaints. Likely discharge tomorrow morning. 09/20 Valuate examined at bedside. Doing well no complaints. Can discharge today from my perspective. Greater than 30 minutes spent on discharge. 17 minutes advance care planning. Disposition: Disposition/Orders: D/C to Home Activity: Activity: Resume previous activity Diet: Diet: Cardiac Medications: Home Meds Active Scripts Metoprolol Tartrate (METOPROLOL TARTRATE) 25 Mg Tablet, 12.5 MG PO BID for htn for 30 Days, #30 TAB Prov:STERLING ALONZO MD 09/20/21 Reported Medications Latanoprostene Bunod (Vyzulta) 5 Ml Drops, 1 DROP EACHEYE QHS for glaucoma for 30 Days, #5 ML 0 Refills 09/14/21 Netarsudil Mesylate (Rhopressa) 2.5 Ml Drops, 1 DROP EACHEYE QHS for glaucoma for 30 Days, ML 0 Refills 09/14/21 Brimonidine Tartrate (BRIMONIDINE TARTRATE) 5 Ml Drops, 1 DROP EACHEYE BID for Glaucoma, #10 ML 0 Refills 09/14/21 Latanoprost (XALATAN) 2.5 Ml Drops, 1 DROP RIGHTEYE QHS for GLAUCOMA, ML 09/14/21 Scheduled Brimonidine Tartrate (Brimonidine Tartrate), 1 DROP EACHEYE BID, (Reported) Latanoprost (Xalatan), 1 DROP RIGHTEYE QHS, (Reported) Latanoprostene Bunod (Vyzulta), 1 DROP EACHEYE QHS, (Reported) Metoprolol Tartrate (Metoprolol Tartrate), 12.5 MG PO BID Netarsudil Mesylate (Rhopressa), 1 DROP EACHEYE QHS, (Reported) Justicifation of Admission Dx: Justifications for Admission: Justification of Admission Dx: N/A STERLING ALONZO MD Sep 20, 2021 10:49
[2021-09-20 11:00] VITALS: BP 133/75
[2021-09-20] MEDS ORDERED: BENZ-8 PO (11:00)
[2021-09-20] MEDS: guaiFENesin/CODEINE 100mg/10mg 5 ML LIQUID PO PRN (11:04)
[2021-09-20] MEDS ORDERED: BENZONATATE 100 MG CAPSULE. PO SCH (12:00)
--- NOTE | 2021-09-20 12:33 | NUR ---
SW following. Discussed with RN, discharge order for home with self care. RN advised no SW needs.
[2021-09-20 15:00] VITALS: BP 144/96
--- NOTE | 2021-09-20 16:00 | PDOC ---
PROGRESS NOTES Date of Service DATE: 09/20/21 TIME: 15:57 Subjective Subjective Patient seen and examined Objective Objective Vital Signs Date Time Temp Pulse Resp B/P (MAP) Pulse Ox O2 Delivery O2 Flow Rate FiO2 09/20/21 15:00 99.3 101 18 144/96 (112) 97 Room Air 99.3 09/18/21 08:16 2.0 Intake and Output 09/20/21 07:00 Intake Total 440 ml Output Total 2 ml Balance 438 ml Intake Oral 440 ml Output Urine Total 2 ml # Bowel Movements 1 Physical Exam Abdomen: Normal bowel sounds Heart: Other (Regular rhythm, rate 96) General: No acute distress Lungs: Other (Minimally decreased breath sounds) Assessment Assessment Problems Medical Problems: (1) Anemia Status: Acute (2) Hemoperitoneum Status: Acute (3) Lactic acidosis Status: Acute (4) Nausea and vomiting Status: Acute (5) Right lower lobe pneumonia Status: Acute (6) Right sided abdominal pain Status: Acute (7) Sepsis Status: Acute Hemoperitoneum; etiology unclear. GS following. Bleeding scan without evidence of acute GIB Acute blood loss anemia; s/p transfusion; hgb now stable 09/19 morning H&H of 9.9 and 29.9. Tachyarrhythmia; brief bursts of aberrant AFIB vs NSVT. Presently SR/ST. TSH WNL. Echo shows normal LV systolic function, trace TR and up PAP of 46 mmHg. Continuing present treatment. Outpatient follow-up. Hypokalemia and Hypomagnesemia. Replace and monitor. 09/19 potassium of 3.3. Hypertension; improved. BRII, hypernatremia; improved s/p IVFs. 09/19 creatinine of 0.6. Comment Review of Relevant I have reviewed the following items essence (where applicable) has been applied. Labs Laboratory Tests Test 09/19/21 11:58 White Blood Count 11.6 x10^3/uL (4.0-11.0) Red Blood Count 3.14 x10^6/uL (3.50-5.40) Hemoglobin 9.9 g/dL (12.0-15.5) Hematocrit 29.9 % (36.0-47.0) Mean Corpuscular Volume 95 fL (79-100) Mean Corpuscular Hemoglobin 32 pg (25-35) Mean Corpuscular Hemoglobin Concent 33 g/dL (31-37) Red Cell Distribution Width 17.8 % (11.5-14.5) Platelet Count 523 x10^3/uL (140-400) Sodium Level 141 mmol/L (136-145) Potassium Level 3.3 mmol/L (3.5-5.1) Chloride Level 104 mmol/L (98-107) Carbon Dioxide Level 29 mmol/L (21-32) Anion Gap 8 (6-14) Blood Urea Nitrogen 12 mg/dL (7-20) Creatinine 0.6 mg/dL (0.6-1.0) Estimated GFR (Cockcroft-Gault) 95.7 Glucose Level 91 mg/dL (70-99) Calcium Level 8.6 mg/dL (8.5-10.1) Magnesium Level 1.9 mg/dL (1.8-2.4) Microbiology 09/13/21 Urine Culture - Final, Complete 09/13/21 Blood Culture - Final, Complete NO GROWTH AFTER 5 DAYS Medications Current Medications Sodium Chloride 1,000 ml @ 1,000 mls/hr 1X ONCE IV Last administered on 09/13/21at 09:45; Start 09/13/21 at 09:45; Stop 09/13/21 at 10:44; Status DC Piperacillin Sod/ Tazobactam Sod 3.375 gm/Sodium Chloride 50 ml @ 100 mls/hr 1X ONCE IV Last administered on 09/13/21at 10:22; Start 09/13/21 at 10:00; Stop 09/13/21 at 10:29; Status DC Sodium Chloride 1,000 ml @ 1,000 mls/hr 1X ONCE IV Last administered on 09/13/21at 10:23; Start 09/13/21 at 10:15; Stop 09/13/21 at 11:14; Status DC Fentanyl Citrate (Fentanyl 2ml Vial) 50 mcg 1X ONCE IVP Last administered on 09/13/21at 11:11; Start 09/13/21 at 11:00; Stop 09/13/21 at 11:01; Status DC Ondansetron HCl (Zofran) 4 mg 1X ONCE IVP Last administered on 09/13/21at 11:09; Start 09/13/21 at 11:00; Stop 09/13/21 at 11:01; Status DC Sennosides (Senna) 17.2 mg PRN BID PRN PO CONSTIPATION Last administered on 09/17/21at 17:30; Start 09/13/21 at 12:15 Docusate Sodium (Colace) 100 mg PRN DAILY PRN PO HARD STOOLS Last administered on 09/17/21at 17:30; Start 09/13/21 at 12:15 Ondansetron HCl (Zofran) 4 mg PRN Q6HRS PRN IVP NAUSEA/VOMITING, 1st CHOICE; Start 09/13/21 at 12:15 Dextrose (Dextrose 50%-Water Syringe) 12.5 gm PRN Q15MIN PRN IV SEE COMMENTS; Start 09/13/21 at 12:15 Sodium Chloride 1,000 ml @ 100 mls/hr Q10H IV Last administered on 09/15/21at 04:26; Start 09/13/21 at 12:15; Stop 09/15/21 at 08:24; Status DC Acetaminophen (Tylenol) 650 mg PRN Q4HRS PRN PO TEMP OVER 100.4F OR MILD PAIN; Start 09/13/21 at 12:15 Lorazepam (Ativan) 0.5 mg PRN Q6HRS PRN PO ANXIETY / AGITATION; Start 09/13/21 at 12:15; Stop 09/15/21 at 08:24; Status DC Lorazepam (Ativan Inj) 0.25 mg PRN Q4HRS PRN IV ANXIETY / AGITATION; Start 09/13/21 at 12:15; Stop 09/15/21 at 08:24; Status DC Vancomycin HCl (Vanco Per Pharmacy) 1 each PRN DAILY PRN MC SEE COMMENTS Last administered on 09/15/21at 17:22; Start 09/13/21 at 12:15; Stop 09/17/21 at 09:55; Status DC Enoxaparin Sodium (Lovenox 30mg Syringe) 30 mg DAILY SQ ; Start 09/14/21 at 09:00; Stop 09/13/21 at 13:42; Status DC Famotidine (Pepcid) 20 mg QHS PO Last administered on 09/19/21at 22:11; Start 09/13/21 at 21:00 Prochlorperazine Edisylate (Compazine) 10 mg PRN Q6HRS PRN IV NAUSEA/VOMITING, 2nd CHOICE; Start 09/13/21 at 12:15; Stop 09/15/21 at 08:24; Status DC Diphenhydramine HCl (Benadryl) 25 mg PRN Q6HRS PRN IVP ITCHING; Start 09/13/21 at 12:15; Stop 09/15/21 at 08:24; Status DC Diphenhydramine HCl (Benadryl) 25 mg PRN Q6HRS PRN PO ITCHING; Start 09/13/21 at 12:15; Stop 09/15/21 at 08:24; Status DC Diphenhydramine HCl (Benadryl) 25 mg PRN QHS PRN PO INSOMNIA, 1st CHOICE; Start 09/13/21 at 12:15; Stop 09/15/21 at 08:24; Status DC Zolpidem Tartrate (Ambien) 2.5 mg PRN QHS PRN PO INSOMNIA, 2nd CHOICE; Start 09/13/21 at 12:15; Stop 09/15/21 at 08:24; Status DC Vancomycin HCl 1.25 gm/Sodium Chloride 250 ml @ 166.667 mls/hr 1X ONCE IV Last administered on 09/13/21at 16:54; Start 09/13/21 at 13:30; Stop 09/13/21 at 14:59; Status DC Iohexol (Omnipaque 300 Mg/ml) 60 ml 1X ONCE IV Last administered on 09/13/21at 14:05; Start 09/13/21 at 13:45; Stop 09/13/21 at 13:46; Status DC Info (CONTRAST GIVEN -- Rx MONITORING) 1 each PRN DAILY PRN MC SEE COMMENTS; Start 09/13/21 at 13:45; Stop 09/15/21 at 13:44; Status DC Piperacillin Sod/ Tazobactam Sod 2.25 gm/Sodium Chloride 50 ml @ 100 mls/hr Q6HRS IV Last administered on 09/17/21at 05:29; Start 09/13/21 at 18:00; Stop 09/17/21 at 09:55; Status DC Fentanyl Citrate (Fentanyl 2ml Vial) 50 mcg 1X ONCE IVP Last administered on 09/13/21at 15:43; Start 09/13/21 at 15:15; Stop 09/13/21 at 15:16; Status DC Ondansetron HCl (Zofran) 4 mg 1X ONCE IVP ; Start 09/13/21 at 15:15; Stop 09/13/21 at 15:16; Status DC Vancomycin HCl 750 mg/Sodium Chloride 250 ml @ 250 mls/hr Q24H IV Last administered on 09/14/21at 17:58; Start 09/14/21 at 17:00; Stop 09/15/21 at 17:16; Status DC Vancomycin HCl (Vancomycin Trough Level) 1 each 1X ONCE MC Last administered on 09/15/21at 16:30; Start 09/15/21 at 16:30; Stop 09/15/21 at 16:31; Status DC Brimonidine Tartrate (Alphagan) 1 drop BID OU Last administered on 09/20/21at 09:54; Start 09/14/21 at 11:00 Latanoprost (Xalatan) 1 drop QHS OD Last administered on 09/15/21at 20:33; Start 09/14/21 at 21:00; Stop 09/16/21 at 16:23; Status DC Heparin Sodium (Porcine) (HEPARIN for NUC MED) 100 unit 1X ONCE IV ; Start 09/14/21 at 10:30; Stop 09/14/21 at 10:34; Status DC Glycerin/ Hypromellose/ Polyethylene (Artificial Tears) 1 drop BID OU Last administered on 09/20/21at 09:54; Start 09/14/21 at 11:30 Dexamethasone Sodium Phosphate (Maxidex) 1 drop Q4HRS W/A OS Last administered on 09/14/21at 21:12; Start 09/14/21 at 22:00; Stop 09/14/21 at 23:21; Status DC Dexamethasone Sodium Phosphate (Maxidex) 1 drop Q4HRS W/A OD Last administered on 09/20/21at 09:54; Start 09/14/21 at 23:30 Fentanyl Citrate (Fentanyl 2ml Vial) 25 mcg PRN Q3HRS PRN IVP SEVERE PAIN 7-10; Start 09/15/21 at 08:30 Furosemide (Lasix) 20 mg 1X ONCE IVP Last administered on 09/15/21at 10:19; Start 09/15/21 at 09:45; Stop 09/15/21 at 09:54; Status DC Vancomycin HCl 750 mg/Sodium Chloride 250 ml @ 250 mls/hr Q12H IV Last administered on 09/17/21at 05:58; Start 09/15/21 at 18:00; Stop 09/17/21 at 09:55; Status DC Magnesium Sulfate 50 ml @ 25 mls/hr 1X ONCE IV Last administered on 09/16/21at 07:59; Start 09/16/21 at 08:00; Stop 09/16/21 at 09:59; Status DC Latanoprost (Xalatan) 1 drop QHS OU Last administered on 09/19/21at 22:09; Start 09/16/21 at 16:23 Lactobacillus Rhamnosus (Culturelle) 1 cap BID PO Last administered on 09/19/21at 22:10; Start 09/16/21 at 21:00 Potassium Chloride (Klor-Con) 40 meq 1X ONCE PO Last administered on 09/17/21at 11:14; Start 09/17/21 at 10:30; Stop 09/17/21 at 10:31; Status DC Cefdinir (Omnicef) 300 mg BID PO Last administered on 09/20/21at 09:54; Start 09/17/21 at 21:00 Doxycycline Hyclate (Vibra-Tab) 100 mg BID PO Last administered on 09/20/21at 09:53; Start 09/17/21 at 21:00 Guaifenesin/ Codeine Phosphate (Robitussin Ac) 5 ml PRN Q6HRS PRN PO COUGH Last administered on 09/20/21at 11:04; Start 09/17/21 at 11:00 Hydralazine HCl (Apresoline Inj) 10 mg PRN Q4HRS PRN IVP ELEVATED BP, SEE COMMENTS; Start 09/18/21 at 03:15 Potassium Chloride (Klor-Con) 40 meq 1X ONCE PO Last administered on 09/18/21at 14:24; Start 09/18/21 at 12:45; Stop 09/18/21 at 12:54; Status DC Magnesium Sulfate 50 ml @ 25 mls/hr 1X ONCE IV Last administered on 09/18/21at 14:21; Start 09/18/21 at 13:00; Stop 09/18/21 at 14:59; Status DC Metoprolol Tartrate (Lopressor) 12.5 mg BID PO Last administered on 09/20/21at 09:53; Start 09/18/21 at 21:00 Benzonatate (Tessalon Perle) 100 mg [id number] PO Last administered on 09/20/21at 12:40; Start 09/20/21 at 12:00 Active Scripts Active Benzonatate 100 Mg Capsule 1 Cap PO TID PRN 10 Days Metoprolol Tartrate 25 Mg Tablet 12.5 Mg PO BID 30 Days Reported Vyzulta (Latanoprostene Bunod) 5 Ml Drops 1 Drop EACHEYE QHS 30 Days Rhopressa (Netarsudil Mesylate) 2.5 Ml Drops 1 Drop EACHEYE QHS 30 Days Brimonidine Tartrate 5 Ml Drops 1 Drop EACHEYE BID Xalatan (Latanoprost) 2.5 Ml Drops 1 Drop RIGHTEYE QHS Vitals/I & O Vital Sign - Last 24 Hours 09/19/21 09/19/21 09/19/21 09/19/21 19:00 20:00 22:11 23:00 Temp 98.7 99.3 98.7 99.3 Pulse 104 104 101 Resp 18 20 B/P (MAP) 172/83 (112) 172/83 156/81 (106) Pulse Ox 97 92 O2 Delivery Room Air Room Air Room Air 09/20/21 09/20/21 09/20/21 09/20/21 03:00 07:00 08:00 09:53 Temp 98.6 98.4 98.6 98.4 Pulse 105 100 100 Resp 16 18 B/P (MAP) 169/90 (116) 163/93 (116) 163/93 Pulse Ox 93 93 O2 Delivery Room Air Room Air Room Air 09/20/21 09/20/21 11:00 15:00 Temp 98.6 99.3 98.6 99.3 Pulse 113 101 Resp 18 18 B/P (MAP) 133/75 (94) 144/96 (112) Pulse Ox 97 97 O2 Delivery Room Air Room Air Intake and Output 09/19/21 09/19/21 09/20/21 15:00 23:00 07:00 Intake Total 240 ml 200 ml Output Total 0 ml 0 ml 2 ml Balance 240 ml 200 ml -2 ml Justifications for Admission Other Justification Sepsis Nutrition Consultation Dietary Evaluation: Recommendations by RD: Dietary education by RD, Increase Calorie Intake, Protein supplementation Comments: REC Regular diet with strawbery Ensure oral nutrition supplement tid Expected Outcomes/Goals: to meet >75% est nutr needs- goal ongoing Malnutrition Findings: Food and Nutrition Intake (Mod: <75% est energy req 7days Body Fat Depletion (Non Severe: Mod to Severe Weight Status: Underweight YUE SALMON MD Sep 20, 2021 16:00
--- NOTE | 2021-09-20 17:31 | NUR ---
Discharge Note: [facility] Discharge instructions and discharge home medications reviewed with Patient and a copy given. All questions have been answered and understanding verbalized. The following instructions and handouts were given: worsening symptoms, foods high in iron, medication education, and follow up information (cardiology and PCP). Discontinued lines and drains: IV discontinued from RFA, skin intact, and telemetry removed. Patient discharged to home with self care, accompanied by daughter via private vehicle.
== END 2021-09-20 17:05 | disposition home or self-care (01) | DRG 871 ==
LOC: ER 09:28 → 6 SOUTH 11:30 → 1 WEST ICU 15:09 → 5 SOUTH 09-14 17:52
PROVIDERS: ADMIT Internal Medicine; ATTEND Internal Medicine
PROC: 30233N1 Transfusion of Nonautologous Red Blood Cells into Peripheral Vein, Percutaneous Approach (ICD-10-PCS; principal; 2021-09-13)
DX: A41.9 Sepsis, unspecified organism (principal); N17.0 Acute kidney failure with tubular necrosis; J15.6 Pneumonia due to other Gram-negative bacteria; K66.1 Hemoperitoneum; D62 Acute posthemorrhagic anemia; E87.0 Hyperosmolality and hypernatremia; I47.2 Ventricular tachycardia; J98.11 Atelectasis; S36.113A Laceration of liver, unspecified degree, initial encounter; D35.02 Benign neoplasm of left adrenal gland; Z20.822 Contact with and (suspected) exposure to COVID-19; E83.42 Hypomagnesemia; Z96.641 Presence of right artificial hip joint; E87.6 Hypokalemia; I10 Essential (primary) hypertension; K76.89 Other specified diseases of liver; N20.0 Calculus of kidney; R32 Unspecified urinary incontinence; X58.XXXA Exposure to other specified factors, initial encounter; Y93.89 Activity, other specified; Y92.89 Other specified places as the place of occurrence of the external cause; Y99.8 Other external cause status; Z82.49 Family history of ischemic heart disease and other diseases of the circulatory system; Z85.3 Personal history of malignant neoplasm of breast
CPT/HCPCS: 36415; 36430; 71045; 74176; 74177; 76705; 78278; 80048; 80053; 80061; 80076; 80202; 81001; 82274; 82962; 83605; 83690; 83735; 83880; 84100; 84145; 84443; 84484; 85007; 85018; 85025; 85027; 85610; 85730; 86850; 86900; 86901; 86920; 87040; 87086; 87428; 87449; 93005; 93306; 94618; 94760; 96365; 96368; 96374; 96375; 96376; A9560; G0238; J1940; J2405; J2543; J3010; J3370; J3475; J7030; J7050; P9016; Q9967; U0003; 99285-25; C8929; G0378